=== PATIENT | male | born 1950 | race Hispanic/Latino ===

== ENCOUNTER 2017-09-04 11:49 | Outpatient (CLI) | payer MEDICARE ==
--- NOTE | 2017-09-04 13:35 | RAD ---
PA AND LATERAL VIEWS CHEST: HISTORY: Dyspnea. FINDINGS/IMPRESSION: Comparison is made with the exam of 12/08/16. Changes of median sternotomy are again noted. The hear t size is borderline. The aorta is tortuous. Changes of valve replacement surgery are redemonstrate d. There is a right-sided pleural effusion with persistent opacification of the right lung base. Th e left lung is clear. No pneumothoraces are seen. POS: [facility]
== END 2017-09-04 11:50 | disposition home or self-care (01) ==
LOC: RAD 11:49
PROVIDERS: ATTEND Internal Medicine
DX: J90 Pleural effusion, not elsewhere classified (principal); R91.8 Other nonspecific abnormal finding of lung field; Z98.890 Other specified postprocedural states
CPT/HCPCS: 71046

== ENCOUNTER 2017-11-03 15:06 | Emergency (ER) | payer MEDICARE ==
[2017-11-03 16:12] LABS: #Eosinphils 0.2 thou/uL (0.0-0.7); #Lymphocytes 0.9 thou/uL (1.20-3.40); #Monocytes 0.6 thou/uL (0.11-0.59); #Neutrophils 3.7 thou/uL (1.40-6.50); %Basophils 0.2 % (0.0-1.0); %Eosinophils 3.7 % (0.0-10.0); %Monocytes 11.1 % (0.0-10.0); Hemoglobin 11.9 g/dL (14.0-18.0); Mean Corpuscular HGB CONC 33.6 g/dL (32.0-36.0); Mean Corpuscular Hemoglobin 30.9 pg (27.0-31.0); Mean Corpuscular Volume 92.1 fL (78.0-98.0); Mean Platelet Volume 8.5 fL (7.4-10.4); Platelet Count 143 thou/uL (130-400); RBC Distribution Width 13.8 % (11.5-14.5); Red Blood Cell (RBC) Count 3.86 mill/uL (4.70-6.10); White Blood Cell (WBC) Count 5.5 thou/uL (4.8-10.8)
[2017-11-03 16:32] LABS: ALT (SGPT) 12 U/L (8-55); AST (SGOT) 15 U/L (5-34); Albumin 4.2 g/dL (3.4-4.8); Alkaline Phosphatase 129 U/L (40-150); Anion Gap 20 mmol/L (10-20); BUN (Urea Nitrogen) 67 mg/dL (8.4-25.7); Bilirubin, Total 0.5 mg/dL (0.2-1.2); Calc. Creatinine Clearance 0 mL/min (70-130); Calcium 8.8 mg/dL (7.8-10.44); Carbon Dioxide 24 mmol/L (23-31); Chloride 95 mmol/L (98-107); Estimated GFR-MDRD 7; Globulin 3.6 g/dL (2.4-3.5); Glucose 278 mg/dL (80-115); Potassium 6.4 mmol/L (3.5-5.1); Protein, Total 7.8 g/dL (5.8-8.1); Sodium 133 mmol/L (136-145)
[2017-11-03 17:41] LABS: HBSAg Index 0.19 S/CO (0-0.99); Hep B Surf Ag Non-Reactive S/CO (NonReactive)
--- NOTE | 2017-11-03 23:16 | CON ---
DATE OF CONSULTATION: 11/03/2017 REASON FOR CONSULTATION: Hyperkalemia. HISTORY OF PRESENT ILLNESS: This is a 67-year-old gentleman called by the emergency room after noted having a potassium of 6.4. The patient is on a high potassium diet, was dialyzed yesterday. The patient denies headache, numbness, tingling or weakness. EKG, chest pain. PAST MEDICAL HISTORY: Significant for end-stage renal disease, hypertension, anemia, diabetes mellitus, noncompliance with diet, history of AV fistula, cardiac stent. HOME MEDICATIONS: Reviewed. ALLERGIES: Reviewed. Soc eco non contributory FAMILY HISTORY: Negative for ESRD. REVIEW OF SYSTEMS: Fifteen-point review of systems was performed and was negative except for the positives noted above. GENERAL: Weakness. HEAD: Headache. NECK: No swelling or lumps. NOSE: No epistaxis or discharge. EYES: No diplopia or pain. RESPIRATORY: Dyspnea. CARDIOVASCULAR: Chest pain. GASTROINTESTINAL: Nausea. /SHOT MAN: Hematuria. MUSCULOSKELETAL: No joint pain. NEUROPSYCHIATRIC SYSTEMS: No suicidal ideation. No ideation. SKIN: Denies any rash or ulcer. CONSTITUTIONAL: No fever or chills. PHYSICAL EXAMINATION: GENERAL: The patient is awake, alert. VITAL SIGNS: Afebrile, pulse 80, breathing at 16, blood pressure was 125/80. OBJECTIVE: See above. GENERAL APPEARANCE AND MENTAL STATUS: Fair. HEAD/NECK: Normocephalic. Atraumatic. EYES: EOMI. No deformity. EARS: Clear. No ulcers. NOSE: Intact. No lesions. MOUTH: Clear. No discharge. THROAT: Cl ear. No exudate. LUNGS: Clear. No crackles. CARDIAC: S1, S2. No rub. ABDOMEN: Benign. BS+. GENITALIA/RECTUM: Osborne absent. BACK/EXTREMITIES: Edema 0+ Ulcer-. NEUROLOGICAL: Alert and motor intact. SKIN: Rash- Bruise-. LYMPHATICS: Edema- Ulcer-. LABORATORY DATA: Potassium of 6.4. ASSESSMENT AND RECOMMENDATIONS: 1. Stage 6 chronic kidney disease, on dialysis. 2. Hyperkalemia, plan dialysis. 3. Anemia, stable. 4. Medication based on glomerular filtration rate are appropriate, compliance was discussed with the patient. [facility]
== END 2017-11-03 22:25 | disposition home or self-care (01) ==
LOC: ERS 15:06
DX: E87.5 Hyperkalemia (principal); E78.5 Hyperlipidemia, unspecified; I10 Essential (primary) hypertension; I25.10 Atherosclerotic heart disease of native coronary artery without angina pectoris; E11.9 Type 2 diabetes mellitus without complications; Z86.73 Personal history of transient ischemic attack (TIA), and cerebral infarction without residual deficits; Z99.2 Dependence on renal dialysis; Z87.891 Personal history of nicotine dependence; Z79.899 Other long term (current) drug therapy
CPT/HCPCS: 36415; 80053; 80061; 83036; 84443; 85025; 87340; 90935; 93005; G0257

== ENCOUNTER → 2018-02-02 | Day surgery (SDC) | payer MEDICARE ==
[2018-02-01 10:52] VITALS: BMI 25.0
[~2018-02-02] MED LIST: Labetalol HCl 100 MG/20 ML VIAL ONE
--- NOTE | 2018-02-02 19:03 | OP ---
DATE OF PROCEDURE: 02/02/2018 PROCEDURE: Esophagogastroduodenoscopy with biopsy and colonoscopy with snare polypectomy. PREOPERATIVE DIAGNOSIS: Gastroesophageal reflux and nausea and personal history of colon polyps with last colonoscopy in 06/2014. PROCEDURE IN DETAIL: Informed consent was obtained from the patient. He was sedated with total intr avenous anesthesia. The bite block was placed and the endoscope was advanced easily to the second po rtion of the duodenum and retroflexion was performed in the stomach. The esophagus appeared normal o verall; however, there was a possible 0.5-1 cm segment of salmon-colored Calhoun's mucosa in the dist al esophagus, which was biopsied to evaluate for Calhoun's. The stomach had erythematous gastritis i n the fundus and mild erythematous gastritis in the antrum. Biopsies were obtained from the fundus a nd antrum. The duodenum had erythematous gastritis in the first portion of the duodenum. Biopsies w ere obtained from the duodenum. Second portion of the duodenum was normal overall. The colon had a fair prep. The rectal exam was unremarkable. The colonoscope was advanced to the cecum where the il eocecal valve and appendiceal orifice were clearly identified. There was a 6 mm polyp removed from t he cecum by snare cautery polypectomy. A 6 mm polyp was removed from the transverse colon by snare c autery polypectomy. Two 6 mm polyps were removed from the descending colon by snare cautery polypect zuleyka. A 4 mm polyp was removed from the descending colon by cold snare. There were 2 polyps removed from the sigmoid colon by snare cautery polypectomy measuring 5-6 mm each. There was a 4 mm polyp re moved from the sigmoid colon by cold snare polypectomy. Retroflexed views in the rectum were unremar kable. IMPRESSION: 1. Erythematous gastritis in the antrum and fundus of the stomach. Biopsies taken. 2. Possible 0.5 cm segment of Calhoun's esophagus in the distal esophagus, biopsied. 3. Erythematous duodenitis, biopsied. 4. A 6 mm cecum polyp. 5. A 6 mm transverse polyp. 6. Three polyps removed from the descending measuring 4-6 mm. 7. Three polyps removed from the sigmoid colon measuring 4-6 mm. RECOMMENDATIONS: 1. Await histopathology. 2. Repeat colonoscopy in 3 years given the multiple polyps and fair colon prep. 3. Follow up in GI clinic.
== END ==
LOC: SDC 10:25
PROVIDERS: ATTEND Internal Medicine Gastroenterology
PROC: 0DB98ZX Excision of Duodenum, Via Natural or Artificial Opening Endoscopic, Diagnostic (ICD-10-PCS; principal; 2018-02-02)
PROC: 0DB78ZX Excision of Stomach, Pylorus, Via Natural or Artificial Opening Endoscopic, Diagnostic (ICD-10-PCS; 2018-02-02)
PROC: 0DB58ZX Excision of Esophagus, Via Natural or Artificial Opening Endoscopic, Diagnostic (ICD-10-PCS; 2018-02-02)
PROC: 0DBH8ZX Excision of Cecum, Via Natural or Artificial Opening Endoscopic, Diagnostic (ICD-10-PCS; 2018-02-02)
PROC: 0DBL8ZX Excision of Transverse Colon, Via Natural or Artificial Opening Endoscopic, Diagnostic (ICD-10-PCS; 2018-02-02)
PROC: 0DBN8ZX Excision of Sigmoid Colon, Via Natural or Artificial Opening Endoscopic, Diagnostic (ICD-10-PCS; 2018-02-02)
PROC: 0DBM8ZX Excision of Descending Colon, Via Natural or Artificial Opening Endoscopic, Diagnostic (ICD-10-PCS; 2018-02-02)
DX: D12.0 Benign neoplasm of cecum (principal); D12.3 Benign neoplasm of transverse colon; D12.4 Benign neoplasm of descending colon; D12.5 Benign neoplasm of sigmoid colon; K63.5 Polyp of colon; K29.50 Unspecified chronic gastritis without bleeding; K29.80 Duodenitis without bleeding; K20.9 Esophagitis, unspecified; K21.9 Gastro-esophageal reflux disease without esophagitis; F17.200 Nicotine dependence, unspecified, uncomplicated; Z86.010 Personal history of colon polyps; Z99.2 Dependence on renal dialysis; Z79.52 Long term (current) use of systemic steroids; Z79.4 Long term (current) use of insulin; Z79.899 Other long term (current) drug therapy; Z91.018 Allergy to other foods
CPT/HCPCS: 36416; 88305; 88312; 88313

== ENCOUNTER 2018-02-11 02:19 | Inpatient (IN) | payer MEDICARE ==
[2018-02-11] MEDS ORDERED: Ondansetron PF 4 MG/2 ML Vial ONE ×2 (02:24→05:06)
[2018-02-11] MEDS ORDERED: Pantoprazole 40 MG VIAL ONE (02:52)
[2018-02-11 03:05] LABS: #Eosinphils 0.1 thou/uL (0.0-0.7); #Lymphocytes 0.7 thou/uL (1.20-3.40); #Monocytes 0.5 thou/uL (0.11-0.59); #Neutrophils 4.6 thou/uL (1.40-6.50); %Basophils 0.7 % (0.0-1.0); %Lymphocytes 11.3 % (21.0-51.0); %Monocytes 8.3 % (0.0-10.0); %Neutrophils 77.6 % (42.0-75.0); Mean Corpuscular Hemoglobin 30.2 pg (27.0-31.0); Mean Corpuscular Volume 94.4 fL (78.0-98.0); Mean Platelet Volume 9.3 fL (7.4-10.4); Platelet Count 121 thou/uL (130-400); RBC Distribution Width 14.5 % (11.5-14.5); Red Blood Cell (RBC) Count 3.65 mill/uL (4.70-6.10); White Blood Cell (WBC) Count 5.9 thou/uL (4.8-10.8)
[2018-02-11 03:23] LABS: ALT (SGPT) 23 U/L (8-55); AST (SGOT) 26 U/L (5-34); Albumin 4.9 g/dL (3.4-4.8); Alkaline Phosphatase 112 U/L (40-150); Anion Gap 18 mmol/L (10-20); BUN (Urea Nitrogen) 44 mg/dL (8.4-25.7); Bilirubin, Total 0.7 mg/dL (0.2-1.2); CK (CPK) 81 U/L (30-200); Calc. Creatinine Clearance 0 mL/min (70-130); Calcium 10.3 mg/dL (7.8-10.44); Carbon Dioxide 32 mmol/L (23-31); Chloride 94 mmol/L (98-107); Estimated GFR-MDRD 10; Globulin 3.9 g/dL (2.4-3.5); Glucose 168 mg/dL (80-115); Lipase 43 U/L (8-78); Protein, Total 8.8 g/dL (5.8-8.1); Sodium 139 mmol/L (136-145)
[2018-02-11 03:27] LABS: CKMB 2.6 ng/mL (0-6.6)
[2018-02-11 06:30] LABS: Troponin I 0.035 ng/mL (< 0.028)
[2018-02-11] MEDS ORDERED: Acetaminophen 325 MG TAB PO PRN (07:22)
[2018-02-11] MEDS ORDERED: Ondansetron ODT 4 MG TAB PO PRN (07:22)
[2018-02-11] MEDS ORDERED: Ondansetron PF 4 MG/2 ML Vial IVP PRN (07:22)
[2018-02-11] MEDS ORDERED: Sodium Chloride 0.9% 1,000 ML IV SCH ×2 (07:30→16:39)
[2018-02-11 08:22] VITALS: BMI 24.5
[2018-02-11 09:14] LABS: Troponin I 0.032 ng/mL (< 0.028)
--- NOTE | 2018-02-11 11:52 | CON ---
DATE OF CONSULTATION: 02/11/2018 HISTORY OF PRESENT ILLNESS: The patient is a 67-year-old gentleman, patient of Dr. Nagy's, who was in his normal state of health until dialysis yesterday when he finished dialysis and had nicolle e vomiting. He reports vomiting is typical after his dialysis. He tends to vomit every time after d ialysis. This time, it had some blood with it. He says he had vomited blood in the past, but this w as more than typical. The patient just underwent upper and lower endoscopy by Dr. Nagy on 8, which showed some gastritis, duodenitis and several colon polyps. Histopathology showed no signif icant abnormalities. The polyps are mostly adenomatous. He denies any weight loss, any melena or he matochezia. PAST MEDICAL HISTORY: End-stage renal disease. PAST SURGICAL HISTORY: Includes coronary artery bypass and dialysis placement. MEDICATIONS: Include Zocor 40 mg p.o. at bedtime, insulin, Protonix 40 mg p.o. daily, lisinopril 5 m g p.o. daily, isosorbide mononitrate 30 mg p.o. daily, Coreg 12.5 mg p.o. b.i.d., PhosLo 1334 mg p.o. t.i.d., glipizide 5 mg p.o. q.a.m. ALLERGIES: CHEESE. SOCIAL HISTORY: He is a former smoker, does not drink alcohol. FAMILY HISTORY: Negative for GI or liver disease. REVIEW OF SYSTEMS: Constitutional: No fever or chills, no weight loss. Eyes: No blurred vision, d ouble vision. ENT: No sore throat or earaches. Cardiovascular: No chest pain or palpitations. Pu lmonary: No shortness of breath, cough or wheezing. Gastrointestinal: See above. Genitourinary: No hematuria or dysuria. Musculoskeletal: No joint pain or muscle weakness. PHYSICAL EXAMINATION: VITAL SIGNS: Temperature 98.0, pulse 72, respiratory rate 18, blood pressure 142/64. HEENT: Unremarkable. NECK: Supple. CHEST: Clear. CARDIOVASCULAR: Regular rate and rhythm. ABDOMEN: Soft, nontender, without organomegaly or masses. EXTREMITIES: Normal. RECTAL: Deferred. LABORATORY DATA: Shows a white blood cell count of 5.9, hemoglobin 11.0, hematocrit 34.4. Chemistri es show a BUN of 44, creatinine 5.64, CO2 32. ASSESSMENT: 1. Hematemesis - this may be a mild Babs-Lugo tear or may be some gastritis. I doubt this is cl inically significant as his H&H were fairly normal. 2. Chronic vomiting after dialysis. 3. End-stage renal disease on hemodialysis. 4. Coronary artery disease. RECOMMENDATIONS: 1. Frequent antiemetics. 2. May begin clear liquids. 3. We would not repeat EGD at this time unless symptoms persist. 4. Low dose Reglan.
[2018-02-11] MEDS: Metoclopramide HCl 10 MG/2 ML VIAL IVP SCH ×2 (13:59→21:37)
[2018-02-11] MEDS ORDERED: Dextrose 50% Abboject 50 ML SYRINGE SLOW IVP PRN (16:41)
[2018-02-11] MEDS ORDERED: HumaLOG 300 UNITS/3 ML VIAL SC PRN ×2 (16:41)
[2018-02-11] MEDS ORDERED: Dextrose 5% in Water 1,000 ML IV PRN (16:41)
[2018-02-11] MEDS: Calcium Acetate 667 MG CAP PO SCH (18:00)
[2018-02-11] MEDS: Carvedilol 25 MG TAB PO SCH (21:36)
--- NOTE | 2018-02-11 23:59 | HP ---
DATE OF ADMISSION: 02/11/2018 PRIMARY CARE PROVIDER: Dr. Alfie Smith. CHIEF COMPLAINT: Nausea and vomiting. HISTORY OF PRESENT ILLNESS: This is a 67-year-old male who presented to [facility] Emergency Department after complaining of emesis starting approximately 1900 p.m. on 02/10/2018. [facility] patient states he typically has nausea and vomiting after dialysis which he completed on 02/10/2018 . The patient noted small amount of blood in his vomitus and has had previous episodes of hematemesi s. The patient recently underwent EGD and colonoscopy exam on 02/02/2018 showing mild gastritis in [facility] antrum and fundus of the stomach. The patient was also noted with mild 0.5 cm segment of Calhoun' s esophagus in the distal region. Patient reports that he typically has some nausea after completing dialysis, which he has been consistent with it. The patient denied taking any specific home remedie s and presented to emergency room for evaluation. The patient denied any recent trauma, injury or an ticoagulation exposure. The patient denied any recent travel history or change to his bowel habits. In the emergency room, the patient underwent general evaluation receiving IV Zofran and Protonix. C BC assessment showed hemoglobin of 11 consistent with prior values. The patient was transferred to [facility] telemetry unit for further evaluation and monitoring. PAST MEDICAL HISTORY: 1. Gastritis/esophagitis. 2. End-stage renal disease with hemodialysis. 3. History of paroxysmal atrial fibrillation. 4. Diabetes mellitus type 2. 5. Hypertension. 6. Anemia of chronic kidney disease. 3. Gastroesophageal reflux disease. PAST SURGICAL HISTORY: 1. Status post aortic valve replacement in 2017. 2. Status post AV fistula placement in the right upper extremity. CURRENT MEDICATIONS: 1. PhosLo 1334 mg p.o. t.i.d. 2. Coreg 12.5 mg p.o. b.i.d. 3. Glipizide 5 mg p.o. q.a.m. 4. Humulin R. b.i.d. with meals. 5. Isosorbide mononitrate 30 mg p.o. daily. 6. Lisinopril 5 mg p.o. daily. 7. Protonix 40 mg p.o. daily. 8. Zocor 40 mg p.o. at bedtime. ALLERGIES: No known drug allergies. FAMILY HISTORY: Positive for diabetes and hypertension. SOCIAL HISTORY: No current alcohol, tobacco or illicit drug use. Accompanied by his son in the hosp ital. REVIEW OF SYSTEMS: The following complete review of systems was negative, unless otherwise mentioned in the HPI or below: Constitutional: Weight loss or gain, ability to conduct usual activities. Skin: Rash, itching. Eyes: Double vision, pain. ENT/Mouth: Nose bleeding, neck stiffness, pain, tenderness. Cardiovascular: Palpitations, dyspnea on exertion, orthopnea. Respiratory: Shortness of breath, wheezing, cough, hemoptysis, fever or night sweats. Gastrointestinal: Poor appetite, abdominal pain, heartburn, nausea, vomiting, constipation, or diarr hea. Genitourinary: Urgency, frequency, dysuria, nocturia. Musculoskeletal: Pain, swelling. Neurologic/Psychiatric: Anxiety, depression. Allergy/Immunologic: Skin rash, bleeding tendency. Otherwise negative except as stated per HPI. PHYSICAL EXAMINATION: VITAL SIGNS: Currently, blood pressure 139/62, pulse 65, respiratory rate 17, temperature 97.5 degre es Fahrenheit, O2 saturation 94% on room air. GENERAL APPEARANCE: This is a 67-year-old male, alert and responsive, smiling, in no acute distress. HEENT: Pupils are equal, round, and reactive to light and accommodation. Extraocular muscles are in tact. No scleral icterus, no conjunctival injection. Nares patent. OP is clear. Teeth in poor rep air. NECK: Supple, no cervical adenopathy, no thyromegaly, no carotid bruits, no JVD noted. No meningeal signs noted. CHEST: Lungs are clear to auscultation bilaterally. CARDIOVASCULAR: S1, S2 with 1-2/6 systolic ejection murmur in the right upper sternal border. ABDOMEN: Soft, rounded, nontender, nondistended. Bowel sounds are positive in all four quadrants. There is no hepatosplenomegaly, no abdominal bruits, no rebound or guarding noted. EXTREMITIES: Warm and dry with fair turgor. No clubbing, cyanosis or asymmetric edema appreciated. Pulses are palpable distally at the dorsalis pedis, posterior tibial, and popliteal arteries bilater ally. Capillary refill less than 2 seconds. Right upper extremity AV fistula noted. NEUROLOGIC: Cranial nerves II-XII are grossly intact. No focal or lateralizing signs appreciated. PERTINENT LABORATORY AND X-RAY FINDINGS: Sodium 139, potassium 5.0, chloride 94, CO2 of 32, BUN 44, creatinine 5.65, estimated GFR of 10, glucose 168, calcium 10.3. LFTs within normal limits. Lipase 43, troponin I ranged between 0.030-0.035. CBC showed a white blood cell count of 5.9, hemoglobin 11 , hematocrit 34, platelet count 121 with 78% neutrophils. Gastric occult blood positive x1 on 2017. EKG dated 02/11/2018 by my interpretation shows sinus mechanism with heart rates in the 60s. Normal R-wave progression noted in precordial leads. Isolated T-wave inversion in lead V6. No acute ST-T wave changes appreciated. ASSESSMENT AND PLAN: 1. Hematemesis. Suspect mild Babs-Lugo tear with emesis. We will continue antiemetics and nano tor clinical response. IV fluids with normal saline at 50 mL per hour. Continue Protonix 40 mg p.o. daily. Serial CBC. Recent EGD completed on 02/02/2018. 2. Nausea and vomiting. Appears correlated with hemodialysis sessions. Recommend antiemetics prior to and during hemodialysis sessions. 3. End-stage renal disease with hemodialysis. Stable currently. No evidence to suggest acute volum e overload. Resume regular hemodialysis sessions on 02/12/2018. 4. Anemia of chronic kidney disease. Stable hemoglobin trend when comparing hemoglobin dating back to 2017. Repeat CBC in the a.m. 5. Diabetes mellitus type 2. Resume home oral hypoglycemics when tolerating p.o. intake. Accu-Chek s a.c. and at bedtime. Insulin sliding scale for reflexive coverage. 6. Hypertension. Resume home antihypertensive regimen and monitor clinical response. 7. Prophylaxis. Sequential compression devices while in bed. Protonix 40 mg p.o. daily. 8. Code status is FULL. Surrogate medical decision maker is patient's son.
[2018-02-12] MEDS: Metoclopramide HCl 10 MG/2 ML VIAL IVP SCH ×3 (05:55→21:31)
[2018-02-12 06:50] LABS: Band 3 % (5-11); Hemoglobin 9.9 g/dL (14.0-18.0); Lymphocytes 15 % (21-51); MDiff Complete? YES; Mean Corpuscular HGB CONC 31.9 g/dL (32.0-36.0); Mean Corpuscular Hemoglobin 30.3 pg (27.0-31.0); Mean Corpuscular Volume 95.1 fL (78.0-98.0); Mean Platelet Volume 9.3 fL (7.4-10.4); Monocytes 11 % (0-10); Neutrophil 71 % (42-75); PLT Morphology Comment Appears Decreased; Platelet Count 104 thou/uL (130-400); RBC Distribution Width 14.2 % (11.5-14.5); Red Blood Cell (RBC) Count 3.27 mill/uL (4.70-6.10); White Blood Cell (WBC) Count 6.4 thou/uL (4.8-10.8)
[2018-02-12 07:01] LABS: ALT (SGPT) 14 U/L (8-55); AST (SGOT) 14 U/L (5-34); Albumin 4.1 g/dL (3.4-4.8); Alkaline Phosphatase 92 U/L (40-150); Anion Gap 16 mmol/L (10-20); BUN (Urea Nitrogen) 66 mg/dL (8.4-25.7); Bilirubin, Total 0.6 mg/dL (0.2-1.2); Calc. Creatinine Clearance 9 mL/min (70-130); Calcium 9.2 mg/dL (7.8-10.44); Carbon Dioxide 26 mmol/L (23-31); Chloride 101 mmol/L (98-107); Estimated GFR-MDRD 8; Glucose 87 mg/dL (80-115); Potassium 5.4 mmol/L (3.5-5.1); Protein, Total 7.1 g/dL (5.8-8.1); Sodium 138 mmol/L (136-145)
[2018-02-12] MEDS: Calcium Acetate 667 MG CAP PO SCH ×3 (08:34→18:39)
[2018-02-12] MEDS: Lisinopril 5 MG TAB PO SCH ×2 (08:35→12:59)
[2018-02-12] MEDS: glipiZIDE 5 MG TAB PO SCH (08:35)
[2018-02-12] MEDS: Carvedilol 25 MG TAB PO SCH ×2 (08:49→21:31)
[2018-02-12 12:41] LABS: Hemoglobin 9.6 g/dL (14.0-18.0)
--- NOTE | 2018-02-12 14:55 | PDOC.PN ---
- Subjective Encounter Start Date: 02/12/18 Encounter Start Time: 09:00 Patient seen and examined for GI bleeding. No new hematemesis/melena. No overnight events - Objective MAR Reviewed: Yes Vital Signs & Weight: Vital Signs (12 hours) Temp Pulse Resp BP Pulse Ox 02/12/18 12:59 60 02/12/18 12:00 98.1 F 52 L 128/71 94 L 02/12/18 08:00 98.3 F 60 17 135/63 98 02/12/18 03:25 98.1 F 62 14 143/67 H 93 L Weight Weight 139 lb 11.2 oz I&O: 02/11/18 02/12/18 02/13/18 06:59 06:59 06:59 Intake Total 1000 Output Total 30 Balance 970 Result Diagrams: 02/12/18 12:24 02/12/18 05:56 Additional Labs: Accuchecks 02/12/18 02/12/18 02/11/18 10:55 05:57 20:39 POC Glucose 230 H 85 177 H 02/11/18 17:06 POC Glucose 87 EKG Reviewed by me: Yes (Tele SR) Phys Exam - Physical Examination Constitutional: NAD Respiratory: no wheezing, no rhonchi Cardiovascular: RRR, no rub Gastrointestinal: soft, non-tender, positive bowel sounds Musculoskeletal: no edema Neurological: moves all 4 limbs Dx/Plan - Plan DVT proph w/SCDs 1. UGI bleed Monitor HH Cont PPI 2. ESRD on dialysis / Hyperkalemia Consult Nephrology for dialysis today (MWF) 3. Acute GI blood loss Anemia 4. CAD Cont Coreg Hold ACEI due to hyperkalemia 5. DM2 Cont sliding scale with Glipizide 6. Other issues per previous notes Review of Systems - Review of Systems Respiratory: negative: Cough, Dry, Shortness of Breath, Hemoptysis, SOB with Excertion, Pleuritic Pain, Sputum, Wheezing Cardiovascular: negative: chest pain, palpitations, orthopnea, paroxysmal nocturnal dyspnea, edema, light headedness, other - Medications/Allergies Allergies/Adverse Reactions: Allergies Allergy/AdvReac Type Severity Reaction Status Date / Time cheese Allergy Verified 02/11/18 08:26 Medications: Current Medications Calcium Acetate (Phoslo) 1,334 mg PO TID-[facility] Last Admin: 02/12/18 12:58 Dose: 1,334 mg Carvedilol (Coreg) 12.5 mg PO BID [facility] Last Admin: 02/12/18 08:49 Dose: 12.5 mg Dextrose/Water (Dextrose 50%) 25 gm SLOW IVP PRN PRN PRN Reason: Hypoglycemia Glipizide (Glucotrol) 5 mg PO QAM [facility] Last Admin: 02/12/18 08:35 Dose: 5 mg Glucagon (Glucagon) 1 mg IM PRN PRN PRN Reason: Hypoglycemia Dextrose/Water (D5w) 1,000 mls @ 0 mls/hr IV .Q0M PRN PRN Reason: Hypoglycemia Insulin Human Lispro (Humalog) 0 units SC .MILD SLIDING SCALE PRN PRN Reason: Mild Correctional Scale Insulin Human Lispro (Humalog) 0 units SC .BEDTIME SLIDING SC PRN PRN Reason: Bedtime Correctional Scale Lisinopril (Zestril) 5 mg PO DAILY [facility] Last Admin: 02/12/18 12:59 Dose: Not Given Metoclopramide HCl (Reglan) 5 mg IVP Q8HR [facility] Last Admin: 02/12/18 14:11 Dose: Not Given Pantoprazole Sodium (Protonix) 40 mg PO DAILY [facility] Last Admin: 02/12/18 08:35 Dose: 40 mg Sodium Chloride (Flush - Normal Saline) 10 ml IVF Q12HR [facility] Last Admin: 02/12/18 08:39 Dose: 10 ml Sodium Chloride (Flush - Normal Saline) 10 ml IVF PRN PRN PRN Reason: Saline Flush
[2018-02-12] MEDS ORDERED: hydrALAZINE 20 MG/ML VIAL SLOW IVP PRN (14:59)
--- NOTE | 2018-02-12 22:41 | CON ---
DATE OF CONSULTATION: 02/12/2018 NEPHROLOGY CONSULTATION REASON FOR CONSULTATION: End-stage renal disease, on maintenance hemodialysis. HISTORY OF PRESENT ILLNESS: A 67-year-old gentleman who presented to the hospital yesterday evening for nausea and vomiting. The patient denies headache, numbness, tingling or weakness. Denies any na usea at this time. PAST MEDICAL HISTORY: Significant for GERD, end-stage renal disease, hypertension, diabetes mellitus , atrial fibrillation, anemia, chronic kidney, status aortic valve replacement, AV fistula. HOME MEDICATIONS: Reviewed. HOSPITAL MEDICATIONS: Reviewed. ALLERGIES: Reviewed. SOCIAL HISTORY: No alcohol or drug use. REVIEW OF SYSTEMS: A 15-point review of systems was performed and was negative except for positives noted above. GENERAL: Weakness- HEAD: Headache- NECK: No swelling or lumps. NOSE: No epistaxis or discharge. EYES: No diplopia or pain. RESPIRATORY: Dyspnea- CARDIOVASCULAR: Chest pain- GASTROINTESTINAL: Nausea- /PHARMACOLOGY PROFESSOR: Hematuria- MUSCULOSKELETAL: No joint pain. NEUROPSYCHIATIC SYSTEMS: No suicidal ideation. No ideation. SKIN: Denies any rash or ulcer. CONSTITUTIONAL: No fever or chills. PHYSICAL EXAMINATION: GENERAL APPEARANCE: The patient is awake and alert. VITAL SIGNS: Afebrile, pulse 63, respirations 16, blood pressure 135/66. HEAD/NECK: Normocephalic. Atraumatic. EYES: EOMI. No deformity. EARS: Clear. No ulcers. NOSE: Intact. No lesions. MOUTH: Clear. No discharge. THROAT: Clear. No exudate. LUNGS: Clear. No crackles. CARDIAC: S1, S2. No rub. ABDOMEN: Benign. BS+. GENITALIA/RECTUM: Osborne absent. BACK/EXTREMITIES: Edema 0+ Ulcer- NEUROLOGICAL: Alert and motor intact. SKIN: Rash- Bruise- LYMPHATICS: Edema- Ulcer- LABORATORY DATA: Show hemoglobin 9.6, potassium 5.4. ASSESSMENT AND PLAN: 1. Stage 6 chronic kidney disease, plan hemodialysis. 2. Hypertension, stable. 3. Hyperkalemia, plan dialysis. 4. Anemia, stable. 5. Medications based on glomerular filtration rate are appropriate.
[2018-02-13 05:56] LABS: #Eosinphils 0.2 thou/uL (0.0-0.7); #Lymphocytes 0.7 thou/uL (1.20-3.40); #Monocytes 0.6 thou/uL (0.11-0.59); #Neutrophils 3.7 thou/uL (1.40-6.50); %Basophils 0.3 % (0.0-1.0); %Eosinophils 2.9 % (0.0-10.0); %Lymphocytes 14.2 % (21.0-51.0); %Monocytes 10.7 % (0.0-10.0); %Neutrophils 71.9 % (42.0-75.0); Hemoglobin 9.5 g/dL (14.0-18.0); Mean Corpuscular HGB CONC 32.1 g/dL (32.0-36.0); Mean Corpuscular Hemoglobin 30.4 pg (27.0-31.0); Mean Corpuscular Volume 94.5 fL (78.0-98.0); Mean Platelet Volume 9.4 fL (7.4-10.4); Platelet Count 102 thou/uL (130-400); RBC Distribution Width 14.2 % (11.5-14.5); Red Blood Cell (RBC) Count 3.13 mill/uL (4.70-6.10); White Blood Cell (WBC) Count 5.1 thou/uL (4.8-10.8)
[2018-02-13 06:05] LABS: Anion Gap 13 mmol/L (10-20); BUN (Urea Nitrogen) 28 mg/dL (8.4-25.7); Calc. Creatinine Clearance 13 mL/min (70-130); Calcium 9.2 mg/dL (7.8-10.44); Carbon Dioxide 30 mmol/L (23-31); Chloride 97 mmol/L (98-107); Estimated GFR-MDRD 12; Glucose 85 mg/dL (80-115); Potassium 4.2 mmol/L (3.5-5.1); Sodium 136 mmol/L (136-145)
[2018-02-13] MEDS: Metoclopramide HCl 10 MG/2 ML VIAL IVP SCH (06:09)
[2018-02-13] MEDS: Calcium Acetate 667 MG CAP PO SCH ×2 (08:25→13:15)
[2018-02-13] MEDS: Carvedilol 25 MG TAB PO SCH (08:25)
[2018-02-13] MEDS: glipiZIDE 5 MG TAB PO SCH (08:25)
--- NOTE | 2018-02-13 11:36 | EKG ---
Test Reason : Blood Pressure : / mmHG Vent. Rate : 064 BPM Atrial Rate : 064 BPM P-R Int : 156 ms QRS Dur : 092 ms QT Int : 456 ms P-R-T Axes : 080 039 138 degrees QTc Int : 470 ms Normal sinus rhythm T wave abnormality, consider lateral ischemia Prolonged QT Abnormal ECG Confirmed by ZAKIA MARTINEZ DO ([id number]), editor in chief newspaper CARA HART ([id number]) on 02/13/2018 11:35:49 AM Referred By: Confirmed By:ZAKIA MARTINEZ DO
--- NOTE | 2018-02-13 11:51 | PRG ---
DATE OF SERVICE: 02/13/2018 SUBJECTIVE: A 67-year-old gentleman being seen for end-stage renal disease. Patient denies any naus ea, vomiting or chest pain. PHYSICAL EXAMINATION: GENERAL: Patient is awake, alert. VITAL SIGNS: Afebrile, pulse 85, breathing 16, blood pressure was 133/65. HEAD/NECK: Normocephalic. Atraumatic. EYES: EOMI. No deformity. EARS: Clear. No ulcers. NOSE: Intact. No lesions. MOUTH: Clear. No discharge. THROAT: Clear. No exudate. LUNGS: Clear. No crackles. CARDIAC: S1, S2. No rub. ABDOMEN: Benign. BS+. GENITALIA/RECTUM: Osborne absent. BACK/EXTREMITIES: Edema 0+ Ulcer- NEUROLOGICAL: Alert and motor intact. SKIN: Rash- Bruise- LYMPHATICS: Edema- Ulcer- LABORATORY DATA: Show hemoglobin 9.5, creatinine 4.8. ASSESSMENT AND RECOMMENDATIONS: 1. Stage 6 chronic kidney disease. We will plan dialysis on Thursday. 2. Hypertension, stable. 3. Anemia, stable. 4. Medications based on glomerular filtration rate are appropriate.
[2018-02-13 12:10] VITALS: BP 128/64; TEMP 98.2
--- NOTE | 2018-02-14 07:15 | DIS ---
DATE OF DISCHARGE: 02/13/2018 DISCHARGE DISPOSITION: Home. FOLLOWUP: 1. Follow up with primary care physician, Dr. Smith. 2. Follow up with Dr. Aung Nagy after 2 weeks. The patient was seen and examined on the day of discharge. Denies any new complaints. No chest pain , shortness of breath or palpitations. BRIEF HOSPITAL COURSE: The patient is a 67-year-old male with recent EGD, presented to the emergency room with nausea, vomiting, and hematemesis. Please refer to the history and physical for further d etails. The patient was admitted to the hospital with a diagnosis of suspected upper GI bleeding. The patien t was seen by Gastroenterology, Dr. Skyler Wong. Please note that he underwent EGD recently as outpat ient by Dr. Nagy. He was started on PPIs. His H and H on admission was 11 and at discharge is 9.5. There was no need to repeat EGD per Gastroenterology. He also underwent hemodialysis during this h ospital stay. He has been cleared by Gastroenterology for discharge. FINAL DIAGNOSES: 1. Upper gastrointestinal bleed, probably secondary to gastritis, resolved. 2. Acute gastrointestinal blood loss anemia. 3. End-stage renal disease, on dialysis, with hyperkalemia, improved. 4. Coronary artery disease. 5. Diabetes mellitus, type 2. Plan of care was discussed with the patient in detail. He stated understanding.
== END 2018-02-13 15:00 | disposition home or self-care (01) | DRG 377 ==
LOC: ERS 02:19 → 2NO 07:15
PROVIDERS: ADMIT Internal Medicine; ATTEND Internal Medicine
PROC: 5A1D70Z Performance of Urinary Filtration, Intermittent, Less than 6 Hours Per Day (ICD-10-PCS; principal; 2018-02-11)
DX: K92.2 Gastrointestinal hemorrhage, unspecified (principal); N18.6 End stage renal disease; I12.0 Hypertensive chronic kidney disease with stage 5 chronic kidney disease or end stage renal disease; D62 Acute posthemorrhagic anemia; Z95.1 Presence of aortocoronary bypass graft; I25.10 Atherosclerotic heart disease of native coronary artery without angina pectoris; K21.9 Gastro-esophageal reflux disease without esophagitis; Z99.2 Dependence on renal dialysis; I48.0 Paroxysmal atrial fibrillation; E11.22 Type 2 diabetes mellitus with diabetic chronic kidney disease; D63.1 Anemia in chronic kidney disease; Z95.2 Presence of prosthetic heart valve; Z79.899 Other long term (current) drug therapy; Z79.4 Long term (current) use of insulin; E87.5 Hyperkalemia
CPT/HCPCS: 36415; 36416; 80048; 80053; 82271; 82550; 82553; 83690; 84484; 85007; 85025; 85027; 93005; 94760; 96374; 96375; 96376; C9113; J2405; J2765

== ENCOUNTER 2018-03-17 17:37 | Emergency (ER) | payer MEDICARE ==
[2018-03-17] MEDS ORDERED: Oxymetazoline HCl 0.05% ( 15 ML ) ONE (18:27)
[2018-03-17 18:50] LABS: #Eosinphils 0.2 thou/uL (0.0-0.7); #Lymphocytes 0.6 thou/uL (1.20-3.40); #Monocytes 0.6 thou/uL (0.11-0.59); #Neutrophils 4.2 thou/uL (1.40-6.50); %Basophils 0.8 % (0.0-1.0); %Eosinophils 2.9 % (0.0-10.0); %Monocytes 10.3 % (0.0-10.0); Hemoglobin 11.4 g/dL (14.0-18.0); Mean Corpuscular HGB CONC 32.7 g/dL (32.0-36.0); Mean Corpuscular Hemoglobin 31.7 pg (27.0-31.0); Mean Platelet Volume 8.7 fL (7.4-10.4); Platelet Count 138 thou/uL (130-400); RBC Distribution Width 14.1 % (11.5-14.5); Red Blood Cell (RBC) Count 3.59 mill/uL (4.70-6.10); White Blood Cell (WBC) Count 5.5 thou/uL (4.8-10.8)
[2018-03-17 19:00] LABS: INR-International Normal Ratio 1.1; Prothrombin Time 14.3 SEC (12.0-14.7)
[2018-03-17 19:01] LABS: PTT 31.6 SEC (22.9-36.1)
[2018-03-17 19:15] LABS: ALT (SGPT) 13 U/L (8-55); AST (SGOT) 19 U/L (5-34); Albumin 4.4 g/dL (3.4-4.8); Alkaline Phosphatase 112 U/L (40-150); Anion Gap 15 mmol/L (10-20); BUN (Urea Nitrogen) 30 mg/dL (8.4-25.7); Bilirubin, Total 0.5 mg/dL (0.2-1.2); Calc. Creatinine Clearance 0 mL/min (70-130); Calcium 8.8 mg/dL (7.8-10.44); Carbon Dioxide 27 mmol/L (23-31); Chloride 100 mmol/L (98-107); Estimated GFR-MDRD 12; Globulin 3.7 g/dL (2.4-3.5); Glucose 133 mg/dL (80-115); Potassium 4.7 mmol/L (3.5-5.1); Protein, Total 8.1 g/dL (5.8-8.1); Sodium 137 mmol/L (136-145)
== END 2018-03-17 19:31 | disposition home or self-care (01) ==
LOC: ERS 17:37
DX: R04.0 Epistaxis (principal); E78.5 Hyperlipidemia, unspecified; I10 Essential (primary) hypertension; I25.10 Atherosclerotic heart disease of native coronary artery without angina pectoris; E11.9 Type 2 diabetes mellitus without complications; Z86.73 Personal history of transient ischemic attack (TIA), and cerebral infarction without residual deficits; Z87.891 Personal history of nicotine dependence; Z79.82 Long term (current) use of aspirin; Z79.899 Other long term (current) drug therapy
CPT/HCPCS: 30901; 36415; 80053; 85025; 85610; 85730

== ENCOUNTER 2018-05-19 20:30 | Outpatient (CLI) | payer MEDICARE | END 2018-05-19 20:31 | disposition home or self-care (01) | LOC: SLEEPLAB 20:30 | PROVIDERS: ATTEND Internal Medicine | DX: G47.33 Obstructive sleep apnea (adult) (pediatric) (principal); K21.9 Gastro-esophageal reflux disease without esophagitis; R06.83 Snoring; I10 Essential (primary) hypertension; I25.10 Atherosclerotic heart disease of native coronary artery without angina pectoris; I63.9 Cerebral infarction, unspecified; E11.9 Type 2 diabetes mellitus without complications; G47.61 Periodic limb movement disorder | CPT/HCPCS: 95811 ==

== ENCOUNTER 2018-06-02 23:01 | Inpatient (IN) | payer MEDICARE ==
[2018-06-03 00:32] LABS: #Eosinphils 0.1 thou/uL (0.0-0.7); #Lymphocytes 0.7 thou/uL (1.20-3.40); #Monocytes 0.6 thou/uL (0.11-0.59); #Neutrophils 4.5 thou/uL (1.40-6.50); %Basophils 0.4 % (0.0-1.0); %Monocytes 10.5 % (0.0-10.0); %Neutrophils 75.1 % (42.0-75.0); Hemoglobin 10.6 g/dL (14.0-18.0); Mean Corpuscular HGB CONC 32.3 g/dL (32.0-36.0); Mean Corpuscular Volume 92.9 fL (78.0-98.0); Mean Platelet Volume 8.1 fL (7.4-10.4); Platelet Count 151 thou/uL (130-400); RBC Distribution Width 14.1 % (11.5-14.5); Red Blood Cell (RBC) Count 3.55 mill/uL (4.70-6.10)
[2018-06-03 00:53] LABS: ALT (SGPT) 9 U/L (8-55); AST (SGOT) 12 U/L (5-34); Albumin 3.8 g/dL (3.4-4.8); Alkaline Phosphatase 91 U/L (40-150); Anion Gap 16 mmol/L (10-20); BUN (Urea Nitrogen) 34 mg/dL (8.4-25.7); Bilirubin, Total 0.6 mg/dL (0.2-1.2); CRP (Inflammatory) 9.35 mg/dL (= or < 0.5); Calc. Creatinine Clearance 0 mL/min (70-130); Calcium 8.9 mg/dL (7.8-10.44); Carbon Dioxide 28 mmol/L (23-31); Chloride 96 mmol/L (98-107); Estimated GFR-MDRD 10; Globulin 3.4 g/dL (2.4-3.5); Glucose 236 mg/dL (80-115); Potassium 4.6 mmol/L (3.5-5.1); Protein, Total 7.2 g/dL (5.8-8.1); Sodium 135 mmol/L (136-145)
[2018-06-03 01:13] LABS: CKMB 2.4 ng/mL (0-6.6)
[2018-06-03] MEDS ORDERED: Piperacillin/Tazobactam 3.375 GM VIAL ONE (02:43)
[2018-06-03 03:38] VITALS: BMI 24.8
[2018-06-03] MEDS ORDERED: Acetaminophen 325 MG TAB PO PRN (04:08)
[2018-06-03] MEDS ORDERED: Ondansetron ODT 4 MG TAB SL PRN (04:08)
[2018-06-03] MEDS ORDERED: Ondansetron PF 4 MG/2 ML Vial IVP PRN (04:08)
--- NOTE | 2018-06-03 08:34 | RAD ---
THREE VIEWS OF THE RIGHT FOOT: Comparison: None. History: Right great toe pain. FINDINGS: Three views of the right foot shows soft tissue swelling at the tip of the great toe. There may be so me air in the soft tissues of the toe. No obvious fracture or dislocation is seen. IMPRESSION: No evidence of acute osseous abnormality. POS: [facility]
[2018-06-03] MEDS ORDERED: Prevnar 13-Val Conj/PF 0.5 ML SYRINGE IM ONE (09:00)
--- NOTE | 2018-06-03 12:35 | CON ---
DATE OF CONSULTATION: REASON FOR CONSULTATION: End-stage renal disease, on maintenance hemodialysis. HISTORY OF PRESENT ILLNESS: This is a very pleasant 68-year-old gentleman presented to the hospital with a foot infection. The patient denies any nausea, vomiting, or chest pain. The patient dialyzes Thursday, Thursday, Thursday, and was last dialyzed yesterday without any complications. PAST MEDICAL HISTORY: Significant for hypertension, GERD, diabetes mellitus, atrial fibrillation, anemia of chronic disease, tunneled dialysis catheter, aortic valve replacement, AV fistula, tunneled dialysis catheter. MEDICATION: List reviewed. ALLERGIES: REVIEWED. REVIEW OF SYSTEMS: 15-point review of systems was performed and was negative except for positives noted above. GENERAL: HEAD: NECK: No swelling or lumps. NOSE: No epistaxis or discharge. EYES: No diplopia or pain. RESPIRATORY: CARDIOVASCULAR: GASTROINTESTINAL: /SENIOR NET SOFTWARE ENGINEER: MUSCULOSKELETAL: No joint pain. NEUROPSYCHIATRIC SYSTEMS: No suicidal ideation. No ideation. SKIN: Denies any rash or ulcer. CONSTITUTIONAL: No fever or chills. PHYSICAL EXAMINATION: See above. CONSTITUTIONAL: Awake, alert, in no acute distress. VITAL SIGNS: Afebrile. Pulse is 64, breathing 16, blood pressure 103/57. GENERAL APPEARANCE AND MENTAL STATUS: Fair. HEAD/NECK: Normocephalic. Atraumatic. EYES: EOMI. No deformity. EARS: Clear. No ulcers. NOSE: Intact. No lesions. MOUTH: Clear. No discharge. THROAT: Clear. No exudate. LUNGS: Clear. No crackles. CARDIAC: S1, S2. No rub. ABDOMEN: Benign. Bowel sounds positive. GENITALIA/RECTUM: Osborne absent. BACK/EXTREMITIES: Edema 0+. NEUROLOGICAL: Alert and motor intact. SKIN: LYMPHATICS: LABORATORY DATA: Reviewed. ASSESSMENT AND PLAN: 1. Stage 6 chronic kidney disease, plan dialysis tomorrow. 2. Hypertension, stable. 3. Anemia, stable. 4. Cellulitis, management per primary team. Job ID: [id number]
[2018-06-03] MEDS: Calcium Acetate 667 MG CAP PO SCH ×2 (13:18→18:01)
[2018-06-03] MEDS: Metoclopramide HCl 10 MG TAB PO SCH ×2 (13:19→20:50)
[2018-06-03] MEDS ORDERED: Dextrose 5% in Water 1,000 ML IV PRN (15:48)
[2018-06-03] MEDS ORDERED: Dextrose 50% Abboject 50 ML SYRINGE SLOW IVP PRN (15:48)
--- NOTE | 2018-06-03 16:38 | CON ---
DATE OF CONSULTATION: HISTORY OF PRESENT ILLNESS: This is a 68-year-old gentleman, who presents with some gangrenous infection in his right great toe. He has been seen by Dr. Underwood and prepared for a toe amputation; however, there is some concern about his vascular status. PAST MEDICAL HISTORY: Includes hypertension, atrial fibrillation, type 2 diabetes mellitus, end-stage renal disease. He also had history of aortic valve stenosis, undergoing aortic valve replacement this past Fall. PAST SURGICAL HISTORY: Also includes AV fistula. SOCIAL HISTORY: He is a nonsmoker. MEDICATIONS: Include; 1. P.r.n. insulin. 2. Coreg 12.5 b.i.d. 3. Lisinopril 5 daily. 4. Protonix 40 a day. 5. Zocor 40 a day. 6. Glipizide 5 a day. 7. Metoclopramide 5 t.i.d. 8. Prilosec 20 a day. ALLERGIES: CHEESE. PHYSICAL EXAMINATION: GENERAL: Alert and cooperative gentleman in no distress. Small stature. EXTREMITIES: Lower extremities, he has palpable femoral and popliteal pulses bilaterally with the left femoral stronger than the right. He has no palpable pedal pulses. He has ischemic changes in the right great toe with no peripheral edema. PLAN: Plan at this time is for angiography of the right lower extremity, possible intervention to improve blood flow prior to his amputation tomorrow and informed consent has been obtained. Job ID: [id number]
--- NOTE | 2018-06-03 18:05 | HP ---
HISTORY OF PRESENT ILLNESS: Jose Ramon Lackey is a 68-year-old male patient on end-stage renal disease, dialyzing using a right arm fistula, basilic vein transposition type that I have placed in July 2013. The patient is admitted this hospitalization because of problems with his right foot. He has essentially dry gangrene with perhaps some mild cellulitis of the great toe and erosion of the fourth toe and exposure to the phalanx. He is followed by Dr. Zaman, dialyzes Thursday, Thursday, and Thursday at [facility]. X-rays of the right foot on 06/03/2018 revealed absence of any bony erosions. Dr. Zaman is seeing him for management of his end-stage renal disease. ALLERGIES: CHEESE. TOBACCO: None. ALCOHOL: None. MEDICATIONS: 1. Omeprazole. 2. Reglan. 3. Glipizide. 4. Simvastatin. 5. Protonix. 6. Lisinopril. 7. Isosorbide. 8. Insulin. 9. Carvedilol. 10. Calcium acetate. 11. PhosLo. PAST SURGICAL HISTORY: In 2013, right arm basilic vein transposition fistula, aortic valve replacement in 2017. PAST MEDICAL HISTORY: End-stage renal disease; diabetes mellitus type 2; hypertension; end-stage renal disease, on maintenance dialysis Thursday, Thursday, and Thursday at [facility], followed by Dr. Zaman; GERD. PHYSICAL EXAMINATION: VITAL SIGNS: Height 5 feet 3 inches, weight 140 pounds, 24 BMI. HEAD, EARS, EYES, NOSE, AND THROAT: Unremarkable. LUNGS: Clear to auscultation. CARDIAC: Regular rate and rhythm without murmur or gallop. ABDOMEN: Soft and nontender. Palpable femoral pulses bilaterally, nonpalpable right popliteal pulse, nonpalpable pedal pulses dopplerable only, very weak dorsalis pedis posterior tibial pulses. Gangrene in right great toe with inflammatories and PAD changes of forefoot. Deformity of the fifth and fourth toes with pressure over the fourth toe, right, eroding with exposed bone. LABORATORY DATA: White count 6, hemoglobin 10.6. Sodium 135. BUN and creatinine changes with end-stage renal disease. ASSESSMENT AND PLAN: 1. Dry gangrene, right great toe with evidence of PAD by exam. I have discussed with Dr. Davon Brice. The patient will be seen to consider for arteriography. He will then undergo amputation of the right great toe and fourth toes, possible closure of the fourth toe, first toe healing by secondary intention. Risk of more possible amputation and failure to heal and BKA discussed. Await angiography and operative intervention. 2. Diabetes mellitus. 3. Hypertension. 4. End-stage renal disease, on maintenance dialysis. Job ID: [id number]
[2018-06-03] MEDS: Carvedilol 6.25 MG TAB PO SCH (20:50)
[2018-06-03] MEDS: Atorvastatin Calcium 20 MG TAB PO SCH (20:50)
[2018-06-03] MEDS: Heparin 5,000 UNITS/ML VIAL SC SCH (21:24)
[2018-06-03] MEDS ORDERED: traMADol HCl 50 MG TAB PO PRN (22:31)
--- NOTE | 2018-06-03 22:42 | HP ---
CHIEF COMPLAINT: Right foot pain. HISTORY OF PRESENT ILLNESS: The patient is a very pleasant 68-year-old male with history of diabetes, hypertension, and end-stage renal disease on dialysis, who presented to the hospital with complaints of right-sided great toe tingling sensation. The patient stated that he fell about 8 to 9 days ago and initially he did not think much of it, started having some tingling and pain around his right great toe, so when he was in dialysis, he showed it to the nurse, the nurse was concerned, so he asked him to come into the ER for further evaluation. The patient denies any fevers or chills, any nausea, vomiting, or diarrhea. PAST MEDICAL HISTORY: 1. History of gastritis, esophagitis. 2. End-stage renal disease, on dialysis. 3. Paroxysmal atrial fibrillation. 4. He had diabetes. 5. Hypertension. 6. Anemia of chronic disease. 7. GERD. PAST SURGICAL HISTORY: He is status post aortic valve replacement in 2017, status post AV fistula placement in the right upper extremity. ALLERGIES: HE IS ALLERGIC TO CHEESE. MEDICATIONS: 1. PhosLo 1334 mg p.o. t.i.d. 2. Coreg 12.5 b.i.d. 3. Glipizide 5 mg q.a.m. 4. Isosorbide 30 mg daily. 5. Lisinopril 5 mg daily. 6. Protonix 40 mg daily. 7. Zocor 40 mg at bedtime. FAMILY HISTORY: Positive for diabetes and hypertension. SOCIAL HISTORY: He denies any alcohol use, drug use, tobacco history. He is a full code. Lives with his son. REVIEW OF SYSTEMS: All negative except the ones mentioned above in the HPI. PHYSICAL EXAMINATION: VITAL SIGNS: Are as of the following; temperature of 98.8, respirations of 16, blood pressure of 103/57, and O2 saturations 91% on room air. GENERAL: He is awake, alert, and oriented x3. Does not appear in distress. CV: S1, S2 present. No murmurs, rubs, or gallops. LUNGS: Clear to auscultation. No rhonchi or wheezes noted. ABDOMEN: Soft and nontender. Bowel sounds are present x2. EXTREMITIES: No edema. Pedal pulses are present x2, faint but present. His right great toe has necrotic changes. He does have some onychomycosis fungus to his bilateral feet. There is no erythema around his right great toe that is noted. NEUROVASCULAR: No focal deficits noted. SKIN: No cuts, lesions, or bruises noted except for the right great toe necrosis. LABORATORY RESULTS: As of the following; WBCs of 6.0, hemoglobin of 10.6, hematocrit of 32.9, his platelets are 151. Chemistry; sodium of 135, potassium of 4.6, BUN of 34, creatinine 5.88, glucose of 236 initially. CRP is 9.35. The patient did have a foot x-ray, which did not indicate any osseous abnormalities. ASSESSMENT AND PLAN: The patient is a very pleasant 68-year-old male who comes into the hospital with right-sided toe pain. 1. Right-sided toe dry gangrene. There is no erythema. The patient is not having leukocytosis. He was given antibiotics in the ER. I will hold off on antibiotics. We will consult Surgery for further evaluation. 2. Diabetes. We will continue his Accu-Cheks before meals and at bedtime. We will hold the glipizide for now. We will put him just on sliding scale insulin. 3. Hypertension. We will continue his home medications. 4. Deep venous thrombosis prophylaxis. We will put the patient on subcu heparin. Job ID: [id number]
[2018-06-04] MEDS: Carvedilol 6.25 MG TAB PO SCH ×2 (06:39→21:54)
[2018-06-04] MEDS: Calcium Acetate 667 MG CAP PO SCH ×3 (07:33→18:16)
[2018-06-04] MEDS: Metoclopramide HCl 10 MG TAB PO SCH ×3 (07:33→21:54)
[2018-06-04] MEDS: Heparin 5,000 UNITS/ML VIAL SC SCH ×3 (07:33→21:57)
[2018-06-04] MEDS: Lisinopril 5 MG TAB PO SCH (08:00)
--- NOTE | 2018-06-04 09:05 | PRG ---
DATE OF SERVICE: 06/04/2018 SUBJECTIVE: A 68-year-old gentleman, being seen for end-stage renal disease. The patient denies nausea, vomiting, or chest pain. OBJECTIVE: CONSTITUTIONAL: The patient is awake and alert. VITAL SIGNS: Afebrile, pulse 87, breathing 16, blood pressure 132/88. GENERAL APPEARANCE AND MENTAL STATUS: Fair. HEAD/NECK: Normocephalic. Atraumatic. EYES: EOMI. No deformity. EARS: Clear. No ulcers. NOSE: Intact. No lesions. MOUTH: Clear. No discharge. THROAT: Clear. No exudate. LUNGS: Clear. No crackles. CARDIAC: S1, S2. No rub. ABDOMEN: Benign. Bowel sounds positive. GENITALIA/RECTUM: Osborne absent. BACK/EXTREMITIES: Edema 0+. NEUROLOGICAL: Alert and motor intact. SKIN: LYMPHATICS: LABORATORY DATA: Hemoglobin 8.8. Creatinine 1.4. Today's creatinine is pending. ASSESSMENT AND PLAN: 1.ESRD dialysis today 2. Hypertension, stable. 3. Anemia, stable. 4. Medications based on GFR appropriate. Job ID: [id number] [facility]
--- NOTE | 2018-06-04 09:15 | PRG ---
DATE OF SERVICE: 06/04/2018 SUBJECTIVE: A 68-year-old gentleman, being seen for end-stage kidney disease. The patient denies nausea, vomiting, or chest pain. OBJECTIVE: See above. CONSTITUTIONAL: Awake, alert, in no acute distress. VITAL SIGNS: Afebrile, pulse 75, breathing 16, blood pressure 116/65. GENERAL APPEARANCE AND MENTAL STATUS: Fair. HEAD/NECK: Normocephalic. Atraumatic. EYES: EOMI. No deformity. EARS: Clear. No ulcers. NOSE: Intact. No lesions. MOUTH: Clear. No discharge. THROAT: Clear. No exudate. LUNGS: Clear. No crackles. CARDIAC: S1, S2. No rub. ABDOMEN: Benign. Bowel sounds positive. GENITALIA/RECTUM: Osborne absent. BACK/EXTREMITIES: Edema 0+. NEUROLOGICAL: Alert and motor intact. SKIN: LYMPHATICS: LABORATORY DATA: Labs reviewed. ASSESSMENT AND PLAN: 1. Stage 6 chronic kidney disease, plan dialysis. 2. Hypertension, stable. 3. Anemia, stable. 4. Medication based on GFR appropriate. Job ID: [id number]
[2018-06-04] MEDS ORDERED: Iopamidol 370 76% 50 ML VIAL FS ONE (10:18)
[2018-06-04] MEDS ORDERED: Heparin 10,000 UNITS/1 ML VIAL ONE (10:53)
[2018-06-04] MEDS ORDERED: Protamine Sulfate 50 MG/5 ML VIAL ONE (11:00)
[2018-06-04] MEDS ORDERED: Clopidogrel Bisulfate 300 MG TAB ONE (11:23)
--- NOTE | 2018-06-04 12:45 | OP ---
DATE OF PROCEDURE: 06/04/2018 PREOPERATIVE DIAGNOSIS: Gangrene, right foot. PROCEDURES PERFORMED: Aortogram, bilateral lower extremity runoff with CERTIFIED OPHTHALMIC ASSISTANT, right SFA and popliteal. CONTRAST: 52. FLUOROSCOPY: 10.2 minutes. FINDINGS: The patient's aortoiliac segments were normal. The left SFA had some [id number]-ep-hyurarun irregularities in its mid to distal portion. The anterior tibial and posterior tibial were occluded, and the peroneal had a lesion just proximal to its origin of about 80% and it was the only vessel visualized. Right SFA had some less than 50% proximal stenosis. Serial 70% to 90% stenosis in the distal SFA and about an 80% popliteal stenosis. The peroneal had about 30% lesion with subtle vessel that went to the ankle. The anterior tibial was patent with an orifice lesion, but was the smaller of the two vessels and tapered off in the midcalf. Posterior tibial did not visualize. Prepping and draping the left groin, ultrasound-guided puncture of the left common femoral artery was carried out. Following a 5-Hungarian sheath insertion over guidewire, runoff of the left leg was obtained and then a Contra catheter was used to obtain aortoiliac runoff. The Contra catheter was then directed over the bifurcation with the assistance of an angled Glidewire and angled glide catheter and then runoff of the right leg. Following this, a Magic Torque wire could not be passed over the bifurcation and the Bentson wire was repassed. A 6-Hungarian destination sheath was placed over the bifurcation into the superficial femoral artery, and 5000 units and then 2000 units of heparin were given. The Magic Torque wire was then advanced through the stenosis, and a 3 x 150 mustang balloon was used to pre-dilate the lesions. A 4 x 150 Lutonix balloon was then inflated for 3 minutes and completion angiography obtained showing about 30% to 40% popliteal artery stenosis at the site of the 80% lesion, and then the SFA lesions distally were all about 30%. Job ID: [id number]
[2018-06-04] MEDS ORDERED: Fentanyl 100 MCG/2 ML VIAL ONE (13:31)
[2018-06-04] MEDS ORDERED: Promethazine HCl 25 MG/ML VIAL IM PRN (14:49)
[2018-06-04] MEDS ORDERED: Promethazine HCl 25 MG/ML VIAL SLOW IVP PRN (14:49)
[2018-06-04] MEDS ORDERED: Ondansetron HCl/PF 4 MG/2 ML Vial IVP PRN (14:49)
[2018-06-04] MEDS ORDERED: Acetaminophen 500 MG TAB PO PRN (14:51)
[2018-06-04] MEDS ORDERED: PHENYLEPHRINE-NS 100 MCG/ML 10 ML SYRINGE ONE (15:12)
[2018-06-04] MEDS ORDERED: PROPOFOL 200 MG/20 ML VIAL ONE (15:12)
[2018-06-04] MEDS ORDERED: Glycopyrrolate 0.2 MG/ML 5 ML SYRINGE ONE (15:12)
[2018-06-04] MEDS ORDERED: ePHEDrine 50 MG/ML VIAL ONE (15:12)
--- NOTE | 2018-06-04 15:34 | OP ---
DATE OF PROCEDURE: 06/04/2018 PREOPERATIVE DIAGNOSES: Peripheral arterial disease, arteriosclerotic occlusive disease, end-stage renal disease, gangrene right fifth toe, open wound right fourth toe laterally pressure from the adjacent fifth toe deformity. Dr. Davon Brice performed arteriography runoff this morning prior to this procedure, noting multisegmental right superficial femoral artery disease, undergoing percutaneous transluminal angioplasty noting anterior tibial 50% stenosis origin occluding mid leg peroneal 30% stenosis origin runoff to leg, posterior tibial occluded, left superficial femoral artery 50% lesions, no intervention runoff only via left peroneal with segmental disease. Left anterior tibial and posterior tibial artery is occluded. PROCEDURES PERFORMED: Amputation of right fifth toes and fourth toes through the proximal phalanx with primary closure. ANESTHESIA: General LMA. Note, there was some bleeding, but marginal. Overall prognosis is poor and the patient is risk for BKA. DESCRIPTION OF PROCEDURE: The patient was taken to the operating room, where under general LMA anesthesia, right lower extremity was prepared with ChloraPrep in routine fashion. Amputation of the right fifth and fourth toes performed through the proximal phalanx with a fishmouth incision, resecting the phalanx with rongeurs after transecting with a bone cutter. Connective tissue debrided. Wound was irrigated. Subcutaneous tissues were approximated with 4-0 Monocryl, skin with interrupted 4-0 Prolene. Antibiotic ointment, Xeroform, and sterile dressings were applied. Job ID: [id number]
[2018-06-04] MEDS ORDERED: Vancomycin HCl 1 GM in Premix Bag 1 BAG IVPB SCH (16:15)
--- NOTE | 2018-06-04 20:29 | PDOC.EVN ---
Event Note - Event Note Event Note: Tried to see pt couple times, pt was in OR. labs reviewed and adjustments made.
[2018-06-04] MEDS ORDERED: Cefepime 2 GM in Sodium Chloride 0.9% 100 ML IVPB SCH (21:00)
[2018-06-04] MEDS: Atorvastatin Calcium 20 MG TAB PO SCH (21:54)
[2018-06-04] MEDS: traMADol HCl 50 MG TAB PO PRN (21:55)
[2018-06-04] MEDS: Insulin Glargine 5 UNITS in Pre-Filled Syringe 1 EACH SC SCH (21:58)
[2018-06-05] MEDS: HumaLOG 300 UNITS/3 ML VIAL SC PRN ×2 (05:50→12:19)
[2018-06-05 07:29] LABS: #Eosinphils 0.2 thou/uL (0.0-0.7); #Lymphocytes 0.6 thou/uL (1.20-3.40); #Monocytes 0.4 thou/uL (0.11-0.59); #Neutrophils 2.7 thou/uL (1.40-6.50); %Basophils 0.4 % (0.0-1.0); %Lymphocytes 16.5 % (21.0-51.0); %Monocytes 10.5 % (0.0-10.0); %Neutrophils 68.7 % (42.0-75.0); Hemoglobin 9.7 g/dL (14.0-18.0); Mean Corpuscular HGB CONC 32.1 g/dL (32.0-36.0); Mean Corpuscular Hemoglobin 30.1 pg (27.0-31.0); Mean Platelet Volume 8.6 fL (7.4-10.4); Platelet Count 127 thou/uL (130-400); Red Blood Cell (RBC) Count 3.22 mill/uL (4.70-6.10); White Blood Cell (WBC) Count 3.9 thou/uL (4.8-10.8)
[2018-06-05 07:51] LABS: Anion Gap 15 mmol/L (10-20); BUN (Urea Nitrogen) 22 mg/dL (8.4-25.7); Calc. Creatinine Clearance 12 mL/min (70-130); Calcium 8.5 mg/dL (7.8-10.44); Carbon Dioxide 29 mmol/L (23-31); Chloride 96 mmol/L (98-107); Estimated GFR-MDRD 11; Glucose 191 mg/dL (80-115); Potassium 4.9 mmol/L (3.5-5.1); Sodium 135 mmol/L (136-145)
[2018-06-05] MEDS: Calcium Acetate 667 MG CAP PO SCH ×3 (08:19→17:23)
[2018-06-05] MEDS: Clopidogrel Bisulfate 75 MG TAB PO SCH (08:19)
[2018-06-05] MEDS: Metoclopramide HCl 10 MG TAB PO SCH ×3 (08:20→19:57)
[2018-06-05] MEDS: Lisinopril 5 MG TAB PO SCH (08:20)
[2018-06-05] MEDS: Aspirin Chewable 81 MG TAB PO SCH (08:21)
[2018-06-05] MEDS: Heparin 5,000 UNITS/ML VIAL SC SCH ×3 (08:21→19:58)
[2018-06-05] MEDS: Carvedilol 6.25 MG TAB PO SCH ×2 (08:21→19:56)
--- NOTE | 2018-06-05 13:05 | PRG ---
DATE OF SERVICE: 06/05/2018 SUBJECTIVE: A 68-year-old gentleman is being seen for end-stage renal disease. The patient denies any nausea, vomiting, or chest pain. OBJECTIVE: GENERAL: The patient is awake and alert. VITAL SIGNS: Afebrile, pulse 74, breathing 16, blood pressure 119/77. GENERAL APPEARANCE AND MENTAL STATUS: Fair. HEAD/NECK: Normocephalic and atraumatic. EYES: EOMI. No deformity. EARS: Clear. No ulcers. NOSE: Intact. No lesions. MOUTH: Clear. No discharge. THROAT: Clear. No exudate. LUNGS: Clear. No crackles. CARDIAC: S1, S2. No rub. ABDOMEN: Benign. Bowel sounds positive. GENITALIA/RECTUM: Osborne absent. BACK/EXTREMITIES: Edema 0+. NEUROLOGICAL: Alert and motor intact. LABORATORY DATA: Labs reviewed. ASSESSMENT AND PLAN: 1. Stage 6 chronic kidney disease, stable. 2. Hypertension, stable. 3. Anemia, stable. 4. Medication based on GFR appropriate. Job ID: [id number]
[2018-06-05] MEDS: Insulin Glargine 5 UNITS in Pre-Filled Syringe 1 EACH SC SCH (19:56)
[2018-06-05] MEDS: Atorvastatin Calcium 20 MG TAB PO SCH (19:57)
[2018-06-05] MEDS: traMADol HCl 50 MG TAB PO PRN (23:24)
--- NOTE | 2018-06-06 06:48 | PDOC.PN ---
- Subjective Encounter Start Date: 06/05/18 Encounter Start Time: 14:44 Subjective: pt up in bed no complains - Objective Vital Signs & Weight: Vital Signs (12 hours) Temp Pulse Resp BP BP Pulse Ox 06/05/18 20:00 98.2 F 64 18 118/64 92 L 06/05/18 19:56 119/71 Weight Weight 140 lb 7 oz I&O: 06/04/18 06/05/18 06/06/18 06:59 06:59 06:59 Intake Total 971 862 2554 Balance 832 541 8266 Result Diagrams: 06/05/18 06:54 06/05/18 06:54 Additional Labs: Accuchecks 06/06/18 06/05/18 06/05/18 04:54 19:35 16:24 POC Glucose 101 192 H 114 H 06/05/18 11:10 POC Glucose 166 H Phys Exam - Physical Examination Neck: no nodes, no JVD, supple, full ROM Respiratory: no wheezing, no rales, no rhonchi, wheezing present, clear to auscultation bilateral Cardiovascular: RRR, no significant murmur, no rub, gallop, irregular Gastrointestinal: soft, non-tender, no distention, positive bowel sounds dressing to right foot Dx/Plan (1) Gangrene of toe of right foot Code(s): I96 - GANGRENE, NOT ELSEWHERE CLASSIFIED Status: Acute (2) DM type 2 (diabetes mellitus, type 2) Status: Chronic Comment: (3) HTN (hypertension) Code(s): I10 - ESSENTIAL (PRIMARY) HYPERTENSION Status: Chronic (4) HLD (hyperlipidemia) Code(s): E78.5 - HYPERLIPIDEMIA, UNSPECIFIED Status: Chronic (5) ESRD (end stage renal disease) on dialysis Code(s): N18.6 - END STAGE RENAL DISEASE; Z99.2 - DEPENDENCE ON RENAL DIALYSIS Status: Chronic - Plan pt s/p amputation of first and fifth toe amputation -: will consult PT -: pt also had aortogram and had angioplasty -: continue asa/statin/plavix * . Review of Systems - Review of Systems Respiratory: negative: Cough, Dry, Shortness of Breath, Hemoptysis, SOB with Excertion, Pleuritic Pain, Sputum, Wheezing Cardiovascular: negative: chest pain, palpitations, orthopnea, paroxysmal nocturnal dyspnea, edema, light headedness, other Gastrointestinal: negative: Nausea, Vomiting, Abdominal Pain, Diarrhea, Constipation, Melena, Hematochezia, Other - Medications/Allergies Allergies/Adverse Reactions: Allergies Allergy/AdvReac Type Severity Reaction Status Date / Time cheese Allergy Verified 02/11/18 08:26 Medications: Current Medications Acetaminophen (Tylenol) 1,000 mg PO Q6H PRN PRN Reason: Moderate to Severe Pain (6-10) Last Admin: 06/04/18 21:55 Dose: 1,000 mg Aspirin (Aspirin Chewable) 81 mg PO DAILY [facility] Last Admin: 06/05/18 08:21 Dose: 81 mg Atorvastatin Calcium (Lipitor) [address] [facility] Last Admin: 06/05/18 19:57 Dose: 20 mg Calcium Acetate (Phoslo) 1,334 mg PO TID-[facility] Last Admin: 06/05/18 17:23 Dose: 1,334 mg Carvedilol (Coreg) 12.5 mg PO BID [facility] Last Admin: 06/05/18 19:56 Dose: 12.5 mg Clopidogrel Bisulfate (Plavix) 75 mg PO DAILY [facility] Last Admin: 06/05/18 08:19 Dose: 75 mg Dextrose/Water (Dextrose 50%) 25 gm SLOW IVP PRN PRN PRN Reason: Hypoglycemia Glucagon (Glucagon) 1 mg IM PRN PRN PRN Reason: Hypoglycemia Heparin Sodium (Porcine) (Heparin) 5,000 units SC TID [facility] Last Admin: 06/05/18 19:58 Dose: 5,000 units Dextrose/Water (D5w) 1,000 mls @ 0 mls/hr IV .Q0M PRN PRN Reason: Hypoglycemia Insulin Glargine 5 units/ (Miscellaneous Medication) 0.05 mls @ 0 mls/hr SC [facility] Last Admin: 06/05/18 19:56 Dose: 0.05 mls Insulin Human Lispro (Humalog) 0 units SC .MILD SLIDING SCALE PRN PRN Reason: Mild Correctional Scale Last Admin: 06/05/18 12:19 Dose: 2 unit Lisinopril (Zestril) 5 mg PO DAILY [facility] Last Admin: 06/05/18 08:20 Dose: 5 mg Metoclopramide HCl (Reglan) 5 mg PO TID [facility] Last Admin: 06/05/18 19:57 Dose: 5 mg Pantoprazole Sodium (Protonix) 40 mg PO AC PRN PRN Reason: Nausea Tramadol HCl (Ultram) 100 mg PO Q6H PRN PRN Reason: Pain 1-5 Last Admin: 06/05/18 23:24 Dose: 100 mg
[2018-06-06] MEDS: Lisinopril 5 MG TAB PO SCH (08:50)
[2018-06-06] MEDS: Calcium Acetate 667 MG CAP PO SCH ×3 (08:50→16:59)
[2018-06-06] MEDS: Clopidogrel Bisulfate 75 MG TAB PO SCH (08:50)
[2018-06-06] MEDS: Metoclopramide HCl 10 MG TAB PO SCH ×3 (08:51→19:50)
[2018-06-06] MEDS: Carvedilol 6.25 MG TAB PO SCH ×2 (08:51→19:50)
[2018-06-06] MEDS: Aspirin Chewable 81 MG TAB PO SCH (08:51)
[2018-06-06] MEDS: Heparin 5,000 UNITS/ML VIAL SC SCH ×3 (08:52→19:52)
[2018-06-06] MEDS: HumaLOG 300 UNITS/3 ML VIAL SC PRN (11:55)
--- NOTE | 2018-06-06 13:18 | PRG ---
DATE OF SERVICE: 06/06/2018 SUBJECTIVE: A 68-year-old gentleman being seen for end-stage renal disease. The patient denies nausea, vomiting, or chest pain. OBJECTIVE: See above. Awake, alert, in no acute distress. VITAL SIGNS: Afebrile, pulse 72, breathing 16, and blood pressure 113/64. GENERAL APPEARANCE AND MENTAL STATUS: Fair. HEAD/NECK: Normocephalic. Atraumatic. EYES: EOMI. No deformity. EARS: Clear. No ulcers. NOSE: Intact. No lesions. MOUTH: Clear. No discharge. THROAT: Clear. No exudate. LUNGS: Clear. No crackles. CARDIAC: S1, S2. No rub. ABDOMEN: Benign. Bowel sounds positive. GENITALIA/RECTUM: Osborne absent. BACK/EXTREMITIES: Edema 0+. NEUROLOGICAL: Alert and motor intact. SKIN: LYMPHATICS: LABORATORY DATA: Labs show hemoglobin of 9.7 and creatinine 5.2. ASSESSMENT AND PLAN: 1. Stage 6 chronic kidney disease, on hemodialysis. 2. Hypertension, stable. 3. Anemia, stable. 4. Medication based on GFR appropriate. Job ID: [id number]
[2018-06-06 14:40] LABS: Anion Gap 19 mmol/L (10-20); BUN (Urea Nitrogen) 40 mg/dL (8.4-25.7); Calc. Creatinine Clearance 8 mL/min (70-130); Calcium 8.5 mg/dL (7.8-10.44); Carbon Dioxide 26 mmol/L (23-31); Chloride 95 mmol/L (98-107); Estimated GFR-MDRD 7; Glucose 97 mg/dL (80-115); Potassium 5.1 mmol/L (3.5-5.1); Sodium 135 mmol/L (136-145)
--- NOTE | 2018-06-06 18:37 | PDOC.PN ---
- Subjective Encounter Start Date: 06/06/18 Encounter Start Time: 13:00 Subjective: pt up in bed no complains - Objective Vital Signs & Weight: Vital Signs (12 hours) Temp Pulse Resp BP BP Pulse Ox 06/06/18 08:51 113/64 06/06/18 08:50 62 113/64 06/06/18 08:00 97.7 F 62 06/06/18 07:39 97.7 F 62 18 113/64 92 L Weight Weight 140 lb 7 oz I&O: 06/05/18 06/06/18 06/07/18 06:59 06:59 06:59 Intake Total 470 1040 480 Balance 470 1040 480 Result Diagrams: 06/05/18 06:54 06/06/18 13:49 Additional Labs: Accuchecks 06/06/18 06/06/18 06/06/18 16:57 11:47 04:54 POC Glucose 97 154 H 101 06/05/18 19:35 POC Glucose 192 H Phys Exam - Physical Examination Neck: no nodes, no JVD, supple, full ROM Respiratory: no wheezing, no rales, no rhonchi, wheezing present, clear to auscultation bilateral Cardiovascular: RRR, no significant murmur, no rub, gallop, irregular Gastrointestinal: soft, non-tender, no distention, positive bowel sounds right foot dressing Dx/Plan (1) Gangrene of toe of right foot Code(s): I96 - GANGRENE, NOT ELSEWHERE CLASSIFIED Status: Acute (2) DM type 2 (diabetes mellitus, type 2) Status: Chronic Comment: (3) HTN (hypertension) Code(s): I10 - ESSENTIAL (PRIMARY) HYPERTENSION Status: Chronic (4) HLD (hyperlipidemia) Code(s): E78.5 - HYPERLIPIDEMIA, UNSPECIFIED Status: Chronic (5) ESRD (end stage renal disease) on dialysis Code(s): N18.6 - END STAGE RENAL DISEASE; Z99.2 - DEPENDENCE ON RENAL DIALYSIS Status: Chronic - Plan s/p amputation of great toe and 4,5 toe -: esrd on dialysis, PT ordered -: continue sc insulin -: discharge home when ok with surgery * . Review of Systems - Review of Systems Cardiovascular: negative: chest pain, palpitations, orthopnea, paroxysmal nocturnal dyspnea, edema, light headedness, other Gastrointestinal: negative: Nausea, Vomiting, Abdominal Pain, Diarrhea, Constipation, Melena, Hematochezia, Other Genitourinary: negative: Dysuria, Frequency, Incontinence, Hematuria, Retention , Other - Medications/Allergies Allergies/Adverse Reactions: Allergies Allergy/AdvReac Type Severity Reaction Status Date / Time cheese Allergy Verified 02/11/18 08:26 Medications: Current Medications Acetaminophen (Tylenol) 1,000 mg PO Q6H PRN PRN Reason: Moderate to Severe Pain (6-10) Last Admin: 06/04/18 21:55 Dose: 1,000 mg Aspirin (Aspirin Chewable) 81 mg PO DAILY [facility] Last Admin: 06/06/18 08:51 Dose: 81 mg Atorvastatin Calcium (Lipitor) 20 mg PO [facility] Last Admin: 06/05/18 19:57 Dose: 20 mg Calcium Acetate (Phoslo) 1,334 mg PO TID-[facility] Last Admin: 06/06/18 16:59 Dose: 1,334 mg Carvedilol (Coreg) 12.5 mg PO BID [facility] Last Admin: 06/06/18 08:51 Dose: 12.5 mg Clopidogrel Bisulfate (Plavix) 75 mg PO DAILY [facility] Last Admin: 06/06/18 08:50 Dose: 75 mg Dextrose/Water (Dextrose 50%) 25 gm SLOW IVP PRN PRN PRN Reason: Hypoglycemia Glucagon (Glucagon) 1 mg IM PRN PRN PRN Reason: Hypoglycemia Heparin Sodium (Porcine) (Heparin) 5,000 units SC TID [facility] Last Admin: 06/06/18 15:19 Dose: 5,000 units Dextrose/Water (D5w) 1,000 mls @ 0 mls/hr IV .Q0M PRN PRN Reason: Hypoglycemia Insulin Glargine 5 units/ (Miscellaneous Medication) 0.05 mls @ 0 mls/hr SC [facility] Last Admin: 06/05/18 19:56 Dose: 0.05 mls Insulin Human Lispro (Humalog) 0 units SC .MILD SLIDING SCALE PRN PRN Reason: Mild Correctional Scale Last Admin: 06/06/18 11:55 Dose: 2 unit Lisinopril (Zestril) 5 mg PO DAILY [facility] Last Admin: 06/06/18 08:50 Dose: 5 mg Metoclopramide HCl (Reglan) 5 mg PO TID [facility] Last Admin: 06/06/18 15:18 Dose: 5 mg Pantoprazole Sodium (Protonix) 40 mg PO AC PRN PRN Reason: Nausea Tramadol HCl (Ultram) 100 mg PO Q6H PRN PRN Reason: Pain 1-5 Last Admin: 06/05/18 23:24 Dose: 100 mg
[2018-06-06] MEDS: Atorvastatin Calcium 20 MG TAB PO SCH (19:50)
[2018-06-06] MEDS: Insulin Glargine 5 UNITS in Pre-Filled Syringe 1 EACH SC SCH ×2 (19:50→19:51)
--- NOTE | 2018-06-07 10:16 | PRG ---
DATE OF SERVICE: 06/07/2018 SUBJECTIVE: Mr. Lackey is doing well today. Dressings removed from his right foot. The patient's wounds look good; however, there are some blackened skin edges. The patient had PAD with interventional percutaneous transluminal angioplasty superficial femoral artery, right leg. He has limited runoff. He probably has small vessel disease. He has ischemic changes in his forefoot indicative of PAD, severe small vessel disease and these wounds may not heal. He may eventually need a BKA. There is no evidence of infection. At this point, I would recommend discharge home with followup in my office in 2 weeks. We will make determination then, as to whether he might need something more proximal surgically. Most likely, he will need a BKA in the future due to advance PAD. Intravenous antibiotics are not necessary as this is a noninfectious problem. This is a problem of PAD. He should be sent home on Plavix and aspirin, after [employer] [facility] is recommended by Dr. Brice. Job ID: [id number]
--- NOTE | 2018-06-07 10:28 | PDOC.PN ---
- Subjective Encounter Start Date: 06/07/18 Encounter Start Time: 12:20 Subjective: Patient doing well. No complaints. Dressing on right postop wound. -: Seen in dialysis. - Objective MAR Reviewed: Yes Vital Signs & Weight: Vital Signs (12 hours) Temp Pulse Resp BP Pulse Ox 06/07/18 08:00 92 L 06/07/18 07:20 97.7 F 72 18 162/61 H 92 L Weight Weight 140 lb 7 oz I&O: 06/06/18 06/07/18 06/08/18 06:59 06:59 06:59 Intake Total 1040 960 Output Total 0 Balance 1040 960 Result Diagrams: 06/05/18 06:54 06/06/18 13:49 Additional Labs: Accuchecks 06/07/18 06/06/18 06/06/18 04:21 19:43 16:57 POC Glucose 87 144 H 97 06/06/18 11:47 POC Glucose 154 H Phys Exam - Physical Examination Constitutional: NAD HEENT: moist MMs Respiratory: no wheezing, no rales, no rhonchi Cardiovascular: RRR, no significant murmur Gastrointestinal: soft, positive bowel sounds Musculoskeletal: no edema right foot with dressing c/d/i Neurological: moves all 4 limbs Psychiatric: normal affect, A&O x 3 Dx/Plan (1) Gangrene of toe of right foot Code(s): I96 - GANGRENE, NOT ELSEWHERE CLASSIFIED Status: Acute Comment: s/ p amputation, may need BKA, d/c home today and f/u with Dr. Underwood in clinic to reassess (2) PVD (peripheral vascular disease) Code(s): I73.9 - PERIPHERAL VASCULAR DISEASE, UNSPECIFIED Status: Chronic (3) DM type 2 (diabetes mellitus, type 2) Status: Chronic Comment: (4) ESRD (end stage renal disease) on dialysis Code(s): N18.6 - END STAGE RENAL DISEASE; Z99.2 - DEPENDENCE ON RENAL DIALYSIS Status: Chronic (5) HLD (hyperlipidemia) Code(s): E78.5 - HYPERLIPIDEMIA, UNSPECIFIED Status: Chronic (6) HTN (hypertension) Code(s): I10 - ESSENTIAL (PRIMARY) HYPERTENSION Status: Chronic - Plan cont current plan of care d/c home today * . - Discharge Day Encounter end time: 12:30
--- NOTE | 2018-06-07 10:48 | PRG ---
DATE OF SERVICE: 06/07/2018 SUBJECTIVE: Patient was seen and examined at bedside and overnight events noted. Patient denies any shortness of breath or chest pain or palpitation. No history of nausea or vomiting or diarrhea or fever or chills or cramps. OBJECTIVE: GENERAL: This is a well-developed male, in no acute distress. VITAL SIGNS: Temperature 97.8. Heart rate 65. Respiratory rate 18. Blood pressure 131/65. HEENT: Atraumatic, normocephalic. Oral mucosa is moist NECK: Supple. CARDIOVASCULAR: S1, S2 heard. Rate and rhythm regular. RESPIRATORY: Clear to auscultation. GASTROINTESTINAL: Abdomen is soft. MUSCULOSKELETAL: No tenderness. No edema. DERMATOLOGIC: No skin rash. NEUROLOGIC: Alert and awake and oriented X3. No focal neurologic deficits. Moving all the extremities. PSYCHIATRIC: Mood and affect normal. LABORATORY DATA: No labs done today. ASSESSMENT AND PLAN: 1. End-stage renal disease, continue dialysis Thursday, Thursday, and Thursday. The patient was seen during dialysis, tolerating well. 2. Hypertension, stable. 3. Anemia, we will monitor hemoglobin. 4. Edema, we will remove fluid with dialysis as tolerated. 5. Continue dialysis as tolerated. Job ID: [id number]
[2018-06-07] MEDS: Calcium Acetate 667 MG CAP PO SCH ×2 (12:20→12:23)
[2018-06-07] MEDS: Carvedilol 6.25 MG TAB PO SCH (12:21)
[2018-06-07] MEDS: Lisinopril 5 MG TAB PO SCH (12:22)
[2018-06-07] MEDS: Aspirin Chewable 81 MG TAB PO SCH (12:22)
[2018-06-07] MEDS: Heparin 5,000 UNITS/ML VIAL SC SCH ×2 (12:23→16:34)
[2018-06-07] MEDS: Clopidogrel Bisulfate 75 MG TAB PO SCH (12:23)
[2018-06-07] MEDS: Metoclopramide HCl 10 MG TAB PO SCH ×2 (12:24→16:34)
[2018-06-07 16:03] VITALS: BP 143/66; TEMP 98.3
--- NOTE | 2018-06-07 23:23 | DIS ---
DATE OF ADMISSION: 06/03/2018 DATE OF DISCHARGE: 06/07/2018 PRIMARY CARE PHYSICIAN: Alfie Smith MD REASON FOR ADMISSION: Right foot pain and wound. DIAGNOSES AT DISCHARGE: 1. Dry gangrene of the right foot and right toe, status post toe amputation. 2. Peripheral vascular disease. 3. Diabetes mellitus type 2. 4. End-stage renal disease, on dialysis. 5. Hyperlipidemia. 6. Hypertension. PROCEDURES: 1. X-ray of the right foot showing no evidence of osseous abnormality. 2. Aortogram with bilateral extremity runoff along with a percutaneous angioplasty of the right superficial femoral artery and right popliteal artery stenosis. 3. Amputation of the right fifth toe and fourth toe to the proximal phalanx with primary closure. CONSULTATIONS: 1. Nephrology, Dr. Zaman. 2. General Surgery, Dr. Underwood. 3. Vascular Surgery, Dr. Brice. SUMMARY OF HOSPITAL COURSE: This is a 68-year-old male with a known history of diabetes, peripheral vascular disease; end-stage renal disease, on dialysis, who came in after he fell and hurt his toe about 8 to 9 days ago and he started having tingling and pain, was found to have some gangrene in the area during dialysis, so he was sent to the emergency room. Dr. Underwood was consulted and he consulted Dr. Brice to manage peripheral vascular disease. Dr. Brice did do some angioplasty in the leg to try to improve blood flow and Dr. Underwood did toe amputations as above. The patient did well postoperatively. He did have some duskiness around the amputation site and so, there was a concern that he may end up needing a [id number] amputation. Dr. Underwood will follow up with him in clinic to see how well this heals. Dr. Zaman was consulted for management of dialysis during the hospitalization. DISCHARGE MANAGEMENT: Discharged to home. ACTIVITY: As tolerated. DIET: Diabetic renal diet. THERAPY INSTRUCTIONS: Wound care at home. FOLLOWUP: Follow up with Dr. Underwood in [address] Brice in 3 to 4 weeks and continue dialysis with Dr. Zaman. DISCHARGE MEDICATIONS: 1. Clopidogrel 75 mg daily, 30 tablets dispensed. 2. Continue PhosLo 1334 mg three times a day. 3. Carvedilol 12.5 mg twice a day. 4. Lisinopril 5 mg daily. 5. Metoclopramide 5 mg three times a day. 6. Omeprazole 40 mg daily. 7. Zocor 40 mg at night. 8. Glipizide 5 mg each morning. 9. Insulin sliding scale as needed. 10. Isosorbide mononitrate 30 mg each morning. Job ID: [id number]
== END 2018-06-07 16:59 | disposition home or self-care (01) | DRG 252 ==
LOC: ERS 23:01 → T4-B 06-03 03:03
PROVIDERS: ADMIT Hospitalist; ATTEND Hospitalist
PROC: 0Y6V0Z1 Detachment at Right 4th Toe, High, Open Approach (ICD-10-PCS; principal; 2018-06-04)
PROC: 047K3Z1 Dilation of Right Femoral Artery using Drug-Coated Balloon, Percutaneous Approach (ICD-10-PCS; 2018-06-04)
PROC: 0Y6X0Z1 Detachment at Right 5th Toe, High, Open Approach (ICD-10-PCS; 2018-06-04)
PROC: 047M3Z1 Dilation of Right Popliteal Artery using Drug-Coated Balloon, Percutaneous Approach (ICD-10-PCS; 2018-06-04)
PROC: 5A1D70Z Performance of Urinary Filtration, Intermittent, Less than 6 Hours Per Day (ICD-10-PCS; 2018-06-04)
PROC: B41D1ZZ Fluoroscopy of Aorta and Bilateral Lower Extremity Arteries using Low Osmolar Contrast (ICD-10-PCS; 2018-06-04)
PROC: 3E05317 Introduction of Other Thrombolytic into Peripheral Artery, Percutaneous Approach (ICD-10-PCS; 2018-06-04)
PROC: 5A1D70Z Performance of Urinary Filtration, Intermittent, Less than 6 Hours Per Day (ICD-10-PCS; 2018-06-07)
DX: E11.52 Type 2 diabetes mellitus with diabetic peripheral angiopathy with gangrene (principal); N18.6 End stage renal disease; I96 Gangrene, not elsewhere classified; I12.0 Hypertensive chronic kidney disease with stage 5 chronic kidney disease or end stage renal disease; E11.22 Type 2 diabetes mellitus with diabetic chronic kidney disease; Z99.2 Dependence on renal dialysis; I48.0 Paroxysmal atrial fibrillation; D63.1 Anemia in chronic kidney disease; K21.9 Gastro-esophageal reflux disease without esophagitis; E78.5 Hyperlipidemia, unspecified; Z91.018 Allergy to other foods; Z79.4 Long term (current) use of insulin; Z79.899 Other long term (current) drug therapy; Z95.2 Presence of prosthetic heart valve
CPT/HCPCS: 36415; 36416; 37224; 80048; 80053; 82553; 83605; 84484; 85025; 85347; 85652; 86140; 87040; 88305; 88311; 90471; 90670; 90935; 93005; 96365; 96375; C1725; C1769; C1887; C2623; G0009; G0257; J0692; J1644; J1825; J2543; J2704; J2720; J3010; J3370; J3490; J7050; J8597; Q9967

== ENCOUNTER 2018-06-09 10:02 | Inpatient (IN) | payer MEDICARE ==
[2018-06-09 11:43] LABS: #Eosinphils 0.1 thou/uL (0.0-0.7); #Lymphocytes 0.6 thou/uL (1.20-3.40); #Monocytes 0.6 thou/uL (0.11-0.59); #Neutrophils 7.2 thou/uL (1.40-6.50); %Basophils 0.1 % (0.0-1.0); %Eosinophils 0.6 % (0.0-10.0); %Lymphocytes 7.1 % (21.0-51.0); %Monocytes 6.9 % (0.0-10.0); %Neutrophils 85.3 % (42.0-75.0); Hemoglobin 9.4 g/dL (14.0-18.0); Mean Corpuscular HGB CONC 30.7 g/dL (32.0-36.0); Mean Corpuscular Hemoglobin 29.1 pg (27.0-31.0); Mean Corpuscular Volume 94.9 fL (78.0-98.0); Platelet Count 166 thou/uL (130-400); RBC Distribution Width 14.2 % (11.5-14.5); Red Blood Cell (RBC) Count 3.24 mill/uL (4.70-6.10); White Blood Cell (WBC) Count 8.4 thou/uL (4.8-10.8)
[2018-06-09 12:01] LABS: ALT (SGPT) 11 U/L (8-55); AST (SGOT) 19 U/L (5-34); Albumin 3.9 g/dL (3.4-4.8); Alkaline Phosphatase 100 U/L (40-150); Anion Gap 17 mmol/L (10-20); BUN (Urea Nitrogen) 20 mg/dL (8.4-25.7); Bilirubin, Total 0.5 mg/dL (0.2-1.2); Calc. Creatinine Clearance 0 mL/min (70-130); Calcium 9.9 mg/dL (7.8-10.44); Carbon Dioxide 25 mmol/L (23-31); Chloride 98 mmol/L (98-107); Estimated GFR-MDRD 18; Globulin 3.8 g/dL (2.4-3.5); Glucose 156 mg/dL (80-115); Lipase 15 U/L (8-78); Potassium 3.9 mmol/L (3.5-5.1); Protein, Total 7.7 g/dL (5.8-8.1); Sodium 136 mmol/L (136-145)
[2018-06-09] MEDS ORDERED: Pantoprazole 40 MG VIAL ONE (12:26)
--- NOTE | 2018-06-09 13:02 | RAD ---
RADIOGRAPH RIGHT FOOT THREE VIEWS: 06/09/2018 12:10 p.m. HISTORY: A 68-year-old male with erythema of the right foot. COMPARISON: 06/03/2018 FINDINGS: There are amputations at the proximal metaphysis of the 1st proximal phalanx and the proximal metaphy sis of the 4th proximal phalanx, both new since the prior study. There is a greater degree of soft t issue swelling in the forefoot on the current study, compared to the previous. There is diffuse oste openia. No destructive or permeative lesion, osteolytic or osteoblastic lesion, or periostitis is vi sualized. No high-grade DJD identified. IMPRESSION: 1. Interval amputations at the proximal metaphyses of the 1st and 4th proximal phalanges, since the prior study. 2. A greater degree of soft tissue edema in the forefoot now than before. POS: TPC
[2018-06-09 13:16] LABS: CKMB 1.7 ng/mL (0-6.6)
[2018-06-09] MEDS ORDERED: Dextrose 5% in Water 1,000 ML IV PRN (14:12)
[2018-06-09] MEDS ORDERED: HumaLOG 300 UNITS/3 ML VIAL SC PRN (14:12)
[2018-06-09] MEDS ORDERED: Ondansetron ODT 4 MG TAB PO PRN (14:12)
[2018-06-09] MEDS ORDERED: Dextrose 50% Abboject 50 ML SYRINGE SLOW IVP PRN (14:12)
[2018-06-09] MEDS ORDERED: Acetaminophen 325 MG TAB PO PRN (14:12)
[2018-06-09] MEDS ORDERED: Zolpidem Tartrate 5 MG TAB PO PRN (14:12)
[2018-06-09] MEDS ORDERED: Piperacillin/Tazobactam 3.375 GM VIAL ONE (14:16)
[2018-06-09] MEDS ORDERED: cefTRIAXone\\ROCEPHIN 1 GM in Sodium Chloride 0.9% 100 ML IVPB SCH (15:00)
--- NOTE | 2018-06-09 15:10 | HP ---
PRIMARY CARE PROVIDER: Dr. Fu. CAD DETAILER: Dr. Zaman. Recent surgery, Dr. Underwood. HISTORY OF PRESENT ILLNESS: The patient was sent to [facility] [place] [facility] from hemodialysis after vomiting some "dark stuff," was not described as coffee-ground or radha blood. He has had no abdominal pain. No diarrhea. No melena. The patient was noted by the emergency room doctor to have some erythema proximal to amputations on the right foot done on 06/04/2018. The patient was discharged from the hospital on 06/07/2018. His medicines are not confirmed at the present time. At the time of discharge, he was on Plavix 75 mg a day, PhosLo 1334 three times a day, Coreg 12.5 mg twice a day, lisinopril 5 mg a day, Reglan 5 mg three times a day, omeprazole 40 mg daily, Zocor 40 mg at night, glipizide 5 mg a day, sliding scale insulin, and Imdur 30 mg a day. ALLERGIES: NO KNOWN DRUG ALLERGIES. PAST MEDICAL HISTORY: End-stage renal disease, on hemodialysis; diabetes mellitus, type 2; paroxysmal atrial fibrillation; hypertension; anemia of chronic disease; history of gastroesophageal reflux disease; status post aortic valve replacement in 2017; status post AV fistula placement in the right upper arm. FAMILY HISTORY: Positive for diabetes and hypertension. SOCIAL HISTORY: Full code status. His son is next of kin. Denies alcohol, drugs, or tobacco. REVIEW OF SYSTEMS: GENERAL: No fever or chills. Some mild lightheadedness with his nausea. EYES: He has some blurred vision at times. No double vision or flashing lights. EAR, NOSE, AND THROAT: No ear pain or drainage. No nasal bleeding. No trouble swallowing. CARDIAC: No chest pain, orthopnea, or paroxysmal nocturnal dyspnea. RESPIRATION: No cough, wheezing, or asthma. GASTROINTESTINAL: See present illness. GENITOURINARY: Scant urine. No blood. SKIN: He has some erythema and blisters on the dorsum of his right foot. He states it is not painful. HEME/LYMPH: No tender or swollen lymph nodes in his axilla, inguinal, or cervical area. NEUROLOGICAL: No strokes, seizures, or focal weakness. MUSCULOSKELETAL: No pain or swelling in his arms or legs. PHYSICAL EXAMINATION: GENERAL: He is alert, Bulgarian speaking only. History obtained through family, who do an excellent job of interpreting. VITAL SIGNS: Blood pressure 165/67, pulse 74, respirations 22, temperature 98.1, pulse ox 95 +/- on room air. HEAD, EYES, EARS, NOSE, AND THROAT: Revealed pupils are equal, round, and reactive to light. Extraocular movements are intact. Sclerae are white. Tympanic membranes clear. Nose is clear. Oral mucous membranes are wet. NECK: No jugular venous distention, adenopathy, or thyromegaly. CHEST: Clear to auscultation and percussion. HEART: Regular rate and rhythm, 3/6 harsh left-sided murmur. ABDOMEN: Soft. Bowel sounds are normal. No hepatosplenomegaly. No mass. No rebound. No bruits. EXTREMITIES: No cyanosis, clubbing, or edema. He is missing the 1st and 4th digits on the right foot. There are still stitches in same. There is some area of what appears to be necrosis around the right great toe stitches. He has erythema with bulla on the dorsum of the right foot. PULSES: Carotid, radial, and femoral pulses palpable. Pedal pulses were difficult to discern. SKIN: See the aforementioned changes mentioned under musculoskeletal otherwise, warm and dry. HEME/LYMPH: No tender or swollen nodes axilla inguinal cervical area. NEUROLOGICAL: Cranial nerves 2 through 12 are intact. Moves all extremities. Marked decreased sensation and the deep tendon reflexes in the lower extremities. IMAGING STUDIES: No chest x-ray available. No EKG available. LABORATORY DATA: Comp metabolic profile. Lytes balanced. Creatinine 3.41, BUN 20. Liver function tests normal. Troponin 0.047. C-reactive protein elevated at 20. CBC; white count 8.4 with a minimal neutrophilia, platelet count 166,000, and hemoglobin is 9.4. ADMITTING DIAGNOSES: 1. Nausea and vomiting. 2. Cellulitis of dorsum of right foot. 3. Status post amputation of 1st and 4th toes of the right foot. 4. Diabetes mellitus, type 2 with end-stage renal disease, requiring hemodialysis. 5. Hypertension. 6. Paroxysmal atrial fibrillation. 7. History of aortic valve replacement. PLAN: Blood cultures have been ordered. Rocephin will be started IV. Dr. Underwood will be consulted to take a look at the foot as the wound care. Antiemetics will be given. Selected blood pressure medicines will be given. Accu-Cheks and sliding scale will be done. Job ID: [id number]
[2018-06-09] MEDS ORDERED: Metoclopramide HCl 10 MG TAB PO SCH (16:00)
[2018-06-09 16:45] LABS: INR-International Normal Ratio 1.1; PTT 42.5 SEC (22.9-36.1); Prothrombin Time 14.6 SEC (12.0-14.7)
[2018-06-09] MEDS: Carvedilol 6.25 MG TAB PO SCH (21:47)
[2018-06-09] MEDS: Metoclopramide HCl 10 MG TAB PO SCH (21:48)
[2018-06-09] MEDS: Heparin 5,000 UNITS/ML VIAL SC SCH (21:49)
[2018-06-09] MEDS: Calcium Acetate 667 MG CAP PO SCH (21:57)
--- NOTE | 2018-06-09 23:21 | HP ---
HISTORY OF PRESENT ILLNESS: Jose Ramon Lackey is a 68-year-old male recently admitted to the hospital and discharged, has severe PAD. He has amputations of two toes on his right foot. Dr. Davon Brice performed a BILINGUAL EXECUTIVE ASSISTANT of his superficial femoral artery and popliteal artery without stenting. He is on aspirin and Plavix. He was sent home. The surgical sites on his foot did not look good at the time and it was anticipated that he would need a BKA. He now presents to the emergency room and has worsening ecchymosis over his forefoot with bullae. He was admitted to the medical service and I have been asked to see him. The patient has diabetes, insulin dependent. Plan at this time is for right below-knee amputation tomorrow. We will keep him on intravenous antibiotics today. Risks and benefits of the procedure have been discussed with him and he consents. The patient has end-stage renal disease, on maintenance dialysis. ALLERGIES: CHEESE. SOCIAL HISTORY: Tobacco, none. Alcohol, none. MEDICATIONS: 1. Omeprazole. 2. Reglan. 3. Glipizide. 4. Simvastatin. 5. Protonix. 6. Lisinopril. 7. Isosorbide. 8. Insulin. 9. Carvedilol. 10. Calcium. 11. Also started on ceftriaxone, has had vancomycin dose. PAST SURGICAL HISTORY: In 2013, right basilic vein transposition fistula; aortic valve replacement in 2017, amputation of two toes in right foot recently in the last week. PAST MEDICAL HISTORY: End-stage renal disease, diabetes mellitus type 2, hypertension; maintenance dialysis Thursday, Thursday, and Thursday at [facility], followed by Dr. Zaman; GERD. PHYSICAL EXAMINATION: HEAD, EARS, EYES, NOSE, AND THROAT: Unremarkable. LUNGS: Clear to auscultation. CARDIAC: Regular rate and rhythm without murmur or gallop. ABDOMEN: Soft and nontender. EXTREMITIES: Palpable femoral pulses. Nonpalpable distal pulses. Right popliteal is palpable. Pedal pulses nonpalpable. Ecchymosis bullae over his foot ankle distally, gangrene toes. ASSESSMENT AND PLAN: End-stage renal disease with severe peripheral arterial disease, not amenable further intervention. Would recommend right below-knee amputation. We will plan this tomorrow. Job ID: [id number]
[2018-06-10 03:20] VITALS: BMI 24.9
[2018-06-10] MEDS: Heparin 5,000 UNITS/ML VIAL SC SCH ×3 (03:53→20:30)
[2018-06-10] MEDS: Metoclopramide HCl 10 MG TAB PO SCH ×4 (03:53→20:29)
[2018-06-10] MEDS ORDERED: traMADol HCl 50 MG TAB PO PRN ×2 (08:25)
[2018-06-10] MEDS ORDERED: Acetaminophen 500 MG TAB PO PRN (08:25)
[2018-06-10] MEDS: Calcium Acetate 667 MG CAP PO SCH ×3 (08:34→17:32)
[2018-06-10] MEDS: Carvedilol 6.25 MG TAB PO SCH ×2 (08:34→20:29)
[2018-06-10] MEDS: Lisinopril 5 MG TAB PO SCH (08:35)
--- NOTE | 2018-06-10 09:07 | PDOC.PN ---
- Subjective Encounter Start Date: 06/10/18 Encounter Start Time: 09:05 Subjective: no pain or fever - Objective Resuscitation Status - Order Detail: 06/09/18 14:09 Resuscitation Status Routine Resuscitation Status: FULL: Full Resuscitation MAR Reviewed: Yes Vital Signs & Weight: Vital Signs (12 hours) Temp Pulse Resp BP Pulse Ox 06/10/18 08:00 98 F 66 14 145/67 H 94 L 06/10/18 04:00 67 18 117/57 L 94 L 06/09/18 23:44 97.7 F 63 20 141/64 H 94 L Weight Weight 145 lb 6.4 oz Result Diagrams: 06/09/18 11:26 06/09/18 11:26 Phys Exam - Physical Examination Neck: no JVD Respiratory: clear to auscultation bilateral Cardiovascular: RRR, no significant murmur Gastrointestinal: soft, positive bowel sounds non-viable tissue R foot Dx/Plan (1) Gangrene of toe of right foot Code(s): I96 - GANGRENE, NOT ELSEWHERE CLASSIFIED Status: Acute Comment: s/ p amputation, may need BKA, d/c home today and f/u with Dr. Underwood in clinic to reassess (2) Anemia of renal disease Code(s): D63.1 - ANEMIA IN CHRONIC KIDNEY DISEASE Status: Chronic (3) DM type 2 (diabetes mellitus, type 2) Status: Chronic Qualifiers: Diabetes mellitus assisted insulin use: with assisted use Diabetes mellitus complication status: with kidney complications Chronic kidney disease stage: on chronic dialysis Comment: (4) ESRD (end stage renal disease) on dialysis Code(s): N18.6 - END STAGE RENAL DISEASE; Z99.2 - DEPENDENCE ON RENAL DIALYSIS Status: Chronic (5) HLD (hyperlipidemia) Code(s): E78.5 - HYPERLIPIDEMIA, UNSPECIFIED Status: Chronic (6) HTN (hypertension) Code(s): I10 - ESSENTIAL (PRIMARY) HYPERTENSION Status: Chronic Qualifiers: Hypertension type: essential hypertension Qualified Code(s): I10 - Essential (primary) hypertension (7) PVD (peripheral vascular disease) Code(s): I73.9 - PERIPHERAL VASCULAR DISEASE, UNSPECIFIED Status: Chronic - Plan planned BKA on R today, -: cont accu/ss -: cont coreg/EPHRAIM * .
[2018-06-10] MEDS ORDERED: cefTRIAXone\\ROCEPHIN 1 GM in Sodium Chloride 0.9% 100 ML IVPB SCH (12:15)
[2018-06-10] MEDS ORDERED: Fentanyl 250 MCG/5 ML VIAL ONE (12:19)
[2018-06-10] MEDS ORDERED: Promethazine HCl 25 MG/ML VIAL SLOW IVP PRN (13:52)
[2018-06-10] MEDS ORDERED: Promethazine HCl 25 MG/ML VIAL IM PRN (13:52)
[2018-06-10] MEDS ORDERED: Ondansetron HCl/PF 4 MG/2 ML Vial IVP PRN (13:52)
[2018-06-10] MEDS ORDERED: Fentanyl 100 MCG/2 ML VIAL ONE ×2 (14:10→14:28)
[2018-06-10] MEDS ORDERED: Rocuronium Bromide 10 MG/ML (10ML VIAL) ONE (16:00)
[2018-06-10] MEDS ORDERED: PHENYLEPHRINE-NS 100 MCG/ML 10 ML SYRINGE ONE (16:00)
[2018-06-10] MEDS ORDERED: Ondansetron PF 4 MG/2 ML Vial ONE (16:00)
[2018-06-10] MEDS ORDERED: ePHEDrine 50 MG/ML VIAL ONE (16:00)
[2018-06-10] MEDS ORDERED: PROPOFOL 200 MG/20 ML VIAL ONE (16:00)
[2018-06-10] MEDS ORDERED: Glycopyrrolate 0.2 MG/ML 5 ML SYRINGE ONE (16:00)
[2018-06-10] MEDS ORDERED: Lidocaine 1% PF 5 ML VIAL ONE (16:00)
[2018-06-10] MEDS ORDERED: Morphine 4 MG/ML VIAL SLOW IVP PRN (19:00)
[2018-06-10] MEDS ORDERED: HYDROcodone/Acetaminophen 5/325 mg Tablet PO PRN (19:01)
[2018-06-10] MEDS: HYDROcodone/Acetaminophen 5/325 mg Tablet PO PRN (19:26)
--- NOTE | 2018-06-10 20:42 | OP ---
DATE OF PROCEDURE: 06/10/2018 PREOPERATIVE DIAGNOSES: Peripheral arterial disease, ischemic right foot with gangrene, end-stage renal disease. POSTOPERATIVE DIAGNOSES: Peripheral arterial disease, ischemic right foot with gangrene, end-stage renal disease. PROCEDURE PERFORMED: Right below-knee amputation. ANESTHESIA: General. ESTIMATED BLOOD LOSS: 100 mL. DESCRIPTION OF PROCEDURE: The patient was taken to the operating room. Under general anesthesia, right lower extremity is prepared with ChloraPrep and draped in routine fashion. Incision was made for [id number] amputation with a long posterior flap, carried down to the skin, subcutaneous tissue, fascia and dividing the muscular bundles with a cautery and vascular bundles between clamps, ligated with 2-0 silk ties. Periosteum raised cephalad and tibia transected with Gigli saw, beveling the anterior edge, bevelling the anterior edge cephalad, smoothing the edges with a rasp. Fibula transected with a bone cutter about an inch above the cut edge of the tibia. Wound irrigated. Good hemostasis noted and obtained with a cautery and 2-0 silk ties. Fascia approximated with [id number] sutures of 2-0 Vicryl, skin with huyen. Sterile dressing applied. Job ID: [id number]
[2018-06-10] MEDS: Morphine 4 MG/ML VIAL SLOW IVP PRN (21:41)
[2018-06-11] MEDS: Morphine 4 MG/ML VIAL SLOW IVP PRN (04:26)
[2018-06-11 06:22] LABS: #Eosinphils 0.1 thou/uL (0.0-0.7); #Lymphocytes 0.7 thou/uL (1.20-3.40); #Monocytes 0.5 thou/uL (0.11-0.59); #Neutrophils 4.3 thou/uL (1.40-6.50); %Basophils 0.1 % (0.0-1.0); %Eosinophils 2.6 % (0.0-10.0); %Lymphocytes 11.8 % (21.0-51.0); %Monocytes 9.1 % (0.0-10.0); %Neutrophils 76.5 % (42.0-75.0); Hemoglobin 7.1 g/dL (14.0-18.0); Mean Corpuscular HGB CONC 31.1 g/dL (32.0-36.0); Mean Corpuscular Hemoglobin 29.8 pg (27.0-31.0); Mean Corpuscular Volume 95.9 fL (78.0-98.0); Mean Platelet Volume 7.6 fL (7.4-10.4); Platelet Count 142 thou/uL (130-400); RBC Distribution Width 14.4 % (11.5-14.5); Red Blood Cell (RBC) Count 2.38 mill/uL (4.70-6.10); White Blood Cell (WBC) Count 5.6 thou/uL (4.8-10.8)
[2018-06-11] MEDS: HYDROcodone/Acetaminophen 5/325 mg Tablet PO PRN ×2 (06:31→14:07)
[2018-06-11 06:53] LABS: Anion Gap 16 mmol/L (10-20); BUN (Urea Nitrogen) 40 mg/dL (8.4-25.7); Calc. Creatinine Clearance 10 mL/min (70-130); Carbon Dioxide 26 mmol/L (23-31); Chloride 100 mmol/L (98-107); Estimated GFR-MDRD 8; Glucose 90 mg/dL (80-115); Potassium 4.8 mmol/L (3.5-5.1); Sodium 137 mmol/L (136-145)
[2018-06-11] MEDS: Lisinopril 5 MG TAB PO SCH (08:56)
[2018-06-11] MEDS: Calcium Acetate 667 MG CAP PO SCH ×3 (08:57→18:18)
[2018-06-11] MEDS: Carvedilol 6.25 MG TAB PO SCH ×2 (08:57→22:25)
[2018-06-11] MEDS: Metoclopramide HCl 10 MG TAB PO SCH ×3 (08:58→22:26)
[2018-06-11] MEDS: Heparin 5,000 UNITS/ML VIAL SC SCH ×3 (08:59→22:26)
[2018-06-11] MEDS ORDERED: cefTRIAXone\\ROCEPHIN 1 GM in Sodium Chloride 0.9% 100 ML IVPB SCH (12:00)
--- NOTE | 2018-06-11 13:58 | PDOC.PN ---
- Subjective Encounter Start Date: 06/11/18 Encounter Start Time: 08:40 Pt seen for followup re: right toe gangrene. Denies chest pain, shortness of breath, fevers or chills. - Objective Resuscitation Status - Order Detail: 06/09/18 14:09 Resuscitation Status Routine Resuscitation Status: FULL: Full Resuscitation MAR Reviewed: Yes Vital Signs & Weight: Vital Signs (12 hours) Temp Pulse Pulse Resp BP BP BP 06/11/18 12:00 97.5 F L 66 16 116/68 06/11/18 09:33 58 L 129/69 06/11/18 08:57 126/84 06/11/18 08:00 97.9 F 60 18 143/72 H 06/11/18 04:25 97.9 F 59 L 18 129/59 L Pulse Ox 06/11/18 12:00 92 L 06/11/18 09:33 06/11/18 08:57 98 06/11/18 08:00 98 06/11/18 04:25 96 Weight Weight 145 lb 6.4 oz I&O: 06/10/18 06/11/18 06/12/18 06:59 06:59 06:59 Intake Total 200 Balance 200 Result Diagrams: 06/11/18 05:48 06/11/18 05:48 Additional Labs: labs reviewed by me Phys Exam - Physical Examination Constitutional: NAD HEENT: moist MMs Neck: supple Respiratory: clear to auscultation bilateral Cardiovascular: RRR Gastrointestinal: soft Neurological: moves all 4 limbs Psychiatric: normal affect Dx/Plan (1) Gangrene of toe of right foot Code(s): I96 - GANGRENE, NOT ELSEWHERE CLASSIFIED Status: Acute Comment: s/ p R BKA, awaiting Rehab bed (2) DM type 2 (diabetes mellitus, type 2) Status: Chronic Qualifiers: Diabetes mellitus intermediate card tender insulin use: with intermediate card tender use Diabetes mellitus complication status: with kidney complications Chronic kidney disease stage: on chronic dialysis Comment: controlled (3) ESRD (end stage renal disease) on dialysis Code(s): N18.6 - END STAGE RENAL DISEASE; Z99.2 - DEPENDENCE ON RENAL DIALYSIS Status: Chronic Comment: dialysis per nephrology service (4) HLD (hyperlipidemia) Code(s): E78.5 - HYPERLIPIDEMIA, UNSPECIFIED Status: Chronic Comment: resume statin (5) HTN (hypertension) Code(s): I10 - ESSENTIAL (PRIMARY) HYPERTENSION Status: Chronic Qualifiers: Hypertension type: essential hypertension Qualified Code(s): I10 - Essential (primary) hypertension Comment: resume isosorbide mononitrate - Plan * . Review of Systems - Review of Systems Cardiovascular: negative: chest pain, palpitations, orthopnea, paroxysmal nocturnal dyspnea, edema, light headedness Gastrointestinal: negative: Nausea, Vomiting, Abdominal Pain, Diarrhea, Constipation, Melena, Hematochezia Musculoskeletal: Leg Pain - Medications/Allergies Allergies/Adverse Reactions: Allergies Allergy/AdvReac Type Severity Reaction Status Date / Time cheese Allergy Verified 06/09/18 19:50 Medications: Current Medications Acetaminophen (Tylenol) 1,000 mg PO Q6H PRN PRN Reason: Moderate to Severe Pain (6-10) Last Admin: 06/10/18 17:32 Dose: 1,000 mg Hydrocodone Bitart/Acetaminophen (Barnhart 5/325) 1 tab PO QID PRN PRN Reason: PAIN SCALE 1-5 Hydrocodone Bitart/Acetaminophen (Barnhart 5/325) 2 tab PO QID PRN PRN Reason: PAIN SCALE 6-10 Last Admin: 06/11/18 06:31 Dose: 2 tab Calcium Acetate (Phoslo) 1,334 mg PO TID-[facility] Last Admin: 06/11/18 11:48 Dose: 1,334 mg Carvedilol (Coreg) 12.5 mg PO BID [facility] Last Admin: 06/11/18 08:57 Dose: Not Given Dextrose/Water (Dextrose 50%) 25 gm SLOW IVP PRN PRN PRN Reason: Hypoglycemia Glucagon (Glucagon) 1 mg IM PRN PRN PRN Reason: Hypoglycemia Heparin Sodium (Porcine) (Heparin) 5,000 units SC TID [facility] Last Admin: 06/11/18 08:59 Dose: 5,000 units Dextrose/Water (D5w) 1,000 mls @ 0 mls/hr IV .Q0M PRN PRN Reason: Hypoglycemia Insulin Human Lispro (Humalog) 0 units SC .MILD SLIDING SCALE PRN PRN Reason: Mild Correctional Scale Last Admin: 06/10/18 21:39 Dose: 3 unit Lisinopril (Zestril) 5 mg PO DAILY [facility] Last Admin: 06/11/18 08:56 Dose: Not Given Metoclopramide HCl (Reglan) 5 mg PO TID [facility] Last Admin: 06/11/18 08:58 Dose: 5 mg Morphine Sulfate (Morphine) 2 mg SLOW IVP Q4H PRN PRN Reason: Moderate Pain 4-6 BREAKTHROUGH Morphine Sulfate (Morphine) 4 mg SLOW IVP Q4H PRN PRN Reason: Severe Pain 7-10 BREAKTHROUGH Last Admin: 06/11/18 04:26 Dose: 4 mg Ondansetron HCl (Zofran Odt) 4 mg PO Q6H PRN PRN Reason: Nausea/Vomiting Last Admin: 06/10/18 17:00 Dose: 4 mg Tramadol HCl (Ultram) 100 mg PO Q12H PRN PRN Reason: Severe Pain (7-10) Last Admin: 06/10/18 17:33 Dose: 100 mg Tramadol HCl (Ultram) 50 mg PO Q12H PRN PRN Reason: Moderate Pain (4-6) Zolpidem Tartrate (Ambien) 5 mg PO HSPRN PRN PRN Reason: Insomnia
--- NOTE | 2018-06-11 19:37 | PRG ---
DATE OF SERVICE: 06/11/2018 SUBJECTIVE: Jose Ramon Lackey is doing well today. His pain is under good control. OBJECTIVE: VITAL SIGNS: Temperature 98 degrees, heart rate 72, blood pressure 113/58. LUNGS: Clear to auscultation. CARDIAC: No murmur or gallop. ABDOMEN: Soft, nontender. EXTREMITIES: Right BKA dressing is dry. LABORATORY DATA: This morning his hemoglobin ia 7.1. I ordered 1 unit of packed cells. ASSESSMENT AND PLAN: He dialyzed today. The patient's dressing can be removed tomorrow. He can begin washing daily his BKA stump with soap and water, apply antibiotic ointment, Telfa and a stump senior loan officer. He should visit my office in 2 weeks for staple removal. He can transfer to the rehab unit tomorrow, Thursday. Job ID: [id number]
[2018-06-11] MEDS ORDERED: Atorvastatin Calcium 20 MG TAB PO SCH (21:00)
--- NOTE | 2018-06-12 01:20 | CON ---
DATE OF CONSULTATION: 06/11/2018 CONSULTING PHYSICIAN: Dr. Sandoval. REASON FOR CONSULTATION: End-stage renal disease evaluation. REASON FOR ADMISSION: Vomiting, possibly blood. HISTORY OF PRESENT ILLNESS: This is a 68-year-old male with history of end-stage renal disease, on hemodialysis, type 2 diabetes, AFib, hypertension, anemia, came to the hospital with vomiting and is being admitted, Nephrology was consulted for maintenance of hemodialysis. He gets dialysis Thursday, Thursday, and Thursday. Last dialysis was Thursday. No fever or chills reported. No chest pain. He had dialysis today. PAST MEDICAL HISTORY: Positive for end-stage renal disease, on hemodialysis, type 2 diabetes, hypertension, AFib, anemia, gastroesophageal reflux disease. PAST SURGICAL HISTORY: AV fistula placement and aortic valve replacement. HOME MEDICATIONS: Reviewed. ALLERGIES: CHEESE. SOCIAL HISTORY: No smoking, alcohol, or illicit drug abuse. FAMILY HISTORY: No history of any kidney disease. REVIEW OF SYSTEMS: CONSTITUTIONAL: Negative for weight loss or gain, ability to conduct usual activities. SKIN: Negative for rash, itching. EYES: Negative for double vision, pain. ENT/MOUTH: Negative for nose bleeding, neck stiffness, pain, tenderness. CARDIOVASCULAR: Negative for palpitations, dyspnea on exertion, orthopnea. RESPIRATORY: Negative for shortness of breath, wheezing, cough, hemoptysis, fever or night sweats. GASTROINTESTINAL: Negative for poor appetite, abdominal pain, heartburn, nausea, vomiting, constipation, or diarrhea. GENITOURINARY: Negative for urgency, frequency, dysuria, nocturia. MUSCULOSKELETAL: Negative for pain, swelling. NEUROLOGIC/PSYCHIATRIC: Negative for anxiety, depression. ALLERGY/IMMUNOLOGIC: Negative for skin rash, bleeding tendency. PHYSICAL EXAMINATION: GENERAL: This is a well-built male, in no apparent distress. VITAL SIGNS: Temperature HEENT: Atraumatic and normocephalic. Oral mucosa is moist. NECK: Supple. CARDIOVASCULAR: S1 and S2 heard. Rate and rhythm regular. RESPIRATORY: Clear. GI: Abdomen is soft. MUSCULOSKELETAL: 1+ edema. DERMATOLOGIC: No skin rash. NEUROLOGIC: Alert and awake. PSYCHIATRIC: Normal mood and affect. LABORATORY DATA: Hemoglobin is 7.1. Potassium is 4.8, BUN is 40, creatinine is 6.7. ASSESSMENT AND PLAN: 1. End-stage renal disease, continue on hemodialysis. 2. Anemia. Recommend transfusion. 3. Edema, controlled. 4. Hypertension. 5. Type 2 diabetes. PLAN: Plan is to continue on dialysis on Thursday, Thursday, and Thursday. Job ID: [id number]
[2018-06-12 05:46] LABS: #Eosinphils 0.1 thou/uL (0.0-0.7); #Lymphocytes 0.7 thou/uL (1.20-3.40); #Monocytes 0.6 thou/uL (0.11-0.59); #Neutrophils 4.1 thou/uL (1.40-6.50); %Basophils 0.1 % (0.0-1.0); %Eosinophils 2.5 % (0.0-10.0); %Monocytes 10.3 % (0.0-10.0); %Neutrophils 74.1 % (42.0-75.0); Hemoglobin 9.5 g/dL (14.0-18.0); Mean Corpuscular HGB CONC 31.7 g/dL (32.0-36.0); Mean Corpuscular Hemoglobin 29.4 pg (27.0-31.0); Mean Corpuscular Volume 92.7 fL (78.0-98.0); Mean Platelet Volume 7.9 fL (7.4-10.4); Platelet Count 143 thou/uL (130-400); RBC Distribution Width 14.4 % (11.5-14.5); Red Blood Cell (RBC) Count 3.22 mill/uL (4.70-6.10); White Blood Cell (WBC) Count 5.5 thou/uL (4.8-10.8)
[2018-06-12] MEDS ORDERED: glipiZIDE 5 MG TAB PO SCH (07:30)
[2018-06-12] MEDS ORDERED: Clopidogrel Bisulfate 75 MG TAB PO SCH (09:00)
[2018-06-12] MEDS: Carvedilol 6.25 MG TAB PO SCH (09:28)
[2018-06-12] MEDS: Lisinopril 5 MG TAB PO SCH (09:29)
[2018-06-12] MEDS: Calcium Acetate 667 MG CAP PO SCH ×2 (09:29→12:19)
[2018-06-12] MEDS: Metoclopramide HCl 10 MG TAB PO SCH (09:29)
[2018-06-12] MEDS: Heparin 5,000 UNITS/ML VIAL SC SCH (09:30)
[2018-06-12 12:05] VITALS: BP 156/66; TEMP 98.8
[2018-06-12] MEDS: HYDROcodone/Acetaminophen 5/325 mg Tablet PO PRN (13:46)
--- NOTE | 2018-06-12 15:47 | DIS ---
DATE OF ADMISSION: 06/09/2018 DATE OF DISCHARGE: 06/12/2018 PRIMARY CARE PROVIDER: Dr. Alfie Smith. DISCHARGE DIAGNOSES: 1. Gangrene of toe of right foot. 2. Nausea and vomiting. 3. End-stage renal disease, on dialysis. 4. Ischemic right foot with gangrene. CONSULTATIONS DURING THIS HOSPITALIZATION: General Surgery, Dr. Underwood, and Nephrology, Dr. Mcdaniel. CONDITION OF PATIENT ON THE DAY OF DISCHARGE: Stable. I assessed Mr. Lackey on the day of discharge. He denies any chest pain or shortness of breath. Vital signs are stable. S1 and S2 are heard, regular. Lungs are clear to auscultation bilaterally. DISCHARGE MEDICATIONS: 1. PhosLo 1334 mg three times a day. 2. Coreg 12.5 mg 2 times a day. 3. Glipizide 5 mg daily. 4. Humulin insulin per sliding scale. 5. Imdur 30 mg daily. 6. Lisinopril 5 mg daily. 7. Metoclopramide 5 mg three times a day. 8. Omeprazole 40 mg as needed. 9. Plavix 75 mg daily. 10. Zocor 40 mg at bedtime. 11. Tramadol 50 to 100 mg 2 times a day as needed. HOSPITAL COURSE: Mr. Lackey is a pleasant 68-year-old gentleman, who was admitted to [facility] on June 09, 2018, for nausea and vomiting. He was also found to have worsening infection in his right toe. He was seen by General Surgery Service. Nausea and vomiting, resolved. On June 10, he underwent right below-knee amputation. Mr. Lackey was assessed by Therapy Services. He is being discharged to inpatient rehab for further management. He was also seen by Nephrology Service for maintenance hemodialysis. Many thanks for allowing me to participate in your patient's care. Please feel free to contact me with any questions or concerns. DISCHARGE DESTINATION: [facility]. TIME SPENT: Total amount of time spent coordinating this discharge: 33 minutes. Job ID: [id number]
== END 2018-06-12 16:00 | DRG 239 ==
LOC: ERS 10:02 → ERHOLD 13:55 → 2SW 19:56 → OBSVTOIN 20:28 → SURG A 06-10 18:55
PROVIDERS: ADMIT Internal Medicine; ATTEND Internal Medicine
PROC: 0Y6H0Z3 Detachment at Right Lower Leg, Low, Open Approach (ICD-10-PCS; principal; 2018-06-10)
PROC: 5A1D70Z Performance of Urinary Filtration, Intermittent, Less than 6 Hours Per Day (ICD-10-PCS; 2018-06-11)
DX: E11.52 Type 2 diabetes mellitus with diabetic peripheral angiopathy with gangrene (principal); N18.6 End stage renal disease; I96 Gangrene, not elsewhere classified; I12.0 Hypertensive chronic kidney disease with stage 5 chronic kidney disease or end stage renal disease; E11.22 Type 2 diabetes mellitus with diabetic chronic kidney disease; I48.0 Paroxysmal atrial fibrillation; D63.1 Anemia in chronic kidney disease; K21.9 Gastro-esophageal reflux disease without esophagitis; E78.5 Hyperlipidemia, unspecified; Z89.421 Acquired absence of other right toe(s); Z95.4 Presence of other heart-valve replacement; Z99.2 Dependence on renal dialysis; Z91.011 Allergy to milk products; Z79.4 Long term (current) use of insulin
CPT/HCPCS: 36415; 36430; 80048; 80053; 82553; 82947; 83605; 83690; 84484; 85018; 85025; 85610; 85652; 85730; 86140; 86850; 86900; 86901; 87040; 88307; 88311; 96365; 96367; 96375; C9113; J0696; J1644; J2001; J2270; J2405; J2543; J2704; J3010; J3490; J7050; J8597; L8440; P9016; Q0162

== ENCOUNTER 2018-06-21 17:32 | Inpatient (IN) | payer MEDICARE ==
[2018-06-21 18:37] LABS: #Eosinphils 0.2 thou/uL (0.0-0.7); #Lymphocytes 0.6 thou/uL (1.20-3.40); #Monocytes 0.6 thou/uL (0.11-0.59); #Neutrophils 5.7 thou/uL (1.40-6.50); %Basophils 0.3 % (0.0-1.0); %Eosinophils 2.2 % (0.0-10.0); %Lymphocytes 8.5 % (21.0-51.0); %Monocytes 9.1 % (0.0-10.0); %Neutrophils 79.9 % (42.0-75.0); Hemoglobin 8.3 g/dL (14.0-18.0); Mean Corpuscular HGB CONC 31.9 g/dL (32.0-36.0); Mean Corpuscular Hemoglobin 30.2 pg (27.0-31.0); Mean Corpuscular Volume 94.8 fL (78.0-98.0); Mean Platelet Volume 7.5 fL (7.4-10.4); Platelet Count 198 thou/uL (130-400); RBC Distribution Width 14.3 % (11.5-14.5); Red Blood Cell (RBC) Count 2.75 mill/uL (4.70-6.10); White Blood Cell (WBC) Count 7.1 thou/uL (4.8-10.8)
[2018-06-21 18:51] LABS: Actual Bicarbonate (HCO3a) 28.4 mEq/L (22-28); Analyzer IN Cardio ER; CO2 Tension 47.8 mmHg (35.0-45.0); Calcium, Ionized 1.17 mmol/L (1.12-1.30); Hemoglobin (Hb) 8.4 g/dL (14.0-18.0); O2 Tension (PaO2) 78.9 mmHg (> 80.0); Potassium - ABG Lab 5.03 mmol/L (3.70-5.30); pH, Arterial 7.39 (7.35-7.45)
[2018-06-21 18:52] LABS: Puncture Site LRA
[2018-06-21 18:54] LABS: ALT (SGPT) 12 U/L (8-55); AST (SGOT) 19 U/L (5-34); Albumin 3.3 g/dL (3.4-4.8); Alkaline Phosphatase 103 U/L (40-150); Anion Gap 15 mmol/L (10-20); BUN (Urea Nitrogen) 73 mg/dL (8.4-25.7); Bilirubin, Total 0.4 mg/dL (0.2-1.2); CK (CPK) 258 U/L (30-200); Calc. Creatinine Clearance 0 mL/min (70-130); Calcium 9.5 mg/dL (7.8-10.44); Carbon Dioxide 30 mmol/L (23-31); Chloride 89 mmol/L (98-107); Estimated GFR-MDRD 7; Globulin 3.2 g/dL (2.4-3.5); Glucose 142 mg/dL (80-115); Lipase 119 U/L (8-78); Protein, Total 6.5 g/dL (5.8-8.1); Sodium 129 mmol/L (136-145)
--- NOTE | 2018-06-21 19:11 | RAD ---
CHEST ONE VIEW: Comparison: 12-08-16 History: Hypoglycemia. FINDINGS: Sternotomy wires are re-demonstrated. Atherosclerosis of the aorta. Normal cardiac silhouette. The pu lmonary vessels are mildly prominent. There are diffuse interstitial and alveolar opacities throughou t the lung parenchyma, greatest in the right lung base. Persistent opacification of the right lung ba se may be due to chronic change. Edema, infiltration or aspiration cannot be excluded. There is no pn eumothorax or acute osseous abnormality. Stent projects over the right upper extremity. IMPRESSION: 1. Possible volume overload/congestive heart failure. 2. Superimposed aspiration or pneumonia in the right lung base. Continued surveillance to ensure reso lution. POS: [facility]
[2018-06-21 19:47] LABS: Bilirubin Small (Negative); Blood, Urine Large (Negative); Clarity CLOUDY (Clear); Glucose, Urine (Dipstick) 100 mg/dL (Negative); Leukocyte Moderate (Negative); Nitrite Negative (Negative); Protein, Urine (Dipstick) 300 mg/dL (Neg-Trace); Specific Gravity, Urine 1.019 (1.002-1.036); Urobilinogen 0.2 mg/dL (0.2-1.0); pH, Urine 6.5 (5.0-9.0)
[2018-06-21 19:50] LABS: Hyaline Casts/LPF 0-3 HYALINE CAST LPF (0-3 Hyaline); Pathc Cast-AUWi Flag 0.29 (0-2.49); Squamous Epithelial 0-3 HPF (0-3); WBC/HPF 21-50 HPF (0-3)
[2018-06-21 19:54] LABS: Yeast-AUWi Flag 51.6 (0-25.0)
[2018-06-21 20:01] LABS: Bacteria/HPF 1+ HPF (None Seen); RBC/HPF 21-50 HPF (0-3); Renal Epithelial None Seen HPF (0-3); Transitional Epithelial NONE SEEN HPF (0-3); Yeast-All Forms None Seen HPF (None Seen)
--- NOTE | 2018-06-21 20:25 | CT ---
BRAIN CT WITHOUT CONTRAST: History: Hyperglycemia. Altered mental status. Comparison: 06-19-18 FINDINGS: No parenchymal hemorrhage. No extraaxial hematoma. No midline shift. Basilar cisterns are patent. Age appropriate brain volume. Cortical mirza white matter differentiation is preserved. No evidence of hy drocephalus. Stable malacic change of the left cerebellar hemisphere. Calvarium is intact. Adequate aeration of the paranasal sinuses and mastoid air cells. IMPRESSION: 1. No acute intracranial process. POS: [facility]
[2018-06-21] MEDS ORDERED: Ondansetron ODT 4 MG TAB PO PRN (20:59)
[2018-06-21] MEDS ORDERED: Acetaminophen 325 MG TAB PO PRN (20:59)
[2018-06-21] MEDS ORDERED: hydrALAZINE 20 MG/ML VIAL SLOW IVP PRN (20:59)
[2018-06-21] MEDS ORDERED: Ondansetron PF 4 MG/2 ML Vial IVP PRN (20:59)
[2018-06-21] MEDS ORDERED: Vancomycin HCl 750 MG in Sodium Chloride 0.9% 250 ML 250 ML IVPB SCH ×2 (21:00→21:45)
[2018-06-21] MEDS ORDERED: HOLD VANCOMYCIN FOR LEVEL >20 FS SCH (21:45)
[2018-06-21] MEDS ORDERED: Vancomycin HCl 1.25 GM in Sodium Chloride 0.9% 250 ML 250 ML IVPB SCH (21:45)
[2018-06-21] MEDS ORDERED: Vancomycin Sliding Scale 1 EACH FS ONE (21:45)
[2018-06-21] MEDS ORDERED: Vancomycin HCl 500 MG in Sodium Chloride 0.9% 100 ML IVPB SCH (21:45)
[2018-06-21] MEDS ORDERED: Vancomycin HCl 1 GM in Premix Bag 1 BAG IVPB SCH (21:45)
[2018-06-21] MEDS ORDERED: Piperacillin/Tazobactam 2.25 GM in Sodium Chloride 0.9% 100 ML IVPB SCH ×2 (22:00→23:59)
[2018-06-22] MEDS: Piperacillin/Tazobactam 2.25 GM in Sodium Chloride 0.9% 100 ML IVPB SCH ×4 (01:27→23:10)
[2018-06-22] MEDS ORDERED: Vancomycin HCl 1 GM in Premix Bag 1 BAG IVPB SCH (02:15)
[2018-06-22 02:41] LABS: HBSAg Index 0.24 S/CO (0-0.99); Hep B Surf Ag Non-Reactive S/CO (NonReactive)
[2018-06-22] MEDS ORDERED: Dextrose 5% in Water 1,000 ML IV PRN (03:03)
[2018-06-22] MEDS ORDERED: Dextrose 50% Abboject 50 ML SYRINGE SLOW IVP PRN (03:03)
[2018-06-22] MEDS: Vancomycin HCl 1 GM in Premix Bag 1 BAG IVPB SCH (03:14)
--- NOTE | 2018-06-22 05:50 | HP ---
PRIMARY CARE DOCTOR: Alfie Smith MD CODE STATUS: Full code. TIME OF EVALUATION: 8:30 p.m. CHIEF COMPLAINT: Change in mental status. HISTORY OF PRESENT ILLNESS: This is a 68-year-old male patient with a past medical history of right BKA in 05/2018. The patient has a gangrenous right great toe, came to the hospital after an acute change in mental status. In the long-term, the patient became unresponsive. Family reported symptoms have been getting worse for the past 2 to 3 days. No clear triggers. No alleviating factors. The patient was hypothermic with hypoglycemia, which was corrected by EMS. Symptoms were severe. During my examination, the patient is still confused. Family members reported the patient has left-sided deviation of the mouth, that this is new for him. REVIEW OF SYSTEMS: Constitutional: Unable to obtain, the patient is confused. He does not give any history. PAST MEDICAL HISTORY: Positive for hyperlipidemia, hypertension, coronary artery disease, end-stage renal disease on hemodialysis, diabetes type 2, CVA, and TIA. PAST SURGICAL HISTORY: Cardiac cath, stent, valve replacement, dialysis fistula in the right upper arm. PSYCHIATRIC HISTORY: No previous psych history. SOCIAL HISTORY: Former tobacco smoker, smoked cigarettes more than 10 years ago. FAMILY HISTORY: Reviewed and noncontributory for current presentation. KNOWN ALLERGIES: No known drug allergies reported. MEDICATIONS: 1. Novolin. 2. Isosorbide. 3. Lisinopril. 4. . 5. Reglan. 6. Omeprazole. 7. Protonix. 8. Simvastatin. 9. Tramadol. 10. Trazodone. 11. Vancomycin. PHYSICAL EXAMINATION: VITAL SIGNS: On presentation, blood pressure 143/62 with a heart rate of 60, respiratory rate 16, pain 0/10, oxygen saturation 97%, temperature 95.2. GENERAL APPEARANCE: The patient is confused, disoriented. HEENT: Eyes, normal conjunctivae. Moist oral mucosa. Anicteric. NECK: No JVD. RESPIRATORY: Bilateral air entry. No rales. No wheezes. Symmetric expansion. CARDIOVASCULAR: Normal rate, regular rhythm. No murmurs. No gallop. No edema. ABDOMEN: Soft. Normal bowel sounds. MUSCULOSKELETAL: Baseline range of motion and strength. No tenderness. SKIN: Warm, intact. No pallor. No rash. No redness. The patient did have a recent [id number] amputation. The patient has wound covered as per previous wound care treatment. Peripheral pulses are present. Capillary refill seems to be intact. NEUROLOGIC: The patient is encephalopathic, unable to talk properly, with left side deviation of the mouth. PSYCH: Unable to explore. DIAGNOSTIC DATA: EKG was reviewed. The patient has normal sinus rhythm with a rate of 64, OH 178, QRS 92, and QT corrected 460, prolonged QT. Chest x-ray was reviewed. The patient has a possible volume overload, congestive heart failure, superimposed aspiration pneumonia on the right lung base. Continue surveillance to ensure resolution. Brain CT, the patient had no acute intracranial process. LABORATORY DATA: Labs were reviewed. The patient has white count of 7.1, hemoglobin 9.3, MCV 94.8, platelet count 198. ABG; pH 7.39, pCO2 of 47.8, PO2 of 78, that was done in room air. Chemistry; sodium 139, potassium 5.0, chloride 89, carbon dioxide 30, anion gap 15, BUN 73 with a creatinine of 7.6, GFR 7, glucose 142. Lactic acid was normal. Ammonia 39, CK 258. Troponin 0.041. Beta-natriuretic peptide 2494. Lipase 119. UA was done and was positive with white count 21 to 50. ASSESSMENT AND PLAN: The patient will be placed in the hospital with following medical problems: 1. Aspiration pneumonia: The patient has positive chest x-ray, change in mental status in the past few days. Has been started on broad-spectrum antibiotics. We will follow cultures, we will adjust treatment as needed. 2. Acute encephalopathy, this has been progressive for the past few days per family members, could be secondary to underlying infection, however, the family also is complaining of patient having deviation of the mouth that is new for the patient and was not present before. The stroke is a rare possibility, but still needs to be ruled out. 3. Possible transient ischemic attack/stroke. The patient had deviation of the mouth as per the patient's family, this is new associated with acute encephalopathy. According to the family, it is only due to sepsis at this point. We will do a stroke protocol. The patient is aphasic, unable to talk properly. 4. Normocytic anemia. The patient has normal MCV, is likely secondary to chronic kidney disease. No need for any acute intervention at this point. We will follow nephrology's recommendation for treatment of anemia. 5. Hyponatremia. Sodium 139, this may be dilutional because of the fluid overload. We will monitor. This patient to receive dialysis as per nephrology's recommendations. 6. End-stage renal disease, on hemodialysis. The patient will need Nephro as inpatient. To continue hemodialysis. We will follow recommendations. 7. Mildly elevated troponin 0.041. This is likely [id number] myocardial infarction type 2, we will trend, adjust treatment accordingly. 8. Urinary tract infection, the patient has positive urine with elevated white count. Leukocyte esterase positive. The patient is already on antibiotics, follow cultures, treat accordingly. 9. Deep venous thrombosis prophylaxis. 10. Hypercholesterolemia. Low-cholesterol diet is advised. 11. Uncontrolled diabetes, the patient presented with hypoglycemia and was corrected by EMS, reconcile home medications, place the patient on sliding scale. Job ID: [id number]
[2018-06-22] MEDS ORDERED: Piperacillin/Tazobactam 2.25 GM in Sodium Chloride 0.9% 100 ML IVPB SCH (08:00)
[2018-06-22] MEDS ORDERED: Enoxaparin Sodium 30 MG/0.3 ML SYRINGE SC SCH (09:00)
[2018-06-22] MEDS: Aspirin 300 MG Suppository PR SCH (09:19)
[2018-06-22 11:29] LABS: #Eosinphils 0.1 thou/uL (0.0-0.7); #Lymphocytes 0.5 thou/uL (1.20-3.40); #Monocytes 0.5 thou/uL (0.11-0.59); #Neutrophils 4.3 thou/uL (1.40-6.50); %Basophils 0.1 % (0.0-1.0); %Eosinophils 1.9 % (0.0-10.0); %Lymphocytes 8.2 % (21.0-51.0); %Neutrophils 79.7 % (42.0-75.0); Hemoglobin 8.4 g/dL (14.0-18.0); Mean Corpuscular HGB CONC 32.1 g/dL (32.0-36.0); Mean Corpuscular Hemoglobin 29.7 pg (27.0-31.0); Mean Corpuscular Volume 92.6 fL (78.0-98.0); Mean Platelet Volume 7.4 fL (7.4-10.4); Platelet Count 173 thou/uL (130-400); RBC Distribution Width 14.3 % (11.5-14.5); Red Blood Cell (RBC) Count 2.81 mill/uL (4.70-6.10); White Blood Cell (WBC) Count 5.4 thou/uL (4.8-10.8)
[2018-06-22 11:54] LABS: Anion Gap 12 mmol/L (10-20); BUN (Urea Nitrogen) 22 mg/dL (8.4-25.7); Calc. Creatinine Clearance 17 mL/min (70-130); Calcium 9.1 mg/dL (7.8-10.44); Carbon Dioxide 29 mmol/L (23-31); Cardiac Risk 3.3 (Less than 4.5); Chloride 99 mmol/L (98-107); Cholesterol 109 mg/dl (< 200 Desired); Estimated GFR-MDRD 15; Glucose 61 mg/dL (80-115); HDL Cholesterol 33 mg/dL (>60 Neg Risk); LDL Cholesterol, Calculated 62 mg/dL; Sodium 136 mmol/L (136-145); Triglycerides 72 mg/dL (Less than 150)
--- NOTE | 2018-06-22 13:06 | CON ---
DATE OF CONSULTATION: REASON FOR CONSULTATION: End-stage renal disease. HISTORY OF PRESENT ILLNESS: A 68-year-old gentleman, transferred here from [facility] due to sepsis and altered mentation. The patient can give no further history. PAST MEDICAL HISTORY: Hypertension, hyperlipidemia, CVA, TIA, amputation, AV fistula tunneled dialysis catheter, cardiac cath, and valve replacement. SOCIAL HISTORY: No alcohol or drug use. FAMILY HISTORY: Negative for ESRD. ALLERGIES: REVIEWED. HOME MEDICATIONS LISTS: Reviewed. REVIEW OF SYSTEMS: Unobtainable. PHYSICAL EXAMINATION: CONSTITUTIONAL: The patient is resting. VITAL SIGNS: Afebrile, pulse 82, breathing 16, and blood pressure 139/60. GENERAL APPEARANCE AND MENTAL STATUS: Fair. HEAD/NECK: Normocephalic. Atraumatic. EYES: EOMI. No deformity. EARS: Clear. No ulcers. NOSE: Intact. No lesions. MOUTH: Clear. No discharge. THROAT: Clear. No exudate. LUNGS: Clear. No crackles. CARDIAC: S1, S2. No rub. ABDOMEN: Benign. Bowel sounds positive. GENITALIA/RECTUM: Osborne absent. BACK/EXTREMITIES: Edema 0+. NEUROLOGICAL: The patient is resting. SKIN: LYMPHATICS: LABORATORY DATA: Labs show a potassium of 5. ASSESSMENT AND PLAN: Stage 6 chronic kidney disease, plan dialysis tomorrow. Hypertension, stable. Anemia, stable. Medication based on GFR appropriate. Sepsis, continue antibiotics per primary team. Medication based on the above change Lovenox to regular heparin. Hypothyroidism, I would recommend starting the patient on Synthroid. Job ID: [id number]
--- NOTE | 2018-06-22 20:20 | PDOC.PN ---
- Subjective Encounter Start Date: 06/22/18 Encounter Start Time: 19:50 Subjective: f/u for acute encephalopathy likely due to sepsis from ? aspiration -: vs RLE stump cellulitis. Remains lethargic per family and NPO currently. -: Receiving Zosyn/Vancomycin currently. - Objective Resuscitation Status - Order Detail: 06/21/18 20:59 Resuscitation Status Routine Resuscitation Status: FULL: Full Resuscitation MAR Reviewed: Yes Vital Signs & Weight: Vital Signs (12 hours) Temp Pulse Pulse Pulse Resp BP BP 06/22/18 16:27 06/22/18 16:00 97.6 F 67 16 06/22/18 13:41 66 67 142/61 H 122/59 L 06/22/18 13:40 66 67 142/61 H 122/59 L 06/22/18 11:50 98.3 F 75 18 06/22/18 09:05 74 BP Pulse Ox 06/22/18 16:27 97 06/22/18 16:00 145/77 H 97 06/22/18 13:41 06/22/18 13:40 06/22/18 11:50 142/65 H 92 L 06/22/18 09:05 94 L Weight Admit Weight 146 lb 11.2 oz Weight 146 lb 11.2 oz I&O: 06/21/18 06/22/18 06/23/18 06:59 06:59 06:59 Intake Total 220 Balance 220 Result Diagrams: 06/22/18 11:20 06/22/18 11:20 Additional Labs: Accuchecks 06/22/18 06/22/18 06/22/18 16:29 10:58 05:37 POC Glucose 67 L 61 L 69 L Microbiology 06/21/18 18:25 Nasal swab Influenza Types A,B Direct EIA - Final 06/21/18 19:34 Urine Straight Catheter Urine Culture - Preliminary NO GROWTH AT 12 HOURS 06/21/18 18:12 Venous blood - Left Hand Blood Culture - Preliminary Specimen has been received and culture in progress. No Growth to date. 06/21/18 18:12 Venous blood - Left Arm Blood Culture - Preliminary Specimen has been received and culture in progress. No Growth to date. Laboratory Tests 12/05/11 11/03/17 06/21/18 15:46 12:01 18:12 Hgb Creatinine 7.61 H Ammonia TSH 3rd Generation 3.809 7.3921 H 06/21/18 06/21/18 06/21/18 18:12 18:12 19:45 Hgb 8.3 L Creatinine Ammonia 29 TSH 3rd Generation 13.3580 H Radiology Reviewed by me: Yes (CT brain - no acute process) EKG Reviewed by me: Yes (Tele - SR) Phys Exam - Physical Examination somnolent, opens eyes to name, smiled briefly HEENT: PERRLA, sclera anicteric, oral pharynx no lesions Neck: no nodes, no JVD, supple, full ROM Respiratory: no wheezing, no rales, no rhonchi, clear to auscultation bilateral S1, S2 Cardiovascular: RRR, no significant murmur, no rub, gallop Gastrointestinal: soft, non-tender, no distention, positive bowel sounds R LE stump with erythema, edema, dehiscence of huyen Musculoskeletal: pulses present, edema present Neurological: moves all 4 limbs A x O x 1 Skin: normal turgor, cap refill <2 seconds Dx/Plan (1) Wound dehiscence Code(s): T81.30XA - DISRUPTION OF WOUND, UNSPECIFIED, INITIAL ENCOUNTER Status : Acute Comment: RLE stump with wound dehiscence, WCT for local care, consult Gen Surgery for evaluation and consideration of debridement, continue Vancomycin /Zosyn (2) Toxic metabolic encephalopathy Code(s): G92 - TOXIC ENCEPHALOPATHY Status: Acute Comment: Likely due to #1 , continue tx as outlined in #1, start D5NS @ 50ml/h (3) ESRD (end stage renal disease) on dialysis Code(s): N18.6 - END STAGE RENAL DISEASE; Z99.2 - DEPENDENCE ON RENAL DIALYSIS Status: Chronic Comment: HD per Renal service (4) PVD (peripheral vascular disease) Code(s): I73.9 - PERIPHERAL VASCULAR DISEASE, UNSPECIFIED Status: Chronic Comment: Severe PVD, continue ASA (5) Hypothyroidism Code(s): E03.9 - HYPOTHYROIDISM, UNSPECIFIED Status: Acute Comment: Start Levothyroxine 100mcg daily - Plan plan discussed w/ family, continue antibiotics, PT/OT, social work assistant Continue Vancomycin/Zosyn -: Start D5NS @ 50ml/h -: HD per Renal service -: Start Synthroid 100mcg daily -: AM lab: BMP, CBC * Await Gen surgery evaluation
[2018-06-22] MEDS ORDERED: Levothyroxine Sodium 100 MCG TAB PO SCH (21:00)
[2018-06-22] MEDS: Dextrose 5 % And 0.9 % NaCl 1,000 ML IV SCH (21:14)
--- NOTE | 2018-06-22 22:41 | CON ---
DATE OF CONSULTATION: 06/22/2018 CONSULTING PHYSICIAN: Hospitalist Service. IMPRESSION: 1. Toxic metabolic encephalopathy. 2. End-stage renal disease. 3. Diabetes with hypoglycemia. PLAN: 1. Continue supportive measures. 2. Aspirin daily. HISTORY OF PRESENT ILLNESS: Mr. Lackey is a 68-year-old man who was admitted after developing some progressive lethargy over the last 2 to 3 days. His son reports that he was also having some hallucinations. He appeared to get sleepier and sleepier. He brought him to the emergency room. His initial blood glucose was 53, was treated with some D50. He had a temperature of 96 rectally. They thought that he might have a facial droop. He had a CT of the brain done, which was unremarkable for any acute changes. His urinalysis suggested a possible UTI. His chest x-ray showed enlarged cardiac silhouette and probable fluid overload. His BNP was elevated. His TSH is also elevated at 13.3. He has been admitted for further evaluation. He has, otherwise, been stable since admission. PAST MEDICAL HISTORY: As listed above. ALLERGIES: CHEESE. SOCIAL HISTORY: No tobacco or drug use. FAMILY HISTORY: Noncontributory. MEDICATIONS: Medication list was reviewed. REVIEW OF SYSTEMS: A 10-system review of systems, otherwise, unremarkable. PHYSICAL EXAMINATION: GENERAL: He is a somewhat frail-appearing elderly man, lying in bed, in no acute distress. VITAL SIGNS: Stable. He is afebrile. HEENT: Pupils are equal and reactive. Conjunctivae clear. Oropharynx clear. NECK: Supple. No lymphadenopathy noted. EXTREMITIES: No cyanosis. NEUROLOGIC: He was easily to awaken and followed commands appropriately. His speech seem to be fluent and clear. Cranial nerves did not show any facial asymmetry. Motor exam showed symmetric cashier tube room strength. His sensation was intact to touch. Plantar responses were downgoing. Gait was not tested. SUMMARY: Elderly gentleman with multiple problems including hypoglycemia, hypothyroidism, fluid overload, and urinary tract infection. I think that these are the primary etiologies of his cognitive decline over the last few days. Hopefully, he will rebound after addressing these problems. Job ID: [id number]
[2018-06-23 05:15] LABS: Anion Gap 15 mmol/L (10-20); BUN (Urea Nitrogen) 31 mg/dL (8.4-25.7); Calc. Creatinine Clearance 12 mL/min (70-130); Calcium 8.7 mg/dL (7.8-10.44); Carbon Dioxide 24 mmol/L (23-31); Chloride 101 mmol/L (98-107); Estimated GFR-MDRD 11; Glucose 70 mg/dL (80-115); Potassium 4.2 mmol/L (3.5-5.1); Sodium 136 mmol/L (136-145)
[2018-06-23 05:30] LABS: Band 10 % (5-11); Eosinophils 1 % (0-10); Hemoglobin 7.7 g/dL (14.0-18.0); Lymphocytes 7 % (21-51); MDiff Complete? YES; Mean Corpuscular HGB CONC 31.5 g/dL (32.0-36.0); Mean Corpuscular Hemoglobin 28.9 pg (27.0-31.0); Mean Corpuscular Volume 91.9 fL (78.0-98.0); Mean Platelet Volume 7.9 fL (7.4-10.4); Monocytes 9 % (0-10); Neutrophil 73 % (42-75); Platelet Count 192 thou/uL (130-400); RBC Distribution Width 14.5 % (11.5-14.5); Red Blood Cell (RBC) Count 2.65 mill/uL (4.70-6.10); White Blood Cell (WBC) Count 5.4 thou/uL (4.8-10.8)
[2018-06-23] MEDS: Levothyroxine Sodium 100 MCG TAB PO SCH (05:47)
[2018-06-23 07:25] LABS: Vancomycin, Random 23.2 ug/mL (See Comment)
[2018-06-23] MEDS: Piperacillin/Tazobactam 2.25 GM in Sodium Chloride 0.9% 100 ML IVPB SCH ×3 (08:31→20:07)
[2018-06-23] MEDS: Aspirin 300 MG Suppository PR SCH (08:32)
--- NOTE | 2018-06-23 12:12 | PRG ---
DATE OF SERVICE: 06/23/2018 SUBJECTIVE: Patient was seen and examined at bedside and overnight events noted. Patient denies any shortness of breath or chest pain or palpitation. No history of nausea or vomiting or diarrhea or fever or chills or cramps. OBJECTIVE: GENERAL: This is a well-build male, in no apparent distress. VITAL SIGNS: Temperature 98.7, pulse 60, respiratory rate 18. Blood pressure 147/69. HEENT: Atraumatic, normocephalic. Oral mucosa is moist NECK: Supple. CARDIOVASCULAR: S1, S2 heard. Rate and rhythm regular. RESPIRATORY: Clear to auscultation. GASTROINTESTINAL: Abdomen is soft. MUSCULOSKELETAL: No tenderness. No edema. DERMATOLOGIC: No skin rash. NEUROLOGIC: Alert and awake and oriented X3. No focal neurologic deficits. Moving all the extremities. PSYCHIATRIC: Mood and affect normal. LABORATORY DATA: Potassium is 4.2, BUN is 31, creatinine is 5.5. ASSESSMENT AND PLAN: 1. End-stage renal disease. Continue dialysis as tolerated. 2. Edema, controlled. 3. Hypertension, stable. 4. Anemia. We will continue dialysis as tolerated. Job ID: [id number]
[2018-06-23] MEDS ORDERED: Pantoprazole 40 MG VIAL IVP SCH ×2 (12:45→16:00)
--- NOTE | 2018-06-23 14:08 | PRG ---
DATE OF SERVICE: 06/23/2018 SUBJECTIVE: Jose Ramon Lackey is a 68-year-old patient with declined mental status, has been in rehab since undergoing amputation, [id number], 06/10/2018. The patient apparently became confused, fell in rehab. I was called from rehab stating his BK stump was cellulitic. He has been admitted with an aspiration pneumonia. He is on vancomycin. Evaluation of his right BKA stump reveals the wound is intact. There is some mild redness and ecchymosis, but no evidence of purulence. The patient has end-stage renal disease, on maintenance dialysis, right arm fistula access. At this point, I would recommend intravenous antibiotics, would remove two-thirds of his huyen, place Mastisol and Steri-Strips, and evaluate the wound after this to determine when the other huyen were removed. There is no indication for surgical intervention to his BKA stump. Job ID: [id number]
[2018-06-23] MEDS: Dextrose 5 % And 0.9 % NaCl 1,000 ML IV SCH (16:43)
--- NOTE | 2018-06-23 18:09 | PDOC.PN ---
- Subjective Encounter Start Date: 06/23/18 Encounter Start Time: 17:40 Subjective: f/u for metabolic encephalopathy due to likely R BKA stump cellulitis. -: Improved overall and alert and talkative. Taking po today. - Objective Resuscitation Status - Order Detail: 06/21/18 20:59 Resuscitation Status Routine Resuscitation Status: FULL: Full Resuscitation Vital Signs & Weight: Vital Signs (12 hours) Temp Pulse Pulse Pulse Resp BP BP 06/23/18 15:59 98.2 F 68 20 06/23/18 11:31 98.5 F 60 16 06/23/18 09:35 93 62 133/62 139/72 06/23/18 08:31 06/23/18 07:31 98.7 F 63 14 BP Pulse Ox 06/23/18 15:59 151/69 H 98 06/23/18 11:31 147/62 H 96 06/23/18 09:35 06/23/18 08:31 93 L 06/23/18 07:31 147/69 H 93 L Weight Admit Weight 146 lb 11.2 oz Weight 140 lb 3.424 oz I&O: 06/22/18 06/23/18 06/24/18 06:59 06:59 06:59 Intake Total 770 958 Output Total 2500 Balance 770 -1542 Result Diagrams: 06/23/18 04:33 06/23/18 04:33 Additional Labs: Accuchecks 06/23/18 06/23/18 06/23/18 16:46 10:39 05:26 POC Glucose 90 85 70 06/23/18 06/23/18 06/23/18 03:30 02:15 01:52 POC Glucose 70 67 L 62 L 06/22/18 19:43 POC Glucose 52 L* EKG Reviewed by me: Yes (Tele - SR) Phys Exam - Physical Examination Constitutional: NAD alert, smiles HEENT: PERRLA, sclera anicteric, oral pharynx no lesions Neck: no nodes, no JVD, supple, full ROM Respiratory: no wheezing, no rales, no rhonchi, clear to auscultation bilateral S1, S2 Cardiovascular: RRR, no significant murmur, no rub, gallop Gastrointestinal: soft, non-tender, no distention, positive bowel sounds R BKA stump with erythema, wound margins intact with huyen Musculoskeletal: pulses present, edema present Neurological: normal sensation, moves all 4 limbs Psychiatric: A&O x 3 Skin: normal turgor, cap refill <2 seconds Dx/Plan (1) Cellulitis of right lower extremity Code(s): L03.115 - CELLULITIS OF RIGHT LOWER LIMB Status: Acute Comment: Improved with Zosyn/Vancomycin, continue local WCT, remove about 50% huyen from R BKA wound, local dressing and steri-strips placed (2) Toxic metabolic encephalopathy Code(s): G92 - TOXIC ENCEPHALOPATHY Status: Acute Comment: Likely due to #1 , resolved, continue supportive mgmt (3) ESRD (end stage renal disease) on dialysis Code(s): N18.6 - END STAGE RENAL DISEASE; Z99.2 - DEPENDENCE ON RENAL DIALYSIS Status: Chronic Comment: HD per Renal service (4) PVD (peripheral vascular disease) Code(s): I73.9 - PERIPHERAL VASCULAR DISEASE, UNSPECIFIED Status: Chronic Comment: Severe PVD, continue ASA (5) Hypothyroidism Code(s): E03.9 - HYPOTHYROIDISM, UNSPECIFIED Status: Acute Comment: Start Levothyroxine 100mcg daily - Plan continue antibiotics, PT/OT, psych social worker Stable currently -: Saline lock IVF's -: Removed 50% huyen today -: WCT for local care -: AM lab: CBC * HD per Renal service * Likely can transition back to SNF/HH in 24-48h
[2018-06-23] MEDS: Metoclopramide HCl 10 MG TAB PO SCH (20:06)
[2018-06-24] MEDS: Levothyroxine Sodium 100 MCG TAB PO SCH (05:40)
[2018-06-24 05:44] LABS: Band 2 % (5-11); Eosinophils 3 % (0-10); Hemoglobin 7.6 g/dL (14.0-18.0); Lymphocytes 13 % (21-51); MDiff Complete? YES; Mean Corpuscular HGB CONC 30.9 g/dL (32.0-36.0); Mean Corpuscular Hemoglobin 29.9 pg (27.0-31.0); Mean Corpuscular Volume 96.6 fL (78.0-98.0); Mean Platelet Volume 7.4 fL (7.4-10.4); Monocytes 12 % (0-10); Neutrophil 70 % (42-75); Platelet Count 191 thou/uL (130-400); RBC Distribution Width 14.5 % (11.5-14.5); Red Blood Cell (RBC) Count 2.55 mill/uL (4.70-6.10); White Blood Cell (WBC) Count 5.7 thou/uL (4.8-10.8)
--- NOTE | 2018-06-24 09:00 | PDOC.PN ---
- Subjective Encounter Start Date: 06/24/18 Encounter Start Time: 08:59 Patient seen and examined, states he feels well, his pain has improved and he feels better. No new issues over 24 hours, No famliy at bedside, all questions answered. - Objective Resuscitation Status - Order Detail: 06/21/18 20:59 Resuscitation Status Routine Resuscitation Status: FULL: Full Resuscitation Vital Signs & Weight: Vital Signs (12 hours) Temp Pulse Resp BP Pulse Ox 06/24/18 07:34 98.1 F 63 16 153/68 H 97 06/24/18 04:59 98.8 F 65 16 134/60 99 Weight Admit Weight 146 lb 11.2 oz Weight 140 lb 3.424 oz I&O: 06/23/18 06/24/18 06/25/18 06:59 06:59 06:59 Intake Total 770 1273.8 Output Total 2500 Balance 770 -1226.2 Result Diagrams: 06/24/18 05:16 06/23/18 04:33 Additional Labs: Accuchecks 06/24/18 06/23/18 06/23/18 05:59 20:03 16:46 POC Glucose 165 H 204 H 90 06/23/18 10:39 POC Glucose 85 Phys Exam - Physical Examination Constitutional: NAD HEENT: PERRLA, moist MMs, sclera anicteric Neck: no nodes, no JVD, supple Respiratory: no wheezing, no rales, no rhonchi Cardiovascular: RRR, no significant murmur, no rub Gastrointestinal: soft, non-tender, no distention Musculoskeletal: no edema, pulses present right sided BKA, stump appears erythematous but better than before no pain Neurological: non-focal, normal sensation Dx/Plan (1) Cellulitis of right lower extremity Code(s): L03.115 - CELLULITIS OF RIGHT LOWER LIMB Status: Acute Comment: Improved with Zosyn/Vancomycin, continue local WCT, remove about 50% huyen from R BKA wound, local dressing and steri-strips placed (2) Anemia of renal disease Code(s): D63.1 - ANEMIA IN CHRONIC KIDNEY DISEASE Status: Chronic (3) DM type 2 (diabetes mellitus, type 2) Status: Chronic Qualifiers: Diabetes mellitus termite exterminator helper insulin use: with termite exterminator helper use Diabetes mellitus complication status: with kidney complications Chronic kidney disease stage: on chronic dialysis Comment: controlled (4) HLD (hyperlipidemia) Code(s): E78.5 - HYPERLIPIDEMIA, UNSPECIFIED Status: Chronic Comment: resume statin (5) HTN (hypertension) Code(s): I10 - ESSENTIAL (PRIMARY) HYPERTENSION Status: Chronic Qualifiers: Hypertension type: essential hypertension Qualified Code(s): I10 - Essential (primary) hypertension Comment: resume isosorbide mononitrate - Plan * continue wound care and current medical plan of care for now * consult PT for evaluation for rehab * DC plans to rehab if he qualifies otherwise to home with home health care if he qualifies * case and plan d/w patient at length, in slovenian, he understood and agreed with this plan.
[2018-06-24] MEDS: Piperacillin/Tazobactam 2.25 GM in Sodium Chloride 0.9% 100 ML IVPB SCH ×3 (09:25→23:54)
[2018-06-24] MEDS: Metoclopramide HCl 10 MG TAB PO SCH ×3 (09:26→22:03)
[2018-06-24] MEDS: Clopidogrel Bisulfate 75 MG TAB PO SCH (09:26)
--- NOTE | 2018-06-24 10:55 | PRG ---
DATE OF SERVICE: 06/24/2018 SUBJECTIVE: Patient was seen and examined at bedside and overnight events noted. Patient denies any shortness of breath or chest pain or palpitation. No history of nausea or vomiting or diarrhea or fever or chills or cramps. OBJECTIVE: GENERAL: This is a well-built male, in no apparent distress. VITAL SIGNS: Temperature 98. Pulse 64. Respiratory rate 16. Blood pressure 134/60. HEENT: Atraumatic, normocephalic. Oral mucosa is moist NECK: Supple. CARDIOVASCULAR: S1, S2 heard. Rate and rhythm regular. RESPIRATORY: Clear to auscultation. GASTROINTESTINAL: Abdomen is soft. MUSCULOSKELETAL: No tenderness. No edema. DERMATOLOGIC: No skin rash. NEUROLOGIC: Alert and awake and oriented X3. No focal neurologic deficits. Moving all the extremities. PSYCHIATRIC: Mood and affect normal. LABORATORY DATA: Potassium is 4.2, BUN is 31, creatinine is 5.0. ASSESSMENT AND PLAN: 1. End-stage renal disease. Continue on hemodialysis as tolerated. 2. Edema. 3. Hypertension. 4. Anemia. We will monitor. We will follow. Job ID: [id number]
[2018-06-24] MEDS: HumaLOG 300 UNITS/3 ML VIAL SC PRN ×2 (11:02→17:41)
--- NOTE | 2018-06-24 14:14 | PRG ---
DATE OF SERVICE: 06/24/2018 Jose Ramon Lackey is doing well. His right BKA stump looks good. He does not need any antibiotics for this stump, although receiving vancomycin once a week with dialysis as an outpatient could be done for a week or two precautionary. The wound looks good. Two-thirds of the huyen removed yesterday. I will ask that the balance of the huyen to be removed today. Should follow up in my office in about 2 weeks. I will see him as needed this hospitalization. The patient is stable for discharge from my standpoint. Job ID: [id number]
[2018-06-25] MEDS: HumaLOG 300 UNITS/3 ML VIAL SC PRN ×2 (00:17→17:33)
[2018-06-25] MEDS: Levothyroxine Sodium 100 MCG TAB PO SCH (06:37)
[2018-06-25 08:14] LABS: Vancomycin, Random 14.9 ug/mL (See Comment)
[2018-06-25] MEDS ORDERED: Epoetin (NON-ESRD) 20,000 UNITS/ML ML IVP SCH (09:00)
[2018-06-25 09:55] LABS: Vancomycin, Trough 11.7 ug/mL
--- NOTE | 2018-06-25 10:39 | PDOC.PN ---
- Subjective Encounter Start Date: 06/25/18 Encounter Start Time: 10:38 Patient seen and examined, no new issues or complaints, states his pain in his leg has much improved. Seen during dialysis, all questions answered. No family at bedside. - Objective Resuscitation Status - Order Detail: 06/21/18 20:59 Resuscitation Status Routine Resuscitation Status: FULL: Full Resuscitation Vital Signs & Weight: Vital Signs (12 hours) Temp Pulse Resp BP Pulse Ox 06/25/18 07:31 98.7 F 70 16 172/76 H 95 06/25/18 04:00 98.2 F 65 19 154/70 H 98 06/25/18 00:00 98.9 F 68 18 141/61 H 98 Weight Admit Weight 146 lb 11.2 oz Weight 140 lb 3.424 oz I&O: 06/24/18 06/25/18 06/26/18 06:59 06:59 06:59 Intake Total 1273.8 420 Output Total 2500 Balance -1226.2 420 Result Diagrams: 06/24/18 05:16 06/23/18 04:33 Additional Labs: Accuchecks 06/25/18 06/24/18 06/24/18 05:39 19:27 16:41 POC Glucose 88 241 H 169 H 06/24/18 10:35 POC Glucose 255 H Phys Exam - Physical Examination Constitutional: NAD HEENT: PERRLA, moist MMs, sclera anicteric Neck: no nodes, no JVD, supple Respiratory: no wheezing, no rales, no rhonchi Cardiovascular: RRR, no significant murmur, no rub Gastrointestinal: soft, non-tender, no distention, positive bowel sounds Musculoskeletal: pulses present, edema present (trace) R BKA Dx/Plan (1) Cellulitis of right lower extremity Code(s): L03.115 - CELLULITIS OF RIGHT LOWER LIMB Status: Acute Comment: Improved with Zosyn/Vancomycin, continue local WCT, remove about 50% huyen from R BKA wound, local dressing and steri-strips placed (2) Anemia of renal disease Code(s): D63.1 - ANEMIA IN CHRONIC KIDNEY DISEASE Status: Chronic (3) DM type 2 (diabetes mellitus, type 2) Status: Chronic Qualifiers: Diabetes mellitus manager intermediate insulin use: with retirement use Diabetes mellitus complication status: with kidney complications Chronic kidney disease stage: on chronic dialysis Comment: controlled (4) HLD (hyperlipidemia) Code(s): E78.5 - HYPERLIPIDEMIA, UNSPECIFIED Status: Chronic Comment: resume statin (5) HTN (hypertension) Code(s): I10 - ESSENTIAL (PRIMARY) HYPERTENSION Status: Chronic Qualifiers: Hypertension type: essential hypertension Qualified Code(s): I10 - Essential (primary) hypertension Comment: resume isosorbide mononitrate - Plan * pending rehab placement * cont current plan of care w/o change * DC to rehab once arrangements made * case and plan d/w patient at [facility], in [place], he understood and agreed with this plan
--- NOTE | 2018-06-25 10:42 | PDOC.EVN ---
Event Note - Event Note Event Note: DC SUMMARY #[id number]
--- NOTE | 2018-06-25 12:17 | PRG ---
DATE OF SERVICE: 06/25/2018 SUBJECTIVE: Patient was seen and examined at bedside and overnight events noted. Patient denies any shortness of breath or chest pain or palpitation. No history of nausea or vomiting or diarrhea or fever or chills or cramps. OBJECTIVE: GENERAL: This is a well-built male, in no apparent distress. VITAL SIGNS: Temperature 98.7. Heart rate 70. Respiratory rate 16. Blood pressure 172/76. HEENT: Atraumatic, normocephalic. Oral mucosa is moist NECK: Supple. CARDIOVASCULAR: S1, S2 heard. Rate and rhythm regular. RESPIRATORY: Clear to auscultation. GASTROINTESTINAL: Abdomen is soft. MUSCULOSKELETAL: No tenderness. No edema. DERMATOLOGIC: No skin rash. NEUROLOGIC: Alert and awake and oriented X3. No focal neurologic deficits. Moving all the extremities. PSYCHIATRIC: Mood and affect normal. LABORATORY DATA: Not done today. ASSESSMENT AND PLAN: 1. End-stage renal disease. Continue hemodialysis on Thursday, Thursday, and Thursday. 2. Edema. 3. Hypertension. 4. Anemia. We will monitor. Continue on dialysis on Thursday, Thursday, and Thursday. Job ID: [id number]
[2018-06-25] MEDS: Piperacillin/Tazobactam 2.25 GM in Sodium Chloride 0.9% 100 ML IVPB SCH ×2 (12:44→15:41)
[2018-06-25] MEDS: Metoclopramide HCl 10 MG TAB PO SCH ×3 (12:45→20:03)
--- NOTE | 2018-06-25 14:05 | DIS ---
DATE OF ADMISSION: 06/21/2018 DATE OF DISCHARGE: 06/25/2018 ADMITTING DIAGNOSES: 1. Altered mental status. 2. Hyperlipidemia. 3. Hypertension. 4. Coronary artery disease. 5. Diabetes mellitus type 2. 6. History of transient ischemic attack. 7. End-stage renal disease. DISCHARGE DIAGNOSES: 1. Altered mental status, resolved. 2. Hypertension. 3. Coronary artery disease. 4. End-stage renal disease. 5. History of transient ischemic attack, stable. 6. Right-sided below-knee amputation wound, stable. HOSPITAL COURSE: This is a 68-year-old male, who was admitted to the hospital due to altered mental status, was found to have an improvement in his altered mental status, post dialysis. The patient was also noted to have a right-sided BKA done on May of 2018, and was found to need surgical evaluation as well as Renal evaluation and Neurology evaluation. The patient had huyen removed. Wound care was done by the Surgery Team. The patient at the point in time of discharge, denies any nausea, vomiting, diarrhea, constipation, chest pain, fevers, or shortness of breath. The patient states that he is back to baseline. The patient was advised about physical therapy as well and recommended to go back to the rehab for further evaluation, treatment for physical therapy perspective. The patient had dialysis treatments done at time of discharge. The patient was cleared by medical services, and surgical specialties prior to discharge. No antibiotics recommended as he has completed a full course of antibiotics in the rehab as well as 5 days of antibiotics in the hospital. The patient at this point in time was requiring regular wound care and follow up with PCP, Surgery, Internal Medicine, Nephrology outpatient within 1 to 2 weeks for further management and care. DISPOSITION: Inpatient rehab. CONDITION: Stable. PROGNOSIS: Good. ACTIVITY: As tolerated with assistance as needed. MEDICATIONS: See MAR. DIET: Low-fat, low-calorie, high-fiber, renal diet. Case and plan discussed with the patient at length in Greek. He understood and agreed with this plan. Job ID: [id number]
[2018-06-25] MEDS: Clopidogrel Bisulfate 75 MG TAB PO SCH (15:41)
[2018-06-25] MEDS: Epoetin (ESRD) 10,000 UNITS/ML VIAL IVP SCH (15:42)
[2018-06-25 15:55] VITALS: BMI 21.3
[2018-06-26] MEDS: Piperacillin/Tazobactam 2.25 GM in Sodium Chloride 0.9% 100 ML IVPB SCH (02:15)
[2018-06-26] MEDS: Levothyroxine Sodium 100 MCG TAB PO SCH (04:50)
[2018-06-26] MEDS: Clopidogrel Bisulfate 75 MG TAB PO SCH (09:15)
[2018-06-26] MEDS: Cefdinir 300 MG CAP PO SCH (09:15)
[2018-06-26] MEDS: Metoclopramide HCl 10 MG TAB PO SCH ×3 (09:15→20:25)
--- NOTE | 2018-06-26 10:06 | PRG ---
DATE OF SERVICE: 06/26/2018 SUBJECTIVE: Patient was seen and examined at bedside and overnight events noted. Patient denies any shortness of breath or chest pain or palpitation. No history of nausea or vomiting or diarrhea or fever or chills or cramps. OBJECTIVE: GENERAL: This is a well-built male in no apparent distress. VITAL SIGNS: Temperature 98.3. Pulse 83. Respiratory rate 17. Blood pressure 159/79. HEENT: Atraumatic, normocephalic. Oral mucosa is moist NECK: Supple. CARDIOVASCULAR: S1, S2 heard. Rate and rhythm regular. RESPIRATORY: Clear to auscultation. GASTROINTESTINAL: Abdomen is soft. MUSCULOSKELETAL: No tenderness. No edema. DERMATOLOGIC: No skin rash. NEUROLOGIC: Alert and awake and oriented X3. No focal neurologic deficits. Moving all the extremities. PSYCHIATRIC: Mood and affect normal. LABORATORY DATA: Not done today. ASSESSMENT AND PLAN: 1. End-stage renal disease. Continue on hemodialysis Thursday, Thursday, and Thursday. 2. Edema. Remove fluid. 3. Hypertension. 4. Anemia. Continue dialysis as tolerated on Thursday, Thursday, and Thursday. Job ID: [id number]
--- NOTE | 2018-06-26 16:19 | PRG ---
DATE OF SERVICE: 06/26/2018 SUBJECTIVE: The patient has been more somnolent today per nursing. The patient will awaken and be appropriate and smiles appropriately, but tends to want to just go back to sleep. OBJECTIVE: VITAL SIGNS: His temperature is 100.3, pulse 85, respirations 16, O2 saturation 97% on room air, and blood pressure 159/81 up to 171/73. GENERAL APPEARANCE: The patient is somnolent, but not in any distress. Generally comfortable. HEART: Regular with a 2/6 murmur at the left upper sternal border, systolic in character. LUNGS: Generally clear, but not taking great breaths. ABDOMEN: Soft and nontender. EXTREMITIES: The right stump area has persistent erythema around the incision sites. [place] have been removed. It is slightly warm. There is no purulence. Blood cultures remain negative. Urine culture remains negative. IMPRESSION AND PLAN: 1. Possible cellulitis of the right lower extremity. The patient remains on vancomycin and oral cefdinir, had slight bump in his temperature curve. We will need to continue to follow that. He has already been evaluated by Wound Care and Surgery for this. Just a little concerning is a bit more somnolent with a bump in the temperature. 2. Toxic encephalopathy secondary to infection. The patient had apparently been getting better; although, he was never fully and completely oriented, but close to his baseline. Today, he is more somnolent. We will need to continue to watch closely. 3. Hypertension. The patient's home medications will be resumed as his blood pressure has been running somewhat high systolic side. 4. Hyperlipidemia. Resume statin. 5. Chronic kidney disease. Continue hemodialysis. 6. Chronic anemia secondary to renal disease. Job ID: [id number] [facility]
[2018-06-26] MEDS: HumaLOG 300 UNITS/3 ML VIAL SC PRN (18:30)
[2018-06-26] MEDS: Carvedilol 6.25 MG TAB PO SCH (20:24)
[2018-06-26] MEDS: Atorvastatin Calcium 20 MG TAB PO SCH (20:25)
[2018-06-27] MEDS: Levothyroxine Sodium 100 MCG TAB PO SCH (05:27)
[2018-06-27 07:09] LABS: #Eosinphils 0.3 thou/uL (0.0-0.7); #Monocytes 0.8 thou/uL (0.11-0.59); #Neutrophils 4.4 thou/uL (1.40-6.50); %Basophils 0.5 % (0.0-1.0); %Eosinophils 4.8 % (0.0-10.0); %Lymphocytes 15.4 % (21.0-51.0); %Monocytes 11.5 % (0.0-10.0); %Neutrophils 67.8 % (42.0-75.0); Hemoglobin 8.3 g/dL (14.0-18.0); Mean Corpuscular HGB CONC 30.5 g/dL (32.0-36.0); Mean Corpuscular Hemoglobin 29.2 pg (27.0-31.0); Mean Corpuscular Volume 95.9 fL (78.0-98.0); Mean Platelet Volume 7.9 fL (7.4-10.4); Platelet Count 179 thou/uL (130-400); RBC Distribution Width 14.5 % (11.5-14.5); Red Blood Cell (RBC) Count 2.85 mill/uL (4.70-6.10); White Blood Cell (WBC) Count 6.5 thou/uL (4.8-10.8)
[2018-06-27 07:28] LABS: Anion Gap 14 mmol/L (10-20); BUN (Urea Nitrogen) 37 mg/dL (8.4-25.7); Calc. Creatinine Clearance 10 mL/min (70-130); Calcium 8.9 mg/dL (7.8-10.44); Carbon Dioxide 31 mmol/L (23-31); Chloride 100 mmol/L (98-107); Estimated GFR-MDRD 8; Glucose 131 mg/dL (80-115); Potassium 4.1 mmol/L (3.5-5.1); Sodium 141 mmol/L (136-145)
[2018-06-27] MEDS: Clopidogrel Bisulfate 75 MG TAB PO SCH (09:50)
[2018-06-27] MEDS: Metoclopramide HCl 10 MG TAB PO SCH ×3 (09:50→22:13)
[2018-06-27] MEDS: Carvedilol 6.25 MG TAB PO SCH ×2 (09:50→22:12)
[2018-06-27] MEDS: Cefdinir 300 MG CAP PO SCH (09:50)
[2018-06-27] MEDS ORDERED: Sodium Chloride 0.9% 500 ML IVPB SCH ×2 (11:45→15:45)
--- NOTE | 2018-06-27 12:04 | PRG ---
DATE OF SERVICE: 06/27/2018 SUBJECTIVE: Notified by the nurse this morning, the patient's blood pressure had dropped. Typically, he has been running around 120s to 140s overnight. This morning, he is in the 80s systolic. He has lost IV access and it is very difficult to get a new IV, and although, nurses are working diligently now, the patient states he does not feel great, but is not able to be much more specific. He reports just a tiny bit of nausea, but reports he has no pain associated with his right stump. OBJECTIVE: VITAL SIGNS: Otherwise, T-max is 99.3, pulse 70s, O2 saturation 95% on room air. GENERAL APPEARANCE: The patient is awake and alert, much more so than he was yesterday. He is conversant. HEART: Regular with 2/6 murmur heard best at the apex. He is not tachycardic. LUNGS: Clear. ABDOMEN: Soft, nontender. Positive bowel sounds. EXTREMITIES: The right stump actually looks better today. There is less erythema. There is still some mild ecchymosis along the incision line, but no significant evidence of cellulitic changes or purulence at the moment. LABORATORY DATA: White count 6.5, hemoglobin 8.3, and platelets 179. Sodium 141, potassium 4.1, chloride 100, CO2 is 31, BUN 37, creatinine 6.57, glucose 131 and 255, calcium was 8.9. Blood cultures remain negative. IMPRESSION AND PLAN: 1. Possible cellulitis of the right lower extremity that actually looks significantly better today. He continues on vancomycin and oral cefdinir. He has not had any recurrence of his fever and appears to be looking better in general. 2. Toxic encephalopathy, thought to be due to infection, and the patient is much better today, much more awake and alert and appears to have normal cognition at the moment. 3. Hypotension. The patient has a history of baseline hypertension and his medications had originally been held. Those were continued starting yesterday evening, and this morning now, he is somewhat hypotensive. Trying to establish an IV, give him some fluids back as he did have fluid removed with dialysis on Thursday. I suspect the combination of the resumption of his home medicines for hypertension and then fluid removal have resulted in the hypotension. 4. Chronic kidney disease. Continuing Thursday, Thursday, and Josue dialysis. 5. Hyperlipidemia. Continuing statin. 6. Chronic anemia secondary to renal disease. The patient's current hemoglobin is inline with his recent values. If he does not rebound with some blood pressure, we may need to consider some blood at some point. Job ID: [id number]
[2018-06-27] MEDS: HumaLOG 300 UNITS/3 ML VIAL SC PRN ×2 (12:40→22:12)
--- NOTE | 2018-06-27 17:28 | PRG ---
DATE OF SERVICE: 06/27/2018 SUBJECTIVE: Patient was seen and examined at bedside and overnight events noted. Patient denies any shortness of breath or chest pain or palpitation. No history of nausea or vomiting or diarrhea or fever or chills or cramps. OBJECTIVE: GENERAL: This is a well-built male, in no apparent distress. VITAL SIGNS: Temperature 98.1. Heart rate 64. Respiratory rate 16. Blood pressure 101/52. HEENT: Atraumatic, normocephalic. Oral mucosa is moist NECK: Supple. CARDIOVASCULAR: S1, S2 heard. Rate and rhythm regular. RESPIRATORY: Clear to auscultation. GASTROINTESTINAL: Abdomen is soft. MUSCULOSKELETAL: No tenderness. No edema. DERMATOLOGIC: No skin rash. NEUROLOGIC: Alert and awake and oriented X3. No focal neurologic deficits. Moving all the extremities. PSYCHIATRIC: Mood and affect normal. LABORATORY DATA: Potassium is 4.1, BUN is 37, and creatinine is 6.5. ASSESSMENT AND PLAN: 1. End-stage renal disease. Continue on hemodialysis as tolerated. 2. Edema. Remove fluid. 3. Hypertension. 4. Anemia. Plan is to continue dialysis as tolerated. Job ID: [id number]
[2018-06-27] MEDS: Atorvastatin Calcium 20 MG TAB PO SCH (22:13)
[2018-06-28] MEDS: Levothyroxine Sodium 100 MCG TAB PO SCH (06:30)
[2018-06-28] MEDS: Carvedilol 6.25 MG TAB PO SCH (10:05)
[2018-06-28 10:56] LABS: Vancomycin, Random 6.3 ug/mL (See Comment)
[2018-06-28] MEDS: Epoetin (ESRD) 10,000 UNITS/ML VIAL IVP SCH (11:39)
[2018-06-28] MEDS: Cefdinir 300 MG CAP PO SCH (11:39)
[2018-06-28] MEDS: Metoclopramide HCl 10 MG TAB PO SCH ×2 (11:40→15:16)
[2018-06-28] MEDS: Clopidogrel Bisulfate 75 MG TAB PO SCH (11:40)
--- NOTE | 2018-06-28 12:54 | PRG ---
DATE OF SERVICE: 06/28/2018 SUBJECTIVE: This is a 68-year-old gentleman, being seen for end-stage renal disease. The patient denied any nausea, vomiting, or chest pain. OBJECTIVE: CONSTITUTIONAL: On examination, the patient is awake and alert. VITAL SIGNS: Afebrile, pulse 77, breathing 16, and blood pressure 125/57. GENERAL APPEARANCE AND MENTAL STATUS: Fair. HEAD/NECK: Normocephalic. Atraumatic. EYES: EOMI. No deformity. EARS: Clear. No ulcers. NOSE: Intact. No lesions. MOUTH: Clear. No discharge. THROAT: Clear. No exudate. LUNGS: Clear. No crackles. CARDIAC: S1, S2. No rub. ABDOMEN: Benign. Bowel sounds positive. GENITALIA/RECTUM: Osborne absent. BACK/EXTREMITIES: Edema 0+. NEUROLOGICAL: Alert and motor intact. LABORATORY DATA: Labs show hemoglobin 10.6. ASSESSMENT AND PLAN: 1. Stage 6 chronic kidney disease. Continue hemodialysis. 2. Hypertension, stable. 3. Anemia, stable. 4. Medications based on glomerular filtration rate are appropriate. Job ID: [id number]
[2018-06-28] MEDS: Vancomycin HCl 1 GM in Premix Bag 1 BAG IVPB SCH (13:15)
[2018-06-28 15:59] VITALS: TEMP 98.6
[2018-06-28 16:01] VITALS: BP 187/79
== END 2018-06-28 16:15 | DRG 871 ==
LOC: ERS 17:32 → 2SE 22:04
PROVIDERS: ADMIT Hospitalist; ATTEND Hospitalist
PROC: 5A1D70Z Performance of Urinary Filtration, Intermittent, Less than 6 Hours Per Day (ICD-10-PCS; principal; 2018-06-23)
DX: A41.9 Sepsis, unspecified organism (principal); N18.6 End stage renal disease; J69.0 Pneumonitis due to inhalation of food and vomit; G92 Toxic encephalopathy; I12.0 Hypertensive chronic kidney disease with stage 5 chronic kidney disease or end stage renal disease; E87.1 Hypo-osmolality and hyponatremia; N39.0 Urinary tract infection, site not specified; L03.115 Cellulitis of right lower limb; T87.43 Infection of amputation stump, right lower extremity; E11.51 Type 2 diabetes mellitus with diabetic peripheral angiopathy without gangrene; D63.1 Anemia in chronic kidney disease; E11.22 Type 2 diabetes mellitus with diabetic chronic kidney disease; Z99.2 Dependence on renal dialysis; E11.649 Type 2 diabetes mellitus with hypoglycemia without coma; E78.00 Pure hypercholesterolemia, unspecified; Z95.2 Presence of prosthetic heart valve; Z86.73 Personal history of transient ischemic attack (TIA), and cerebral infarction without residual deficits; E03.9 Hypothyroidism, unspecified; Z89.511 Acquired absence of right leg below knee; Z79.4 Long term (current) use of insulin; Z87.891 Personal history of nicotine dependence; Y83.5 Amputation of limb(s) as the cause of abnormal reaction of the patient, or of later complication, without mention of misadventure at the time of the procedure
CPT/HCPCS: 36415; 36416; 51701; 70450; 71045; 80048; 80061; 80202; 81003; 81015; 82140; 82550; 82805; 83605; 83690; 83880; 84443; 85007; 85025; 85027; 87040; 87086; 87340; 87804; 90935; 93005; 96365; C9113; G0257; J1650; J1956; J2405; J2543; J3370; J7050; J8597; Q0162; Q4081

== ENCOUNTER 2018-07-04 19:34 | Inpatient (IN) | payer MEDICARE ==
[2018-07-04 20:10] LABS: #Eosinphils 0.3 thou/uL (0.0-0.7); #Lymphocytes 0.8 thou/uL (1.20-3.40); #Monocytes 0.6 thou/uL (0.11-0.59); #Neutrophils 3.6 thou/uL (1.40-6.50); %Basophils 0.3 % (0.0-1.0); %Monocytes 11.3 % (0.0-10.0); %Neutrophils 68.4 % (42.0-75.0); Hemoglobin 7.1 g/dL (14.0-18.0); Mean Corpuscular HGB CONC 32.8 g/dL (32.0-36.0); Mean Corpuscular Hemoglobin 30.9 pg (27.0-31.0); Mean Corpuscular Volume 94.4 fL (78.0-98.0); Mean Platelet Volume 8.1 fL (7.4-10.4); Platelet Count 162 thou/uL (130-400); RBC Distribution Width 16.1 % (11.5-14.5); White Blood Cell (WBC) Count 5.3 thou/uL (4.8-10.8)
[2018-07-04 20:16] LABS: INR-International Normal Ratio 1.1; PTT 39.6 SEC (22.9-36.1); Prothrombin Time 14.5 SEC (12.0-14.7)
[2018-07-04 20:32] LABS: ALT (SGPT) 8 U/L (8-55); AST (SGOT) 10 U/L (5-34); Albumin 3.3 g/dL (3.4-4.8); Alkaline Phosphatase 108 U/L (40-150); Anion Gap 15 mmol/L (10-20); BUN (Urea Nitrogen) 88 mg/dL (8.4-25.7); Bilirubin, Total 0.4 mg/dL (0.2-1.2); Calc. Creatinine Clearance 0 mL/min (70-130); Carbon Dioxide 29 mmol/L (23-31); Chloride 95 mmol/L (98-107); Estimated GFR-MDRD 8; Glucose 206 mg/dL (80-115); Potassium 5.1 mmol/L (3.5-5.1); Protein, Total 6.3 g/dL (5.8-8.1); Sodium 134 mmol/L (136-145)
[2018-07-04 20:51] LABS: CKMB 1.5 ng/mL (0-6.6)
[2018-07-04 21:03] LABS: Bilirubin Large (Negative); Blood, Urine Large (Negative); Clarity TURBID (Clear); Glucose, Urine (Dipstick) 100 mg/dL (Negative); Leukocyte Large (Negative); Nitrite Positive (Negative); Protein, Urine (Dipstick) 300 mg/dL (Neg-Trace); Specific Gravity, Urine 1.018 (1.002-1.036)
[2018-07-04 21:04] LABS: RBC/HPF GREATER THAN 50-TNTC HPF (0-3)
[2018-07-04 21:07] LABS: Bacteria/HPF None Seen HPF (None Seen); Crystals/HPF None Seen HPF (Negative); Hyaline Casts/LPF 0-3 HYALINE CAST LPF (0-3 Hyaline); Squamous Epithelial 0-3 HPF (0-3); Yeast-All Forms None Seen HPF (None Seen)
[2018-07-04] MEDS ORDERED: Aspirin Chewable 81 MG TAB ONE (21:37)
--- NOTE | 2018-07-04 22:14 | CT ---
CT BRAIN: History: Patient with altered mental status. Right sided deficit. Date: 07-04-18 Comparison: 06-21-18 FINDINGS: Noncontrast enhanced CT images of the brain obtained and demonstrate an old left cerebellar areas of infarction unchanged since the previous exam. No evidence of acute intracranial masses, hemorrhages, strokes or contusions seen. Ventricles are of normal size. 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 No acute intracranial abnormalities seen. POS: [facility]
--- NOTE | 2018-07-04 22:16 | RAD ---
AP CHEST: History: Right sided deficit. Previous history of pneumonia. Date: 07-04-18 Comparison: 06-21-18 FINDINGS: AP chest demonstrates sternotomy wires seen. Cardiomegaly is noted. There is an area of airspace opacity in the right lung base compatible with an area of right lower lo be pneumonia or mass. No significant interval change is seen. Endovascular stent seen in the right upper extremity most compatible with right upper extremity dialy sis fistula. IMPRESSION: 1. Right lower lobe pneumonia or mass with continued airspace opacities seen, unchanged since the pre vious exam. 2. Cardiomegaly. 3. Pulmonary vascular congestion seen. POS: [facility]
[2018-07-04] MEDS ORDERED: Nitroglycerin 0.4 MG TAB (25 Tab Bottle) PO PRN (23:36)
[2018-07-04] MEDS ORDERED: Insulin Regular 300 UNITS/3 ML VIAL SC PRN (23:36)
[2018-07-04] MEDS ORDERED: Dextrose 5% in Water 1,000 ML IV PRN (23:36)
[2018-07-04] MEDS ORDERED: Dextrose 50% Abboject 50 ML SYRINGE SLOW IVP PRN (23:36)
[2018-07-04 23:38] LABS: Troponin I 0.035 ng/mL (< 0.028)
[2018-07-04] MEDS ORDERED: Calcium Carbonate 500 MG ChewTAB PO PRN (23:38)
[2018-07-04] MEDS ORDERED: Acetaminophen 325 MG TAB PO PRN (23:38)
[2018-07-04] MEDS ORDERED: Pantoprazole 40 MG VIAL IVP SCH (23:45)
--- NOTE | 2018-07-05 00:28 | HP ---
PRIMARY CARE PHYSICIAN: Dr. Smith. CHIEF COMPLAINT: Altered mentation. The patient was sent from inpatient rehabilitation. HISTORY OF PRESENT ILLNESS: The patient is a 68-year-old male, with coronary artery disease; hypertension; hyperlipidemia; diabetes mellitus type 2; end-stage renal disease, on hemodialysis; peripheral vascular disease; and history of transient ischemic attack on Plavix, who was brought in from inpatient rehabilitation due to altered mentation. The patient was found to have altered mentation around 6:30 p.m. while he was at the inpatient rehabilitation. He was discharged from this facility approximately 10 days ago. He was found to have garbled speech along with facial droop. His blood pressure at that time was 87/47. There was questionable right-sided weakness. These symptoms lasted for 20 to 30 minutes after which it improved per family report. Please note that the patient is Greenlandic-speaking only and understands little bit Mongolian. At the time of my evaluation, the patient is almost back to his baseline per family report. There is no facial drooping or weakness appreciated. In the emergency room, his initial vital signs showed temperature 98.9, respiration 16, pulse rate of 73, blood pressure of 120/55 with O2 saturation 99% on room air. He received 325 mg aspirin in the emergency room. He was found to have anemia with hemoglobin of 7.1. His hemoglobin 3 days ago was 8.1/9.5/8.3. He is currently receiving 1 unit of PRBC. The family denies any hematemesis melena or hematochezia. He developed hematuria after the straight catheterization in the emergency room for urinalysis sample. PAST MEDICAL HISTORY: 1. Hypertension. 2. Hyperlipidemia. 3. Coronary artery disease. 4. End-stage renal disease, on hemodialysis. 5. Diabetes mellitus type 2. 6. History of TIA and CVA. 7. 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 8. History of anemia secondary to gastritis with last EGD in January 2018. 9. Colon polyp with the last colonoscopy in January 2018. 10. Hypothyroidism. PAST SURGICAL HISTORY: 1. EGD, colonoscopy as discussed above. 2. Cardiac catheterization. 3. Dialysis access. ALLERGIES: NO KNOWN DRUG ALLERGIES. CURRENT MEDICATIONS: The patient was recently discharged to inpatient rehabilitation on; 1. PhosLo 1334 mg 3 times daily. 2. Carvedilol 12.5 mg b.i.d. 3. Glipizide 5 mg daily. 4. Insulin sliding scale. 5. Imdur ER 30 mg daily. 6. Lisinopril 5 mg daily. 7. Reglan 5 mg 3 times daily. 8. Omeprazole as needed. 9. Plavix 75 mg daily. 10. Levothyroxine 100 mcg daily. 11. Zocor 40 mg at bedtime. 12. Tramadol as needed. SOCIAL HISTORY: The patient is a former smoker. No current use of tobacco, alcohol, or drug use. He makes his own decision with the help of his family. FAMILY HISTORY: Negative for heart disease. REVIEW OF SYSTEMS: All other review of systems was reviewed and were found negative. PHYSICAL EXAMINATION: VITAL SIGNS: As discussed Above. GENERAL: A 68-year-old male, in no apparent distress. Mentation improved. HEENT: Head; atraumatic, normocephalic. Sclerae anicteric. Moist mucous membranes. No oral lesion. NECK: Supple. No JVD appreciated. No carotid bruit. LUNGS: Clear to auscultation bilaterally. No wheezing, rales, or rhonchi. HEART: S1, S2 present. Regular rate and rhythm. No rubs or gallops appreciated. ABDOMEN: Soft, nontender. Bowel sounds present. EXTREMITIES: No edema or calf tenderness. NEUROLOGY: Grossly nonfocal. Moves all 4 extremities. Power was 5/5 in all extremities. Sensation to touch was normal bilaterally. Limited examination for the cranial nerves was essentially normal range. PSYCHIATRY: Alert, awake, oriented x3. SKIN: Warm and dry. LYMPH NODES: No palpable lymph nodes in the neck. PERIPHERAL VASCULAR: Radial pulses palpable bilaterally. MUSCULOSKELETAL: No joint swelling or tenderness. LABORATORY FINDINGS: WBC 5.3 with hemoglobin 7.1, hematocrit 21.7, and platelets of 162. Chemistry showed sodium 134, potassium 5.1, chloride 95, BUN 88, creatinine 6.93. Troponin of 0.044. TSH was normal. Albumin 3.3. Urinalysis showed 7 to 10 wbc's with greater than 50 rbc's, nitrite positive. IMAGING STUDIES: Chest x-ray by my review was compatible with right lower lobe pneumonia without any new findings. Please note, the patient has completed antibiotics. CT scan of the brain by my review was negative for new infiltrate. It showed old left cerebellar infarction. EKG by my review showed ST-T wave changes in the lateral leads. IMPRESSION: 1. Toxic metabolic encephalopathy, multifactorial. 2. Suspected transient ischemic attack versus cerebrovascular accident. 3. Anemia probably secondary to renal insufficiency. There is no history of gastrointestinal blood loss. 4. End-stage renal disease, on hemodialysis. 5. Elevated troponin, probably secondary to demand ischemia/anemia. 6. Gross hematuria secondary to urine catheterization for urinalysis sample in the emergency room. 7. Coronary artery disease, status post stent placement. 8. Hypertension. 9. Hyperlipidemia. 10. Peripheral vascular disease, status post recent right [id number] amputation. 11. History of transient ischemic attack and cerebrovascular accident. 12. Diabetes mellitus type 2. 13. Hyponatremia. 14. Mild protein-calorie malnutrition. PLAN: The patient will be monitored in the Stroke Unit due to possible concern of transient ischemic attack. We will continue Plavix. We will get stool for occult blood. Agree with 1 unit of transfusion. Consult Nephrology for maintenance hemodialysis. Continue selected medications. IV Protonix twice a day. Recheck labs in a.m. Serial troponins. Plan of care was discussed with the patient and the family at the bedside. Job ID: [id number]
[2018-07-05 05:58] LABS: Hemoglobin 8.2 g/dL (14.0-18.0); Platelet Count 136 thou/uL (130-400)
[2018-07-05 06:23] LABS: Cardiac Risk 2.8 (Less than 4.5)
[2018-07-05 06:42] LABS: CKMB 1.4 ng/mL (0-6.6)
[2018-07-05] MEDS ORDERED: Iopamidol 370 76% 100 ML VIAL ONE (08:12)
[2018-07-05] MEDS: Pantoprazole 40 MG VIAL IVP SCH ×2 (09:30→21:31)
[2018-07-05] MEDS: Cyanocobalamin (Vitamin B-12) 1,000 MCG TAB PO SCH (09:30)
[2018-07-05] MEDS: Senokot S 8.6-50 MG TAB PO SCH ×2 (09:30→21:31)
[2018-07-05] MEDS: Clopidogrel Bisulfate 75 MG TAB PO SCH ×2 (09:30→18:38)
[2018-07-05] MEDS: Folic Acid 1 MG TAB PO SCH (09:30)
--- NOTE | 2018-07-05 14:11 | CON ---
DATE OF CONSULTATION: 07/05/2018 REASON FOR CONSULTATION: End-stage renal disease evaluation and care. REASON FOR ADMISSION: Altered mentation. HISTORY OF PRESENT ILLNESS: A 68-year-old male with history of coronary artery disease, hypertension, hyperlipidemia, type 2 diabetes, end-stage renal disease, on hemodialysis, came to the hospital with altered mentation. The patient was at inpatient rehab and was found to have confusion around 6:30 p.m. and was transferred over here. The patient continues dialysis on Thursday, Thursday, and Thursday and due for dialysis and was seen during dialysis. No nausea or vomiting. No chest pain. The patient does not remember any of the incident. PAST MEDICAL HISTORY: Positive for hypertension, hyperlipidemia, coronary artery disease, end-stage renal disease, type 2 diabetes, CVA, peripheral vascular disease, anemia, and hypothyroidism. PAST SURGICAL HISTORY: EGD, colonoscopy, cardiac cath, and dialysis access placement. MEDICATIONS: 1. PhosLo. 2. Carvedilol. 3. Glipizide. 4. Insulin. 5. Imdur. 6. Lisinopril. 7. Reglan. 8. Omeprazole. 9. Plavix. 10. Levothyroxine. 11. Zocor. 12. Tramadol. ALLERGIES: NO KNOWN DRUG ALLERGIES. SOCIAL HISTORY: No smoking, alcohol, or illicit drug abuse. FAMILY HISTORY: No history of any kidney disease. REVIEW OF SYSTEMS: CONSTITUTIONAL: Negative for weight loss or gain, ability to conduct usual activities. SKIN: Negative for rash, itching. EYES: Negative for double vision, pain. ENT/MOUTH: Negative for nose bleeding, neck stiffness, pain, tenderness. CARDIOVASCULAR: Negative for palpitations, dyspnea on exertion, orthopnea. RESPIRATORY: Negative for shortness of breath, wheezing, cough, hemoptysis, fever or night sweats. GASTROINTESTINAL: Negative for poor appetite, abdominal pain, heartburn, nausea, vomiting, constipation, or diarrhea. GENITOURINARY: Negative for urgency, frequency, dysuria, nocturia. MUSCULOSKELETAL: Negative for pain, swelling. NEUROLOGIC/PSYCHIATRIC: Negative for anxiety, depression. ALLERGY/IMMUNOLOGIC: Negative for skin rash, bleeding tendency. PHYSICAL EXAMINATION: GENERAL: Reveals a well-built male, in no apparent distress. VITAL SIGNS: Temperature 97.9, pulse 59, respiratory rate 18, blood pressure 130/59. HEENT: Atraumatic, normocephalic. Oral mucosa is moist. NECK: Supple. CARDIOVASCULAR: S1, S2 heard. Rate and rhythm regular. RESPIRATORY: Clear. GASTROINTESTINAL: Abdomen is soft. MUSCULOSKELETAL: +1 edema. DERMATOLOGIC: No skin rash. NEUROLOGIC: Alert and awake. PSYCHIATRIC: Mood and affect normal. LABORATORY DATA: Hemoglobin is 8.2. Potassium 5.1, BUN is 88, creatinine is 6.9 ASSESSMENT AND PLAN: 1. End-stage renal disease. Plan is to have dialysis today. The patient was seen during dialysis, tolerating well. 2. Mild hyperkalemia. Limit potassium. 3. Hypernatremia. Limit fluid intake. 4. Anemia. We will Epogen. 5. Edema, controlled. 6. Hypertension, stable. 7. Altered mentation. We will have dialysis. Plan is to have dialysis today. Add Epogen. We will continue to monitor. Job ID: [id number]
--- NOTE | 2018-07-05 16:24 | ULT ---
CAROTID ULTRASOUND WITH GRAYSCALE AND DOPPLER DUPLEX COLORFLOW IMAGING SPECTRAL ANALYSIS PERFORMED: COMPARISON: 09/30/2016 FINDINGS: There is scattered moderate atherosclerotic calcification of the carotid arteries. PEAK SYSTOLIC VELOCITY (CM/S): Right CCA 90 Left CCA 131 Right ICA 237 Left ICA 125 There is antegrade bilateral flow within the visualized bilateral vertebral arteries. IMPRESSION: 1. Severe stenosis of the right internal carotid artery. 2. Moderate stenosis of the left internal carotid artery. POS: EDGAR
--- NOTE | 2018-07-05 17:44 | PDOC.PN ---
- Subjective Encounter Start Date: 07/05/18 Encounter Start Time: 15:43 Subjective: Patient found resting comfortably. Does not recall what brought him in. -: No family with him at present. He lives with his daughter and states he -: has been managing well at home. Denies any pain. No complaints. - Objective Resuscitation Status - Order Detail: 07/04/18 23:38 Resuscitation Status Routine Resuscitation Status: FULL: Full Resuscitation Vital Signs & Weight: Vital Signs (12 hours) Temp Pulse Pulse Pulse Resp BP BP 07/05/18 16:26 07/05/18 16:16 73 74 161/70 H 168/73 H 07/05/18 16:00 96.2 F L 71 16 07/05/18 07:00 97.9 F 59 L 16 BP Pulse Ox 07/05/18 16:26 161/70 H 07/05/18 16:16 07/05/18 16:00 178/73 H 07/05/18 07:00 135/59 L 95 Weight Weight 142 lb 15.869 oz I&O: 07/04/18 07/05/18 07/06/18 06:59 06:59 06:59 Intake Total 120 Output Total 0 Balance 120 Result Diagrams: 07/05/18 05:25 07/04/18 20:01 Additional Labs: Accuchecks 07/05/18 07/05/18 07/05/18 17:03 05:56 00:11 POC Glucose 155 H 92 174 H Phys Exam - Physical Examination Constitutional: NAD HEENT: PERRLA, moist MMs, oral pharynx no lesions Neck: supple, full ROM Respiratory: clear to auscultation bilateral Cardiovascular: RRR Gastrointestinal: soft, non-tender, no distention, positive bowel sounds Musculoskeletal: pulses present s/p right below-knee amputation Neurological: non-focal, normal sensation Psychiatric: normal affect, A&O x 3 Skin: no rash Dx/Plan (1) Altered mental status Code(s): R41.82 - ALTERED MENTAL STATUS, UNSPECIFIED Status: Resolved Plan: Due to encephalopathy vs. TIA/Stroke. CT Head negative. Awaiting MRI Brain and CTA Head/Neck, Carotid US and ECHO. Awaiting Neurology consult. (2) Hypothyroidism Code(s): E03.9 - HYPOTHYROIDISM, UNSPECIFIED Status: Acute Comment: Resume home meds. (3) DM type 2 (diabetes mellitus, type 2) Status: Chronic Qualifiers: Diabetes mellitus senior living insulin use: with terminal system operator use Diabetes mellitus complication status: with kidney complications Chronic kidney disease stage: on chronic dialysis Comment: controlled (4) ESRD (end stage renal disease) on dialysis Code(s): N18.6 - END STAGE RENAL DISEASE; Z99.2 - DEPENDENCE ON RENAL DIALYSIS Status: Chronic Comment: HD per Renal service - Plan cont current plan of care * . Review of Systems - Review of Systems Constitutional: negative: fever, chills, sweats, weakness, malaise, other Eyes: negative: Pain, Vision Change, Conjunctivae Inflammation, Eyelid Inflammation, Redness ENT: negative: Ear Pain, Ear Discharge, Nose Pain, Nose Discharge, Nose Congestion, Mouth Pain, Mouth Swelling, Throat Pain, Throat Swelling Respiratory: negative: Cough, Dry, Shortness of Breath, Hemoptysis, SOB with Excertion, Pleuritic Pain, Sputum, Wheezing Cardiovascular: negative: chest pain, palpitations, orthopnea, paroxysmal nocturnal dyspnea, edema, light headedness Gastrointestinal: negative: Nausea, Vomiting, Abdominal Pain, Diarrhea, Constipation, Melena, Hematochezia Genitourinary: negative: Dysuria, Frequency, Incontinence, Hematuria, Retention Musculoskeletal: negative: Neck Pain, Shoulder Pain, Arm Pain, Back Pain, Hand Pain, Leg Pain, Foot Pain Skin: negative: Rash, Lesions, Ernie, Bruising Neurological: Confusion (AMS at presentation, resolved. patient doesnt recall being unwell). negative: Weakness, Numbness, Incoordination, Change in Speech, Seizures - Medications/Allergies Allergies/Adverse Reactions: Allergies Allergy/AdvReac Type Severity Reaction Status Date / Time cheese Allergy Verified 06/09/18 19:50 Medications: Current Medications Acetaminophen (Tylenol) 650 mg PO Q4H PRN PRN Reason: Headache/Fever/Mild Pain (1-3) Calcium Carbonate (Tums) 1,000 mg PO Q4H PRN PRN Reason: Heartburn or Indigestion Clopidogrel Bisulfate (Plavix) 75 mg PO DAILY [facility] Last Admin: 07/05/18 09:30 Dose: Not Given Cyanocobalamin (Vitamin B-12) 1,000 mcg PO DAILY [facility] Last Admin: 07/05/18 09:30 Dose: Not Given Dextrose/Water (Dextrose 50%) 25 gm SLOW IVP PRN PRN PRN Reason: Hypoglycemia Epoetin Lance (Procrit) 10,000 units IVP MoWe [facility] Folic Acid (Folvite) 1 mg PO DAILY [facility] Last Admin: 07/05/18 09:30 Dose: Not Given Glucagon (Glucagon) 1 mg IM PRN PRN PRN Reason: Hypoglycemia Dextrose/Water (D5w) 1,000 mls @ 0 mls/hr IV .Q0M PRN PRN Reason: Hypoglycemia Insulin Human Regular (Humulin R) 0 units SC .MILD SLIDING SCALE PRN PRN Reason: Mild Correctional Scale Insulin Human Regular (Humulin R) 0 units SC .BEDTIME SLIDING SC PRN PRN Reason: Bedtime Correctional Scale Nitroglycerin (Nitrostat) 0.4 mg PO Q5MIN PRN PRN Reason: Chest Pain Pantoprazole Sodium (Protonix) 40 mg IVP Q12HR [facility] Last Admin: 07/05/18 09:30 Dose: Not Given Senna/Docusate Sodium (Senokot S) 1 tab PO BID [facility] Last Admin: 07/05/18 09:30 Dose: Not Given Sodium Chloride (Flush - Normal Saline) 10 ml IVF PRN PRN PRN Reason: Saline Flush Sodium Chloride (Normal Saline Pf) 10 ml FS PRN PRN PRN Reason: RECONSTITUTION
[2018-07-05] MEDS: Epoetin (ESRD) 10,000 UNITS/ML VIAL IVP SCH (18:37)
--- NOTE | 2018-07-05 20:41 | CT ---
NONCONTRAST HEAD CT POST CONTRAST HEAD CT CT ANGIOGRAM OF THE HEAD AND NECK: History: Altered mental status. Transient ischemic attack. Comparison: Noncontrast head CT 07-04-18. FINDINGS: NONCONTRAST HEAD CT: Stable volume loss in the left and to a lesser extent right cerebellar hemisphere due to remote insul t. No parenchymal hemorrhage. No extraaxial hematoma. Cerebral cortical mirza white matter differentia tion is preserved. Calvarium is intact. Adequate aeration of the sinuses and mastoid air cells. POST CONTRAST HEAD CT: No pathologic enhancement of the brain parenchyma. Bilateral ocular lens implants are appropriately located. Both globes are intact. Retrobulbar fat is preserved. Symmetric attenuation of the optic nerves and ocular rectus muscles. Aerodigestive tract is patent. There is no mucosal abnormality. Epiglottis has a normal caliber. Epig lottic fat is preserved. Symmetric attenuation of the parotid and submandibular glands. Symmetric att enuation of the carotid mastoid muscles. No evidence of lymphadenopathy by NASCET criteria. Varying degrees of central canal stenosis and foraminal narrowing on the basis of the degenerative ch manuel. Upper mediastinum is incompletely evaluated. There does appear to be increased vascular density in th e subcarinal region as well as right hilum. Possibility of lymphadenopathy cannot be excluded. There are changes in the right upper lobes which are similar to the previous examination (CT from 01-08-17). CT ANGIOGRAM: There is atherosclerosis of the visualized aortic arch. Right carotid: Right carotid artery origin has appropriate enhancement and luminal diameter. The righ t common carotid artery has appropriate enhancement and luminal diameter. There is ulceration with en hancement involving the right carotid bifurcation measuring 4 mm. There is approximately 60% of steno sis (moderate). Left carotid: The left carotid artery origin has appropriate enhancement and luminal diameter. There is lack of enhancement involving the left carotid bifurcation and proximal most left internal carotid artery. There is some enhancement in the proximal to mid segment and a string sign in the mid to dis corey left internal carotid artery. Both subclavian arteries are patent. Right vertebral artery is dominant and patent. There is interspersed, likely chronic occlusion of th e cervical left vertebral artery. CT ANGIOGRAM OF THE HEAD: Decreased enhancement and luminal diameter of the intracranial left internal carotid artery. Right in ternal carotid artery is patent. Both A1 and M1 segments have patency. The left M1 segment is slightl y diminutive when compared to the contralateral side. Proximal MCA branches are unremarkable. Both vertebral arteries supply normal appearing basilar artery. The left and right P1 segments have s ymmetric enhancement and luminal diameter. IMPRESSION: 1. Intermittent occlusion of the left internal carotid artery, cervical portion, at the level of bifu rcation and proximal internal carotid artery, as well as the mid to distal left internal carotid gloria ry. Consultation with cardiovascular surgery for possible carotid endarterectomy is recommended. 2. Moderate stenosis involving the right carotid artery. 3. Possible mass in the right hilum and subcarinal regions. POS: EDGAR
[2018-07-05] MEDS: Sodium Chloride 0.9% (PF) 10 ML VIAL FS PRN (21:31)
[2018-07-06] MEDS ORDERED: Sodium Chloride 0.9% 10 ML ONE (08:19)
[2018-07-06] MEDS: Cyanocobalamin (Vitamin B-12) 1,000 MCG TAB PO SCH (09:32)
[2018-07-06] MEDS: Clopidogrel Bisulfate 75 MG TAB PO SCH (09:32)
[2018-07-06] MEDS: Sodium Chloride 0.9% (PF) 10 ML VIAL FS PRN (09:32)
[2018-07-06] MEDS: Pantoprazole 40 MG VIAL IVP SCH ×2 (09:32→20:44)
[2018-07-06] MEDS: Folic Acid 1 MG TAB PO SCH (09:32)
[2018-07-06] MEDS: Senokot S 8.6-50 MG TAB PO SCH ×2 (09:33→20:44)
[2018-07-06] MEDS ORDERED: Carvedilol 6.25 MG TAB PO ONE (10:15)
--- NOTE | 2018-07-06 12:14 | MRI ---
MRI BRAIN WITHOUT CONTRAST: HISTORY: Altered mental status. Evaluate for stroke. COMPARISON: 10/01/2016 FINDINGS: Limited evaluation due to motion degradation. There is no hemorrhage on the axial gradient echo sequence. Hemosiderin deposition in the right cere bellar hemisphere. The calvarium has a normal marrow signal intensity. Midline brain parenchymal structures are unremar kable. There is age appropriate atrophy. Cerebral cortical mirza white matter differentiation is preserved. No evidence of hydrocephalus. Malacic and gliotic changes in the left occipital lobe. Decreased flow void in the left internal carotid artery, compatible with narrowing and occlusion of t he left internal carotid artery. No evidence of left or right cerebral infarct. Adequate aeration of the sinuses and mastoid air cells. IMPRESSION: 1. Absent restricted diffusion. No acute infarct. 2. Narrowing and significant stenosis/occlusion of the left internal carotid artery. CT angiogram pe rformed yesterday did demonstrate flow in the left internal carotid artery. POS: EDGAR
[2018-07-06] MEDS: Insulin Regular 300 UNITS/3 ML VIAL SC PRN ×2 (12:51→18:41)
--- NOTE | 2018-07-06 14:30 | PDOC.PN ---
- Subjective Encounter Start Date: 07/06/18 Encounter Start Time: 14:28 Subjective: Patient feeling well and without complaints at present. -: No issues overnight. Denies any n/v or ISABEL. No dizziness. Denies any cp/sob. -: No abdominal pain. Tolerating oral intake. Denies any fevers or sweats. - Objective Resuscitation Status - Order Detail: 07/04/18 23:38 Resuscitation Status Routine Resuscitation Status: FULL: Full Resuscitation Vital Signs & Weight: Vital Signs (12 hours) Temp Pulse Resp BP BP Pulse Ox 07/06/18 12:00 97.6 F 56 L 16 164/69 H 07/06/18 10:43 142/63 H 07/06/18 08:00 97.6 F 63 16 173/74 H 96 07/06/18 04:00 97.6 F 56 L 20 132/63 100 Weight Weight 137 lb 14.259 oz I&O: 07/05/18 07/06/18 07/07/18 06:59 06:59 06:59 Intake Total 120 490 Output Total 0 0 Balance 120 490 Result Diagrams: 07/05/18 05:25 07/04/18 20:01 Additional Labs: Accuchecks 07/06/18 07/06/18 07/05/18 11:39 05:13 20:17 POC Glucose 213 H 68 L 365 H 07/05/18 17:03 POC Glucose 155 H Phys Exam - Physical Examination Constitutional: NAD HEENT: PERRLA, sclera anicteric, oral pharynx no lesions Neck: supple, full ROM Respiratory: clear to auscultation bilateral Cardiovascular: RRR Gastrointestinal: soft, non-tender, no distention, positive bowel sounds Musculoskeletal: no edema Right BKA, one stable in place, wound healing, no discharge/erythema Psychiatric: normal affect, A&O x 3 Skin: no rash, normal turgor Dx/Plan (1) Altered mental status Code(s): R41.82 - ALTERED MENTAL STATUS, UNSPECIFIED Status: Resolved Plan: S/p CTA head and Carotid US. Severe stenosis of Rt ICA and moderate stenosis of Left ICA. Awaiting CV Surgery review. Awaiting MRI brain. (2) Hypothyroidism Code(s): E03.9 - HYPOTHYROIDISM, UNSPECIFIED Status: Chronic Comment: Resume home meds. (3) DM type 2 (diabetes mellitus, type 2) Status: Chronic Qualifiers: Diabetes mellitus jail insulin use: with manager long term care use Diabetes mellitus complication status: with kidney complications Chronic kidney disease stage: on chronic dialysis Comment: controlled (4) ESRD (end stage renal disease) on dialysis Code(s): N18.6 - END STAGE RENAL DISEASE; Z99.2 - DEPENDENCE ON RENAL DIALYSIS Status: Chronic Comment: HD per Renal service - Plan cont current plan of care * .
--- NOTE | 2018-07-06 17:23 | CON ---
DATE OF CONSULTATION: 07/06/2018 CONSULTING PHYSICIAN: Hospitalist Service. IMPRESSION: 1. Transient ischemic attack. 2. High-grade left internal carotid stenosis. 3. Right 60% stenosis. PLAN: 1. Vascular Surgery opinion on the left carotid. 2. Add aspirin. HISTORY OF PRESENT ILLNESS: Mr. Ziyad Bowers is a 68-year-old man with history of anemia; coronary artery disease; hypertension; diabetes; hyperlipidemia; end-stage renal disease, on dialysis; and peripheral vascular disease, who presented with transient facial droop and dysarthria, which lasted about 20 minutes according to the records. The patient does not have any memory of the event. His workup revealed evidence of the carotid disease. Vascular Surgery has been consulted. The patient was taking Plavix prior to admission. PAST MEDICAL HISTORY: As listed above. ALLERGIES: CHEESE. SOCIAL HISTORY: No tobacco use. FAMILY HISTORY: Noncontributory. MEDICATIONS: Medication list was reviewed. REVIEW OF SYSTEMS: Otherwise, unremarkable. PHYSICAL EXAMINATION: GENERAL: He is well-nourished elderly man, in no distress. VITAL SIGNS: Blood pressure 150/65, pulse 60, respirations 20, and he is afebrile. HEENT: Pupils are equal. Conjunctivae clear. Oropharynx clear. NECK: Supple. No lymphadenopathy. EXTREMITIES: There is a right BKA. No edema is present. NEUROLOGIC: He was alert and cooperative. His speech is fluent and clear. Cranial nerves were intact. Motor exam showed good strength in the upper extremities. Sensation was intact to light touch. No tremor or asterixis was noted. Gait is not testable. IMAGING DATA: EKG shows normal sinus rhythm. SUMMARY: This is an elderly male with multiple medical problems, who presented with a TIA. He has high-grade stenosis on the left, which can hopefully be addressed by Vascular Surgery. Otherwise, increasing his antiplatelet therapy with aspirin would be reasonable. Job ID: [id number]
--- NOTE | 2018-07-06 18:17 | PRG ---
DATE OF SERVICE: 07/06/2018 SUBJECTIVE: Patient was seen and examined at bedside and overnight events noted. Patient denies any shortness of breath or chest pain or palpitation. No history of nausea or vomiting or diarrhea or fever or chills or cramps. OBJECTIVE: GENERAL: This is a well-built male, in no apparent distress. VITAL SIGNS: Temperature 97.3. Pulse 57. Respiratory rate 18. Blood pressure 139/53. HEENT: Atraumatic, normocephalic. Oral mucosa is moist NECK: Supple. CARDIOVASCULAR: S1, S2 heard. Rate and rhythm regular. RESPIRATORY: Clear to auscultation. GASTROINTESTINAL: Abdomen is soft. MUSCULOSKELETAL: No tenderness. No edema. DERMATOLOGIC: No skin rash. NEUROLOGIC: Alert and awake and oriented X3. No focal neurologic deficits. Moving all the extremities. PSYCHIATRIC: Mood and affect normal. LABORATORY DATA: Not done. ASSESSMENT AND PLAN: 1. End-stage renal disease. Continue on hemodialysis Thursday, Thursday, and Thursday. 2. Hyperkalemia. 3. Anemia. 4. Edema. 5. Hypertension. Continue dialysis on Thursday, Thursday, and Thursday as tolerated. Job ID: [id number]
--- NOTE | 2018-07-06 20:28 | CON ---
DATE OF CONSULTATION: HISTORY OF PRESENT ILLNESS: This is a 68-year-old gentleman with end-stage renal disease on chronic hemodialysis, who recently underwent a right below-knee amputation for peripheral vascular disease and was at rehab unit when he experienced some confusion, perhaps some speech difficulties and facial droop. However, upon presenting to the hospital, symptoms had resolved. He had stable vital signs in the emergency room with a hemoglobin of 7. Workup included carotid ultrasonography showing some elevated velocities in the right internal carotid artery up to 237 cm/second. He had an MRI showing no obvious stroke in the brain and a CT angiogram showing a severely and diffusely diseased left internal carotid artery, a string sign with about a 60% to 70% stenosis at the origin of the right internal carotid artery. PAST MEDICAL HISTORY: Includes ESRD, hypertension, dyslipidemia, coronary artery disease status post aortic valve replacement, diabetes type 2, peripheral vascular disease, and chronic anemia as well as hypothyroidism. PAST SURGICAL HISTORY: Includes the previously noted aortic valve replacement with a Maze procedure and left atrial appendage ligation in 2016, aortogram and bilateral lower extremity runoff with FORESTRY SUPPORT SPECIALIST of the right SFA and popliteal in May of 2018 and a right [id number] amputation in 2019. PHYSICAL EXAMINATION: GENERAL: On examination, he is alert and cooperative gentleman with no neurologic deficits at this time. HEART: He has a regular rate and rhythm with a soft systolic murmur. LUNGS: Clear lungs bilaterally. EXTREMITIES: No edema in his left leg and his right leg is surgically absent below the knee. IMPRESSIO AND PLAN: At this time, the internal carotid artery on the left has a string sign and non-reconstructible and the right internal carotid artery could be considered for eventual right carotid endarterectomy, but would like to let him get over his current surgical procedures and get back to baseline before this would be considered. Would allow some permissive hypertension, avoiding hypotension given the carotid artery disease and continue the aspirin and Plavix. Job ID: [id number]
[2018-07-06] MEDS: Carvedilol 6.25 MG TAB PO SCH (20:43)
[2018-07-06] MEDS: Gabapentin 100 MG CAP PO SCH (20:44)
[2018-07-07] MEDS: Levothyroxine Sodium 100 MCG TAB PO SCH (05:45)
[2018-07-07] MEDS: glipiZIDE 5 MG TAB PO SCH (09:31)
[2018-07-07] MEDS: Atorvastatin Calcium 20 MG TAB PO SCH (09:31)
[2018-07-07] MEDS: Cyanocobalamin (Vitamin B-12) 1,000 MCG TAB PO SCH (09:31)
[2018-07-07] MEDS: Gabapentin 100 MG CAP PO SCH ×2 (09:31→21:47)
[2018-07-07] MEDS: Clopidogrel Bisulfate 75 MG TAB PO SCH (09:31)
[2018-07-07] MEDS: Senokot S 8.6-50 MG TAB PO SCH ×2 (09:31→21:48)
[2018-07-07] MEDS: Carvedilol 6.25 MG TAB PO SCH ×2 (09:31→21:47)
[2018-07-07] MEDS: Pantoprazole 40 MG VIAL IVP SCH ×2 (09:32→21:48)
[2018-07-07] MEDS: Lisinopril 5 MG TAB PO SCH (09:32)
[2018-07-07] MEDS: Folic Acid 1 MG TAB PO SCH (09:32)
[2018-07-07] MEDS: Sodium Chloride 0.9% (PF) 10 ML VIAL FS PRN (09:32)
[2018-07-07] MEDS: Insulin Regular 300 UNITS/3 ML VIAL SC PRN (12:10)
--- NOTE | 2018-07-07 14:07 | PDOC.PN ---
- Subjective Encounter Start Date: 07/07/18 Encounter Start Time: 07:28 Subjective: Patient found resting comfortably. Without any complaints. -: States he did well overnight. No sob or CP. No headaches. -: Denies any n/v. No abdominal pain. Tolerating oral intake. Patient has not major discomfort at wound site of right leg, s/p BKA. States he was undergoing evaluation for inpatient rehab when he was transferred here for work up of his AMS. He has had no further episodes throughout this hospitalization. - Objective Resuscitation Status - Order Detail: 07/04/18 23:38 Resuscitation Status Routine Resuscitation Status: FULL: Full Resuscitation Vital Signs & Weight: Vital Signs (12 hours) Temp Pulse Pulse Pulse Resp BP BP 07/07/18 11:24 98 F 60 17 07/07/18 10:16 67 66 140/66 122/58 L 07/07/18 09:32 60 07/07/18 08:00 07/07/18 07:27 98.9 F 60 16 07/07/18 04:00 98.2 F 62 16 BP Pulse Ox 07/07/18 11:24 114/54 L 98 07/07/18 10:16 07/07/18 09:32 07/07/18 08:00 96 07/07/18 07:27 131/62 96 07/07/18 04:00 141/66 H 96 Weight Weight 137 lb 8 oz I&O: 07/06/18 07/07/18 07/08/18 06:59 06:59 06:59 Intake Total 490 250 480 Output Total 0 Balance 490 250 480 Result Diagrams: 07/05/18 05:25 07/04/18 20:01 Additional Labs: Accuchecks 07/07/18 07/07/18 07/06/18 10:46 05:22 20:21 POC Glucose 255 H 134 H 225 H 07/06/18 17:39 POC Glucose 272 H Phys Exam - Physical Examination Constitutional: NAD HEENT: PERRLA, oral pharynx no lesions Neck: supple, full ROM Respiratory: clear to auscultation bilateral Cardiovascular: RRR Gastrointestinal: soft, non-tender, no distention Musculoskeletal: no edema In left lower leg, Rt BKA with healing wound. no erythema/swelling/warmth Psychiatric: normal affect, A&O x 3 Skin: no rash Dx/Plan (1) Altered mental status Code(s): R41.82 - ALTERED MENTAL STATUS, UNSPECIFIED Status: Resolved Plan: No further episodes during his admission. Seen by [facility] Surgery due to high-grade stenosis of left ICA and mod stenosis of right ICA. For possible consideration of right carotid endarterectomy, however this would be pending his recovery from most recent surgery. Advised to continue Plavix and Aspirin, allow for permissible HTN, given degree of stenosis. Seen by Dr. Ramírez who also advised to continue aspirin. (2) Hypothyroidism Code(s): E03.9 - HYPOTHYROIDISM, UNSPECIFIED Status: Chronic Comment: Resume home meds. (3) DM type 2 (diabetes mellitus, type 2) Status: Chronic Qualifiers: Diabetes mellitus halfway insulin use: with halfway use Diabetes mellitus complication status: with kidney complications Chronic kidney disease stage: on chronic dialysis Comment: controlled (4) ESRD (end stage renal disease) on dialysis Code(s): N18.6 - END STAGE RENAL DISEASE; Z99.2 - DEPENDENCE ON RENAL DIALYSIS Status: Chronic Comment: HD per Renal service - Plan cont current plan of care Patient due for HD today. -: Has been doing well otherwise. -: No surgical intervention at this present time. -: Patient likely for discharge, pending PT/OT eval and rehab screening. -: He will need rehab given recent BKA. * .
[2018-07-07] MEDS ORDERED: Aspirin 81 mg Enteric Coated Tablet PO SCH (14:15)
[2018-07-07 14:43] VITALS: BMI 24.3
[2018-07-07 17:16] LABS: #Basophils 0.1 thou/uL (0.0-0.2); #Eosinphils 0.3 thou/uL (0.0-0.7); #Lymphocytes 0.9 thou/uL (1.20-3.40); #Monocytes 0.7 thou/uL (0.11-0.59); %Basophils 1.1 % (0.0-1.0); %Eosinophils 5.7 % (0.0-10.0); %Lymphocytes 14.8 % (21.0-51.0); %Monocytes 11.2 % (0.0-10.0); %Neutrophils 67.3 % (42.0-75.0); Hemoglobin 7.8 g/dL (14.0-18.0); Mean Corpuscular HGB CONC 31.5 g/dL (32.0-36.0); Mean Corpuscular Hemoglobin 29.9 pg (27.0-31.0); Mean Corpuscular Volume 94.6 fL (78.0-98.0); Mean Platelet Volume 8.6 fL (7.4-10.4); Platelet Count 154 thou/uL (130-400); RBC Distribution Width 16.6 % (11.5-14.5); Red Blood Cell (RBC) Count 2.61 mill/uL (4.70-6.10); White Blood Cell (WBC) Count 5.9 thou/uL (4.8-10.8)
--- NOTE | 2018-07-07 17:33 | PRG ---
DATE OF SERVICE: 07/07/2018 SUBJECTIVE: Patient was seen and examined at bedside and overnight events noted. Patient denies any shortness of breath or chest pain or palpitation. No history of nausea or vomiting or diarrhea or fever or chills or cramps. OBJECTIVE: GENERAL: This is a well-built male, in no apparent distress. VITAL SIGNS: Temperature 98.0. Pulse 60. Respiratory rate 18. Blood pressure 114/54. HEENT: Atraumatic, normocephalic. Oral mucosa is moist NECK: Supple. CARDIOVASCULAR: S1, S2 heard. Rate and rhythm regular. RESPIRATORY: Clear to auscultation. GASTROINTESTINAL: Abdomen is soft. MUSCULOSKELETAL: No tenderness. No edema. DERMATOLOGIC: No skin rash. NEUROLOGIC: Alert and awake and oriented X3. No focal neurologic deficits. Moving all the extremities. PSYCHIATRIC: Mood and affect normal. LABORATORY DATA: There are no labs noted. ASSESSMENT AND PLAN: 1. End-stage renal disease. Continue on dialysis Thursday, Thursday, and Thursday. 2. Hyperkalemia. Limit potassium intake. 3. Anemia. 4. Edema. 5. Hypertension. Plan is to continue dialysis on Thursday, Thursday, and Thursday as tolerated. Job ID: [id number]
[2018-07-07 17:35] LABS: Anion Gap 14 mmol/L (10-20); BUN (Urea Nitrogen) 54 mg/dL (8.4-25.7); Calc. Creatinine Clearance 9 mL/min (70-130); Calcium 8.3 mg/dL (7.8-10.44); Carbon Dioxide 27 mmol/L (23-31); Chloride 95 mmol/L (98-107); Estimated GFR-MDRD 8; Potassium 4.9 mmol/L (3.5-5.1); Sodium 131 mmol/L (136-145)
[2018-07-07 17:44] LABS: Glucose 58 mg/dL (80-115)
--- NOTE | 2018-07-07 18:38 | PRG ---
DATE OF SERVICE: 07/07/2018 SUBJECTIVE: Jose Ramon Bowers is a 68-year-old male, status post recent, 06/10/2018, right below-knee amputation for PAD, ischemic foot. He has been in rehab. He experienced a TIA, transferred to the hospital, has string sign in one carotid artery and high-grade stenosis in other. Dr. Ramírez has seen the patient. Dr. Brice has seen the patient. The patient may be considered for a left carotid endarterectomy in the near future after stabilization. I have been asked to see him regarding his right BKA wound. He has most of his huyen removed. A few huyen remain. There is some granulation tissue of the stump, but overall is fairly well healed. There is a superficial wound medially, for which I will ask Wound Care to see it. It is approximately about 2 cm x 2 cm. They can wash this area with soap and water and place a wet-to-dry dressing. The patient should see me in my office in probably about 2 weeks. He will need a daily to every other day wound care as per Wound Care's recommendations. Job ID: [id number]
[2018-07-08] MEDS: Epoetin (ESRD) 10,000 UNITS/ML VIAL IVP SCH (05:57)
[2018-07-08] MEDS: Levothyroxine Sodium 100 MCG TAB PO SCH (05:57)
[2018-07-08] MEDS: Pantoprazole 40 MG VIAL IVP SCH ×2 (08:58→21:34)
[2018-07-08] MEDS: Lisinopril 5 MG TAB PO SCH (08:58)
[2018-07-08] MEDS: glipiZIDE 5 MG TAB PO SCH (08:59)
[2018-07-08] MEDS: Atorvastatin Calcium 20 MG TAB PO SCH (08:59)
[2018-07-08] MEDS: Clopidogrel Bisulfate 75 MG TAB PO SCH (08:59)
[2018-07-08] MEDS: Gabapentin 100 MG CAP PO SCH ×2 (08:59→21:34)
[2018-07-08] MEDS: Carvedilol 6.25 MG TAB PO SCH (08:59)
[2018-07-08] MEDS: Cyanocobalamin (Vitamin B-12) 1,000 MCG TAB PO SCH (09:00)
[2018-07-08] MEDS: Aspirin 81 mg Enteric Coated Tablet PO SCH (09:00)
[2018-07-08] MEDS: Folic Acid 1 MG TAB PO SCH (09:00)
[2018-07-08] MEDS: Senokot S 8.6-50 MG TAB PO SCH ×2 (09:00→21:34)
--- NOTE | 2018-07-08 10:49 | PDOC.PN ---
- Subjective Encounter Start Date: 07/08/18 Encounter Start Time: 10:47 Subjective: Admitted due to acute onset of transient facial droop and dysarthria +AMS -: back to baseline. Found to have bilateral carotid atherosclerosis. -: last HD was on - Objective Resuscitation Status - Order Detail: 07/04/18 23:38 Resuscitation Status Routine Resuscitation Status: FULL: Full Resuscitation Vital Signs & Weight: Vital Signs (12 hours) Temp Pulse Resp BP BP Pulse Ox 07/08/18 08:59 122/63 07/08/18 08:58 61 122/63 07/08/18 08:00 97 07/08/18 07:38 99.7 F H 61 16 122/63 97 07/08/18 04:00 98.3 F 65 16 148/65 H 98 07/08/18 00:00 98.3 F 60 16 133/61 97 Weight Weight 137 lb 5 oz I&O: 07/07/18 07/08/18 07/09/18 06:59 06:59 06:59 Intake Total 250 960 Balance 250 960 Result Diagrams: 07/07/18 16:00 07/07/18 16:00 Additional Labs: Accuchecks 07/08/18 07/07/18 07/07/18 05:33 20:08 18:28 POC Glucose 151 H 104 100 07/07/18 10:46 POC Glucose 255 H Phys Exam - Physical Examination HEENT: PERRLA, moist MMs Neck: no JVD, supple fair air entry bilaterally with no obvious crackles or rhonchi Cardiovascular: RRR soft systolic murmur at the aortic area noted Gastrointestinal: soft, non-tender, no distention, positive bowel sounds Musculoskeletal: no edema Right BKA with dressing on the stump. Neurological: non-focal, moves all 4 limbs Psychiatric: A&O x 3 Dx/Plan (1) TIA (transient ischemic attack) Code(s): G45.9 - TRANSIENT CEREBRAL ISCHEMIC ATTACK, UNSPECIFIED Status: Acute Comment: For surgical intervention when stabilized after recent R BKA as per vascular syuyrgery (2) Atherosclerosis of both carotid arteries Code(s): I65.23 - OCCLUSION AND STENOSIS OF BILATERAL CAROTID ARTERIES Status : Acute (3) S/P BKA (below knee amputation) unilateral Code(s): Z89.519 - ACQUIRED ABSENCE OF UNSPECIFIED LEG BELOW KNEE Status: Acute (4) Altered mental status Code(s): R41.82 - ALTERED MENTAL STATUS, UNSPECIFIED Status: Resolved (5) Anemia of renal disease Code(s): D63.1 - ANEMIA IN CHRONIC KIDNEY DISEASE Status: Chronic (6) DM type 2 (diabetes mellitus, type 2) Status: Chronic Qualifiers: Diabetes mellitus [facility] insulin use: with [facility] use Diabetes mellitus complication status: with kidney complications Chronic kidney disease stage: on chronic dialysis Comment: controlled (7) ESRD (end stage renal disease) on dialysis Code(s): N18.6 - END STAGE RENAL DISEASE; Z99.2 - DEPENDENCE ON RENAL DIALYSIS Status: Chronic Comment: HD per Renal service (8) HLD (hyperlipidemia) Code(s): E78.5 - HYPERLIPIDEMIA, UNSPECIFIED Status: Chronic Comment: resume statin (9) HTN (hypertension) Code(s): I10 - ESSENTIAL (PRIMARY) HYPERTENSION Status: Chronic Qualifiers: Hypertension type: essential hypertension Qualified Code(s): I10 - Essential (primary) hypertension Comment: resume isosorbide mononitrate (10) Hypothyroidism Code(s): E03.9 - HYPOTHYROIDISM, UNSPECIFIED Status: Chronic Comment: Resume home meds. (11) PVD (peripheral vascular disease) Code(s): I73.9 - PERIPHERAL VASCULAR DISEASE, UNSPECIFIED Status: Chronic Comment: Severe PVD, continue ASA (12) S/P aortic valve replacement Code(s): Z95.2 - PRESENCE OF PROSTHETIC HEART VALVE Status: Chronic Comment : for severe aortic stenosis - Plan Continue current treatments. -: Avoid hypotension due to bilateral caraotid atherosclerosis -: For discharage back to [facility] once placement is sorted out. -: Continue PT.OT. -: HD and Anemia treatment as per [facility]. * .
[2018-07-08] MEDS: Insulin Regular 300 UNITS/3 ML VIAL SC PRN (12:54)
--- NOTE | 2018-07-08 13:28 | PRG ---
DATE OF SERVICE: 07/08/2018 SUBJECTIVE: Patient was seen and examined at bedside and overnight events noted. Patient denies any shortness of breath or chest pain or palpitation. No history of nausea or vomiting or diarrhea or fever or chills or cramps. OBJECTIVE: GENERAL: This is a well-built male, in no apparent distress. VITAL SIGNS: Temperature 98.0. Pulse 60. Respiratory rate 18. Blood pressure 122/63. HEENT: Atraumatic, normocephalic. Oral mucosa is moist. NECK: Supple. CARDIOVASCULAR: S1, S2 heard. Rate and rhythm regular. RESPIRATORY: Clear to auscultation. GASTROINTESTINAL: Abdomen is soft. MUSCULOSKELETAL: No tenderness. No edema. DERMATOLOGIC: No skin rash. NEUROLOGIC: Alert and awake and oriented X3. No focal neurologic deficits. Moving all the extremities. PSYCHIATRIC: Mood and affect normal. LABORATORY DATA: Not done today. ASSESSMENT AND PLAN: 1. End-stage renal disease. Continue dialysis on Thursday, Thursday, and Thursday. 2. Hyperkalemia. Monitor and limit potassium intake. 3. Anemia. 4. Edema. 5. Hypertension. Continue dialysis on Thursday, Thursday, and Thursday as tolerated. Job ID: [id number]
[2018-07-08] MEDS: Sodium Chloride 0.9% (PF) 10 ML VIAL FS PRN (21:33)
[2018-07-09] MEDS: Carvedilol 6.25 MG TAB PO SCH ×2 (04:44→12:09)
[2018-07-09] MEDS: Levothyroxine Sodium 100 MCG TAB PO SCH (06:04)
[2018-07-09 11:42] VITALS: BP 140/65; TEMP 99.5
[2018-07-09] MEDS: glipiZIDE 5 MG TAB PO SCH (12:09)
[2018-07-09] MEDS: Lisinopril 5 MG TAB PO SCH (12:09)
[2018-07-09] MEDS: Gabapentin 100 MG CAP PO SCH (12:10)
[2018-07-09] MEDS: Senokot S 8.6-50 MG TAB PO SCH (12:10)
[2018-07-09] MEDS: Atorvastatin Calcium 20 MG TAB PO SCH (12:10)
[2018-07-09] MEDS: Aspirin 81 mg Enteric Coated Tablet PO SCH (12:11)
[2018-07-09] MEDS: Folic Acid 1 MG TAB PO SCH (12:11)
[2018-07-09] MEDS: Clopidogrel Bisulfate 75 MG TAB PO SCH (12:11)
[2018-07-09] MEDS: Cyanocobalamin (Vitamin B-12) 1,000 MCG TAB PO SCH (12:11)
[2018-07-09] MEDS: Pantoprazole 40 MG VIAL IVP SCH (12:11)
[2018-07-09] MEDS: Insulin Regular 300 UNITS/3 ML VIAL SC PRN (12:27)
[2018-07-09] MEDS: Epoetin (ESRD) 10,000 UNITS/ML VIAL IVP SCH (12:57)
--- NOTE | 2018-07-09 14:20 | DIS ---
DATE OF ADMISSION: 07/06/2018 DATE OF DISCHARGE: 07/09/2018 DISCHARGE DIAGNOSES: 1. Transient ischemic attack. 2. Atherosclerosis of both carotid arteries. 3. Acute encephalopathy due to transient ischemic attack. 4. Type 2 diabetes mellitus. 5. Hyperlipidemia. 6. Hypertension. 7. Hypothyroidism. 8. Peripheral vascular disease. 9. Status post recent right below knee amputation. 10. Status post aortic valve replacement. 11. End-stage renal disease, on dialysis. 12. Anemia of renal disease. 13. Hyperkalemia. CONSULTS: 1. Nephrology. 2. General Surgery. 3. Neurology. 4. Vascular Surgery. PROCEDURES PERFORMED: Hemodialysis. HOSPITAL COURSE: A 68-year-old male with known history of coronary artery disease, hypertension, hyperlipidemia, diabetes, and end-stage renal disease on hemodialysis, as well as peripheral vascular disease with recent right BKA. Following which, he was discharged to acute rehab, was readmitted from the acute rehab due to acute onset of altered mental status. The patient was noted to have acute drop in blood pressure around the time of acute mental status of slurred speech as well as facial droop. Neurologic symptoms soon resolved after about 20 to 30 minutes. Blood pressure reportedly remained stable subsequently. Impression of acute TIA was met and the patient was evaluated subsequently with CT scan of the brain, which was negative. The patient, however, was found to have bilateral atherosclerosis of the carotids with critical on the left and severe on the right. Neurology consult was obtained. An addition of aspirin to Plavix was recommended. Vascular Surgery consult was obtained for possible endarterectomy, but Vascular Surgery was of the view that this should be considered only when the patient has recovered fully from recent surgery. Moreover, he also of the view that the left side has a string sign, hence not amenable to surgical intervention, that right site should be considered for endarterectomy when the patient is medically ready and has recovered from recent discharge. The patient also was noted to have acute drop in hemoglobin from baseline 8 to 9 to 7.1, hence was transfused 1 unit of packed red blood cells. The patient also was noted to have hyperkalemia and Nephrology consult was obtained, and the patient was treated with regular hemodialysis. General Surgery consult was also obtained for wound on the BKA stump and this was felt to be mild dehiscence and wound care was recommended. The patient remained hemodynamically stable and initially held antihypertensives were restarted with hemodynamics remain stable, hence was subsequently discharged back to the acute rehab for continuation of his restorative therapy. PHYSICAL EXAMINATION: VITAL SIGNS: Temperature 99.5, pulse 66, respiratory rate 16, SpO2 of 94% on room air, and blood pressure 140/65. GENERAL: Elderly looking male, in no obvious distress. Afebrile, anicteric. HEENT: Normocephalic and atraumatic. Pupils are equal and reacting to light. RESPIRATORY: Good air entry bilaterally with no obvious crackle or rhonchi. CARDIOVASCULAR: Regular rhythm and rate with normal heart sounds 1 and 2. Systolic murmur heard at aortic area noted. GI: Soft, nontender, and nondistended with normal bowel sounds. MUSCULOSKELETAL: Right BKA stump with dressing noted. Other lower extremities and upper extremities are grossly normal looking. Right forearm AV fistula noted. NEUROLOGIC: Conscious, alert, and oriented x3 with appropriate mental status. PERTINENT DIAGNOSTIC DATA: MRI of the brain performed on July 06, 2018, showed absent restricted diffusion consistent with no acute infarct. CT angio of the head and neck showed intermittent occlusion of the left internal carotid artery (cervical portion at the level of the bifurcation and proximal internal carotid artery as well as the mid to distal left internal carotid artery). Moderate stenosis involving the right carotid artery also was noted. Also reported there was a possible mass in the right hilum and subcarinal regions. Echocardiogram performed on July 06, 2018, showed ejection fraction of 50% to 55% with probable diastolic dysfunction. DISCHARGE MEDICATIONS: 1. Bisacodyl suppository 10 mg p.o. p.r.n. daily. 2. Lipitor 20 mg daily. 3. Tylenol 325 p.o. q.4 hours p.r.n. 4. Clonidine 0.1 mg q.6 hours p.r.n. for hypertension. 5. Calcium carbonate 500 mg q.i.d. p.r.n. 6. Glucagon 1 mg IM p.r.n. 7. Neurontin 100 mg p.o. b.i.d. 8. Guaifenesin 200 mg p.o. q.4 p.r.n. for cough. 9. Benadryl 25 mg p.o. q.6 p.r.n. 10. Lactulose 20 g p.o. t.i.d. p.r.n. 11. MiraLAX 17 g p.o. daily. 12. Protonix 40 mg p.o. daily. 13. Milk of magnesia 30 mL p.o. at bedtime p.r.n. 14. Insulin sliding scale. 15. Carvedilol 12.5 mg p.o. b.i.d. 16. PhosLo (calcium acetate) 1334 mg p.o. t.i.d. with meals. 17. Plavix 75 mg p.o. daily. 18. Metoclopramide 5 mg t.i.d. 19. Lisinopril 5 mg p.o. daily. 20. Synthroid 100 mcg daily at 6 a.m. 21. Isosorbide mononitrate 30 mg p.o. daily. 22. . 23. Glipizide 5 mg p.o. daily. 24. . 25. Nitroglycerin sublingual 0.4 mg p.o. every 5 minutes p.r.n. for chest pain. 26. Folic acid 1 mg daily. 27. Cyanocobalamin 1000 mcg p.o. daily. 28. Aspirin 81 mg daily. FOLLOWUP: The patient is to follow with the PCP for further evaluation of possible soft krystle mass. The patient also is to follow up with General Surgery about the BKA stump. The patient also is to follow up with Vascular Surgery for re-evaluation for consideration of endarterectomy in 3 to 4 weeks. TIME SPENT: Discharge took more than 37 minutes. Job ID: [id number]
--- NOTE | 2018-07-09 19:51 | PRG ---
DATE OF SERVICE: 07/09/2018 SUBJECTIVE: Patient was seen and examined at bedside and overnight events noted. Patient denies any shortness of breath or chest pain or palpitation. No history of nausea or vomiting or diarrhea or fever or chills or cramps. OBJECTIVE: GENERAL: This is a well-built male, in no apparent distress. VITAL SIGNS: Temperature 99, heart rate 60, respiratory rate 16, and blood pressure 140/65. HEENT: Atraumatic, normocephalic. Oral mucosa is moist NECK: Supple. CARDIOVASCULAR: S1, S2 heard. Rate and rhythm regular. RESPIRATORY: Clear to auscultation. GASTROINTESTINAL: Abdomen is soft. MUSCULOSKELETAL: No tenderness. No edema. DERMATOLOGIC: No skin rash. NEUROLOGIC: Alert and awake and oriented X3. No focal neurologic deficits. Moving all the extremities. PSYCHIATRIC: Mood and affect normal. LABORATORY DATA: Not done today. ASSESSMENT AND PLAN: 1. End-stage renal disease. Continue dialysis on Thursday, Thursday, and Thursday. 2. Hyperkalemia. Limit potassium intake. 3. Anemia. 4. Edema. 5. Hypertension. Continue dialysis as tolerated. Job ID: [id number]
--- NOTE | 2018-07-10 18:46 | EKG ---
Test Reason : ER Blood Pressure : / mmHG Vent. Rate : 071 BPM Atrial Rate : 071 BPM P-R Int : 164 ms QRS Dur : 086 ms QT Int : 406 ms P-R-T Axes : 072 -02 139 degrees QTc Int : 441 ms Normal sinus rhythm Peaked T waves Abnormal ECG Confirmed by ALBA MONTOYA, VALENTINA Cantu ([id number]), editor greeting card MARIA ESTHER BARRETT ([id number]) on 07/10/2018 6:45:36 PM Referred By: Confirmed By:VALENTINA WILLIS MD
== END 2018-07-09 15:45 | DRG 67 ==
LOC: ERS 19:34 → 2NO 21:00 → INTOOBSV 21:00 → OBSVTOIN 07-06 07:33 → 2SE 07-06 14:46
PROVIDERS: ADMIT Internal Medicine; ATTEND Internal Medicine
PROC: 30233N1 Transfusion of Nonautologous Red Blood Cells into Peripheral Vein, Percutaneous Approach (ICD-10-PCS; principal; 2018-07-04)
PROC: 5A1D70Z Performance of Urinary Filtration, Intermittent, Less than 6 Hours Per Day (ICD-10-PCS; 2018-07-04)
DX: I65.23 Occlusion and stenosis of bilateral carotid arteries (principal); N18.6 End stage renal disease; I24.8 Other forms of acute ischemic heart disease; E87.1 Hypo-osmolality and hyponatremia; E44.1 Mild protein-calorie malnutrition; I12.0 Hypertensive chronic kidney disease with stage 5 chronic kidney disease or end stage renal disease; G93.49 Other encephalopathy; I25.10 Atherosclerotic heart disease of native coronary artery without angina pectoris; E78.5 Hyperlipidemia, unspecified; E11.22 Type 2 diabetes mellitus with diabetic chronic kidney disease; E11.51 Type 2 diabetes mellitus with diabetic peripheral angiopathy without gangrene; E03.9 Hypothyroidism, unspecified; D63.1 Anemia in chronic kidney disease; E87.5 Hyperkalemia; T87.81 Dehiscence of amputation stump; Z99.2 Dependence on renal dialysis; Z86.73 Personal history of transient ischemic attack (TIA), and cerebral infarction without residual deficits; Z89.511 Acquired absence of right leg below knee; Z79.4 Long term (current) use of insulin; Z79.02 Long term (current) use of antithrombotics/antiplatelets; Z79.899 Other long term (current) drug therapy; Z87.891 Personal history of nicotine dependence; Z95.2 Presence of prosthetic heart valve; Y83.5 Amputation of limb(s) as the cause of abnormal reaction of the patient, or of later complication, without mention of misadventure at the time of the procedure
CPT/HCPCS: 36415; 36416; 36430; 51701; 70450; 70496; 70498; 70551; 71045; 80048; 80053; 80061; 81003; 81015; 82553; 84443; 84484; 85025; 85610; 85730; 86850; 86900; 86901; 87086; 90935; 93005; 93306; 93880; 94760; C9113; G0257; J1815; P9016; Q4081; Q9967

== ENCOUNTER 2019-08-01 16:28 | Emergency (ER) | payer MEDICARE ==
[2019-08-01 17:06] LABS: #Eosinphils 0.2 thou/uL (0.0-0.7); #Lymphocytes 0.6 thou/uL (1.20-3.40); #Monocytes 0.4 thou/uL (0.11-0.59); #Neutrophils 4.6 thou/uL (1.40-6.50); %Basophils 0.8 % (0.0-1.0); %Eosinophils 3.2 % (0.0-10.0); %Lymphocytes 10.2 % (21.0-51.0); %Monocytes 6.8 % (0.0-10.0); Hemoglobin 11.4 g/dL (14.0-18.0); Mean Corpuscular HGB CONC 32.4 g/dL (32.0-36.0); Mean Corpuscular Hemoglobin 31.2 pg (27.0-31.0); Mean Corpuscular Volume 96.3 fL (78.0-98.0); Mean Platelet Volume 9.1 fL (7.4-10.4); Platelet Count 129 thou/uL (130-400); RBC Distribution Width 14.8 % (11.5-14.5); Red Blood Cell (RBC) Count 3.65 mill/uL (4.70-6.10); White Blood Cell (WBC) Count 5.8 thou/uL (4.8-10.8)
[2019-08-01] MEDS ORDERED: Ondansetron PF 4 MG/2 ML Vial ONE (17:07)
[2019-08-01 17:21] LABS: ALT (SGPT) 9 U/L (8-55); AST (SGOT) 16 U/L (5-34); Albumin 4.6 g/dL (3.4-4.8); Alkaline Phosphatase 107 U/L (40-110); Anion Gap 12 mmol/L (10-20); BUN (Urea Nitrogen) 26 mg/dL (8.4-25.7); Bilirubin, Total 0.8 mg/dL (0.2-1.2); Calc. Creatinine Clearance 0 mL/min (70-130); Calcium 9.7 mg/dL (7.8-10.44); Carbon Dioxide 33 mmol/L (23-31); Chloride 100 mmol/L (98-107); Estimated GFR-MDRD 14; Globulin 3.7 g/dL (2.4-3.5); Glucose 113 mg/dL (80-115); Potassium 3.7 mmol/L (3.5-5.1); Protein, Total 8.3 g/dL (5.8-8.1); Sodium 141 mmol/L (136-145)
[2019-08-01 17:44] LABS: CKMB 2.1 ng/mL (0-6.6)
--- NOTE | 2019-08-06 09:59 | EKG ---
Test Reason : VOMITING, DIZZY Blood Pressure : / mmHG Vent. Rate : 062 BPM Atrial Rate : 062 BPM P-R Int : 166 ms QRS Dur : 092 ms QT Int : 460 ms P-R-T Axes : 081 004 152 degrees QTc Int : 466 ms Poor data quality, interpretation may be adversely affected Normal sinus rhythm Left ventricular hypertrophy with repolarization abnormality Abnormal ECG Confirmed by LYN ALEGRE ([id number]), machinist job setter CARA HART ([id number]) on 08/06/2019 9:59:34 AM Referred By: Confirmed By:LYN ALEGRE
== END 2019-08-01 20:10 | disposition home or self-care (01) ==
LOC: ERS 16:28
DX: R42 Dizziness and giddiness (principal); R11.2 Nausea with vomiting, unspecified; E78.5 Hyperlipidemia, unspecified; E78.00 Pure hypercholesterolemia, unspecified; I10 Essential (primary) hypertension; I25.10 Atherosclerotic heart disease of native coronary artery without angina pectoris; E11.9 Type 2 diabetes mellitus without complications; Z86.73 Personal history of transient ischemic attack (TIA), and cerebral infarction without residual deficits; Z87.891 Personal history of nicotine dependence; Z79.891 Long term (current) use of opiate analgesic; Z79.899 Other long term (current) drug therapy
CPT/HCPCS: 80053; 82553; 84484; 85025; 93005; 94760; 96361; 96374; J2405

== ENCOUNTER 2019-10-27 14:52 | Emergency (ER) | payer MEDICARE, OTHER ==
[2019-10-27 15:29] LABS: #Eosinphils 0.1 thou/uL (0.0-0.7); #Lymphocytes 0.6 thou/uL (1.20-3.40); #Monocytes 0.7 thou/uL (0.11-0.59); #Neutrophils 11.8 thou/uL (1.40-6.50); %Basophils 0.3 % (0.0-1.0); %Eosinophils 0.6 % (0.0-10.0); %Lymphocytes 4.7 % (21.0-51.0); %Monocytes 5.3 % (0.0-10.0); %Neutrophils 89.1 % (42.0-75.0); Hemoglobin 12.9 g/dL (14.0-18.0); Mean Corpuscular HGB CONC 30.1 g/dL (32.0-36.0); Mean Corpuscular Hemoglobin 27.7 pg (27.0-31.0); Mean Corpuscular Volume 92.1 fL (78.0-98.0); Mean Platelet Volume 10.2 fL (7.4-10.4); Platelet Count 184 thou/uL (130-400); RBC Distribution Width 18.4 % (11.5-14.5); Red Blood Cell (RBC) Count 4.66 mill/uL (4.70-6.10); White Blood Cell (WBC) Count 13.3 thou/uL (4.8-10.8)
[2019-10-27 15:56] LABS: ALT (SGPT) Less than 7 U/L (8-55); AST (SGOT) 20 U/L (5-34); Alkaline Phosphatase 153 U/L (40-110); Anion Gap 17 mmol/L (10-20); BUN (Urea Nitrogen) 10 mg/dL (8.4-25.7); Calc. Creatinine Clearance 0 mL/min (70-130); Calcium 9.7 mg/dL (7.8-10.44); Carbon Dioxide 28 mmol/L (23-31); Chloride 98 mmol/L (98-107); Estimated GFR-MDRD 16; Globulin 4.3 g/dL (2.4-3.5); Glucose 61 mg/dL (80-115); Potassium 3.9 mmol/L (3.5-5.1); Protein, Total 8.3 g/dL (5.8-8.1); Sodium 139 mmol/L (136-145)
[2019-10-27] MEDS ORDERED: Acetaminophen 500 MG TAB ONE (16:03)
--- NOTE | 2019-10-27 16:29 | RAD ---
PORTABLE CHEST ONE VIEW: 10/27/19 at 4:06 p.m. HISTORY: Cough, shortness of breath, COVID positive. FINDINGS/IMPRESSION: Comparison is made with the exam of 07/04/18. Changes of median sternotomy again seen. The heart size is normal. There is interval worsening of con solidative change in the right lower lung with accompanying small effusion. A vascular stent is seen in the right arm. No pneumothoraces identified. POS: [facility]
[2019-10-28 14:53] LABS: SARS-CoV-2 MS2 Positive; SARS-CoV-2 N Gene Positive; SARS-CoV-2 S Gene Positive; SARS-CoV-2 orf1ab Positive
== END 2019-10-27 19:30 | disposition home or self-care (01) ==
LOC: ERS 14:52
DX: U07.1 COVID-19 (principal); N18.6 End stage renal disease; E78.5 Hyperlipidemia, unspecified; I10 Essential (primary) hypertension; I25.10 Atherosclerotic heart disease of native coronary artery without angina pectoris; E11.9 Type 2 diabetes mellitus without complications; Z86.73 Personal history of transient ischemic attack (TIA), and cerebral infarction without residual deficits; Z87.891 Personal history of nicotine dependence
CPT/HCPCS: 71045; 80053; 82553; 83605; 84484; 85025; 87040; 93005; 99284; U0003; 87635

== ENCOUNTER 2021-01-31 15:56 | Outpatient (CLI) | payer MEDICARE | END 2021-01-31 15:57 | disposition home or self-care (01) | LOC: BICRAD 15:56 | PROVIDERS: ATTEND Internal Medicine Nephrology | DX: R06.02 Shortness of breath (principal); I51.7 Cardiomegaly | CPT/HCPCS: 71046 ==

== ENCOUNTER 2021-10-29 15:30 | Inpatient (IN) | payer MEDICARE ==
[2021-10-31] MEDS ORDERED: Bupivacaine 0.25% HCL 30 ML VIAL ONE (06:45)
[2021-10-31] MEDS ORDERED: Protamine Sulfate 50 MG/5 ML VIAL ONE (06:45)
[2021-10-31] MEDS ORDERED: Heparin 5,000 UNITS/ML VIAL ONE (06:45)
[2021-10-31] MEDS ORDERED: EPINEPHrine 1 MG/ML AMP ONE (06:45)
[2021-10-31] MEDS ORDERED: Lidocaine 1% MPF 2 ML VIAL ONE (07:09)
[2021-10-31] MEDS ORDERED: Fentanyl 100 MCG/2 ML VIAL ONE (07:12)
[2021-10-31] MEDS ORDERED: Midazolam HCl 2 mg/2 ml Vial ONE (07:12)
[2021-10-31] MEDS ORDERED: PROPOFOL 200 MG/20 ML VIAL ONE (07:15)
[2021-10-31] MEDS ORDERED: Lidocaine 1% PF 5 ML VIAL ONE (07:15)
[2021-10-31] MEDS ORDERED: Glycopyrrolate 0.2 MG/ML 5 ML SYRINGE ONE (07:15)
[2021-10-31] MEDS ORDERED: CEFAZOLIN 2 GM VIAL ONE (07:21)
[2021-10-31] MEDS ORDERED: Sodium Chloride 0.9% 100 ML ONE (07:22)
[2021-10-31] MEDS ORDERED: Nitroglycerin 50 MG/250 ML BOT 0 ML ONE (07:38)
[2021-10-31] MEDS ORDERED: Phenylephrine 10 MG/ML VIAL ONE (07:38)
[2021-10-31] MEDS ORDERED: niCARdipine 25 MG/10 ML VIAL ONE (07:38)
[2021-10-31] MEDS ORDERED: Phenylephrine 40 MG in Sodium Chloride 0.9% 250 ML 250 ML IVPB PRN (09:42)
[2021-10-31] MEDS ORDERED: Dextrose 5% in Water 1,000 ML IV PRN (09:42)
[2021-10-31] MEDS ORDERED: Ondansetron PF 4 MG/2 ML Vial IVP PRN (09:42)
[2021-10-31] MEDS ORDERED: traMADol HCl 50 MG TAB PO PRN (09:42)
[2021-10-31] MEDS ORDERED: Calcium Carbonate 500 MG ChewTAB PO PRN (09:42)
[2021-10-31] MEDS ORDERED: Dextrose 50% Abboject 50 ML SYRINGE SLOW IVP PRN (09:42)
[2021-10-31] MEDS ORDERED: Insulin Regular 300 UNITS/3 ML VIAL SC PRN (09:42)
[2021-10-31] MEDS ORDERED: ceFAZolin 2 GM/Dextrose 50 ML 2 GM in Premix Bag 1 BAG IVPB SCH (09:42)
[2021-10-31] MEDS ORDERED: niCARdipine 25 MG in Sodium Chloride 0.9% 250 ML 250 ML IVPB PRN (09:42)
[2021-10-31] MEDS ORDERED: Acetaminophen 325 MG TAB PO PRN (09:42)
[2021-10-31] MEDS ORDERED: Morphine 2 MG/ML VIAL SLOW IVP PRN (09:42)
[2021-10-31] MEDS ORDERED: Ondansetron HCl/PF 4 MG/2 ML Vial IVP PRN (09:47)
[2021-10-31] MEDS ORDERED: Promethazine HCl 25 MG/ML VIAL IVPB PRN (09:47)
[2021-10-31] MEDS ORDERED: Promethazine HCl 25 MG/ML VIAL IM PRN (09:47)
[2021-10-31] MEDS ORDERED: hydrALAZINE 20 MG/ML VIAL ONE (10:17)
[2021-10-31] MEDS: Sodium Chloride 0.9% 1,000 ML IV SCH (11:29)
[2021-10-31 12:32] LABS: Glucose 60 mg/dL (83-110)
[2021-10-31] MEDS: CEFAZOLIN 2 GM in Sodium Chloride 0.9% 100 ML IVPB SCH ×2 (12:35→21:11)
[2021-10-31] MEDS ORDERED: Non-Formulary Item 1 EACH (Carvedilol [Coreg] 12.5 MG Tab) PO SCH (21:00)
[2021-10-31] MEDS: Carvedilol 6.25 MG TAB PO SCH (21:29)
[2021-11-01 04:09] LABS: Anion Gap 19 mmol/L (10-20); BUN (Urea Nitrogen) 31 mg/dL (8.4-25.7); Calc. Creatinine Clearance 10 mL/min (70-130); Calcium 8.5 mg/dL (7.8-10.44); Carbon Dioxide 22 mmol/L (23-31); Chloride 100 mmol/L (98-107); Estimated GFR 9; Glucose 110 mg/dL (83-110); Sodium 136 mmol/L (136-145)
[2021-11-01] MEDS: CEFAZOLIN 2 GM in Sodium Chloride 0.9% 100 ML IVPB SCH (06:27)
[2021-11-01] MEDS ORDERED: Atorvastatin Calcium 20 MG TAB PO SCH (09:00)
[2021-11-01] MEDS ORDERED: Aspirin Chewable 81 MG TAB PO SCH (09:00)
[2021-11-01] MEDS ORDERED: glipiZIDE 5 MG TAB PO SCH (09:00)
[2021-11-01] MEDS ORDERED: Lisinopril 5 MG TAB PO SCH (09:00)
[2021-11-01] MEDS ORDERED: GLIPIZIDE 5 MG PO SCH (09:00)
[2021-11-01] MEDS ORDERED: Calcium Acetate 667 MG CAP PO SCH (09:00)
[2021-11-01 09:27] VITALS: BP 143/51
[2021-11-01] MEDS: Carvedilol 6.25 MG TAB PO SCH (09:27)
[2021-11-01] MEDS: Sodium Chloride 0.9% 1,000 ML IV SCH (12:12)
[2021-11-01 13:24] LABS: HBSAg Index 0.27 S/CO (0-0.99); Hep B Core Total Ab Non-Reactive (NonReactive); Hep B Core Total Index 0.12 S/CO (0-0.79); Hep B Surf Ag Non-Reactive S/CO (NonReactive); Hep C IgG Ab Non-Reactive (NonReactive); Hep C Index 0.17 S/CO (0-0.79)
[2021-11-01 13:29] LABS: HBSAB Concentration 20.83 mIU/mL; Hep B Surf AB Reactive (NonReactive)
[2021-11-01 14:32] VITALS: BMI 23.3
[2021-11-01 15:40] VITALS: TEMP 96.4
== END 2021-11-01 17:00 | disposition home or self-care (01) | DRG 37 ==
LOC: SURG A 10-31 05:57 → CCU 10-31 11:37
PROVIDERS: ADMIT Thoracic Surgery (Cardiothoracic Vascular Surgery); ATTEND Thoracic Surgery (Cardiothoracic Vascular Surgery)
PROC: 03CK0ZZ Extirpation of Matter from Right Internal Carotid Artery, Open Approach (ICD-10-PCS; principal; 2021-10-31)
PROC: 03UK0KZ Supplement Right Internal Carotid Artery with Nonautologous Tissue Substitute, Open Approach (ICD-10-PCS; 2021-10-31)
PROC: 5A1D70Z Performance of Urinary Filtration, Intermittent, Less than 6 Hours Per Day (ICD-10-PCS; 2021-11-01)
DX: I65.23 Occlusion and stenosis of bilateral carotid arteries (principal); N18.6 End stage renal disease; E11.52 Type 2 diabetes mellitus with diabetic peripheral angiopathy with gangrene; I12.0 Hypertensive chronic kidney disease with stage 5 chronic kidney disease or end stage renal disease; Z20.822 Contact with and (suspected) exposure to COVID-19; E11.22 Type 2 diabetes mellitus with diabetic chronic kidney disease; E03.9 Hypothyroidism, unspecified; D63.1 Anemia in chronic kidney disease; Z79.899 Other long term (current) drug therapy; Z79.82 Long term (current) use of aspirin; Z79.84 Long term (current) use of oral hypoglycemic drugs; Z79.4 Long term (current) use of insulin; Z99.2 Dependence on renal dialysis; Z98.890 Other specified postprocedural states; Z89.611 Acquired absence of right leg above knee; Z83.3 Family history of diabetes mellitus; Z82.49 Family history of ischemic heart disease and other diseases of the circulatory system; Z87.891 Personal history of nicotine dependence; Z86.73 Personal history of transient ischemic attack (TIA), and cerebral infarction without residual deficits
CPT/HCPCS: 36415; 36416; 80048; 82947; 85014; 85018; 85027; 86704; 87340; 87811; 90935; C1768; G0257; J0171; J0360; J0690; J1644; J2250; J2270; J2370; J2704; J2710; J2720; J3010; J3490; J7050; S0020

== ENCOUNTER 2021-10-29 15:44 | Outpatient (CLI) | payer MEDICARE ==
[2021-10-29 16:28] LABS: Hemoglobin 10.7 g/dL (13.5-17.5); Mean Corpuscular HGB CONC 31.1 g/dL (32.0-36.0); Mean Corpuscular Hemoglobin 30.1 pg (27.0-33.0); Mean Corpuscular Volume 96.9 fl (81.2-95.1); Mean Platelet Volume 11.5 fl (7.4-10.4); Platelet Count 89 10x3/uL (150-450); RBC Distribution Width 14.9 % (11.5-14.5); Red Blood Cell (RBC) Count 3.55 10x6/uL (4.32-5.72); White Blood Cell (WBC) Count 4.3 10x3/uL (3.5-10.5)
[2021-10-29 16:44] LABS: Anion Gap 17 mmol/L (10-20); BUN (Urea Nitrogen) 33 mg/dL (8.4-25.7); Calc. Creatinine Clearance 0 mL/min (70-130); Calcium 8.7 mg/dL (7.8-10.44); Carbon Dioxide 29 mmol/L (23-31); Chloride 101 mmol/L (98-107); Estimated GFR 9; Potassium 5.2 mmol/L (3.5-5.1); Sodium 142 mmol/L (136-145)
[2021-10-29 16:50] LABS: Glucose 58 mg/dL (83-110)
== END 2021-10-29 15:45 | disposition home or self-care (01) ==
LOC: LABBT 15:44
PROVIDERS: ATTEND Thoracic Surgery (Cardiothoracic Vascular Surgery)
DX: Z01.812 Encounter for preprocedural laboratory examination (principal); I65.21 Occlusion and stenosis of right carotid artery; Z20.822 Contact with and (suspected) exposure to COVID-19
CPT/HCPCS: 80048; 85027; 87811

== ENCOUNTER 2022-07-02 12:37 | Emergency (ER) | payer MEDICARE ==
[2022-07-02 13:05] LABS: #Eosinphils 0.2 thou/uL (0.0-0.7); #Lymphocytes 0.8 thou/uL (1.20-3.40); #Monocytes 0.3 thou/uL (0.11-0.59); #Neutrophils 3.9 thou/uL (1.40-6.50); %Basophils 0.6 % (0.0-1.0); %Eosinophils 3.5 % (0.0-10.0); %Lymphocytes 15.5 % (21.0-51.0); %Monocytes 6.1 % (0.0-10.0); %Neutrophils 74.4 % (42.0-75.0); Hemoglobin 11.5 g/dL (14.0-18.0); Mean Corpuscular HGB CONC 32.8 g/dL (32.0-36.0); Mean Corpuscular Volume 97.6 fl (78.0-98.0); Mean Platelet Volume 9.8 fL (7.4-10.4); Platelet Count 85 10x3/uL (130-400); Red Blood Cell (RBC) Count 3.58 mill/uL (4.70-6.10); White Blood Cell (WBC) Count 5.2 10x3/uL (4.8-10.8)
== END 2022-07-02 16:05 | disposition home or self-care (01) ==
LOC: ERS 12:37
DX: R04.0 Epistaxis (principal)
CPT/HCPCS: 36415; 85025; 99283

== ENCOUNTER 2022-09-02 22:31 | Inpatient (IN) | payer MEDICARE ==
[2022-09-03 00:20] LABS: #Eosinphils 0.2 thou/uL (0.0-0.7); #Monocytes 0.4 thou/uL (0.11-0.59); #Neutrophils 2.4 thou/uL (1.40-6.50); %Eosinophils 3.8 % (0.0-10.0); %Lymphocytes 24.4 % (21.0-51.0); %Monocytes 10.8 % (0.0-10.0); %Neutrophils 59.7 % (42.0-75.0); Hemoglobin 11.6 g/dL (14.0-18.0); Mean Corpuscular HGB CONC 31.8 g/dL (32.0-36.0); Mean Corpuscular Hemoglobin 30.9 pg (27.0-31.0); Mean Corpuscular Volume 97.3 fl (78.0-98.0); Mean Platelet Volume 11.8 fL (7.4-10.4); RBC Distribution Width 14.7 % (11.5-14.5); Red Blood Cell (RBC) Count 3.75 mill/uL (4.70-6.10)
[2022-09-03 00:23] LABS: Platelet Count 72 10x3/uL (130-400)
[2022-09-03 00:40] LABS: ALT (SGPT) 12 U/L (8-55); AST (SGOT) 23 U/L (5-34); Alkaline Phosphatase 140 U/L (40-110); Anion Gap 20 mmol/L (10-20); BUN (Urea Nitrogen) 54 mg/dL (8.4-25.7); Bilirubin, Total 0.7 mg/dL (0.2-1.2); Calc. Creatinine Clearance 0 mL/min (70-130); Calcium 8.2 mg/dL (7.8-10.44); Carbon Dioxide 21 mmol/L (23-31); Chloride 103 mmol/L (98-107); Estimated GFR 8; Globulin 3.5 g/dL (2.4-3.5); Glucose 97 mg/dL (83-110); Potassium 5.6 mmol/L (3.5-5.1); Protein, Total 7.5 g/dL (5.8-8.1); Sodium 138 mmol/L (136-145)
[2022-09-03] MEDS ORDERED: Ondansetron ODT 4 MG TAB PO PRN (01:09)
[2022-09-03] MEDS ORDERED: Senokot S 8.6-50 MG TAB PO PRN (01:09)
[2022-09-03] MEDS ORDERED: Dextrose 50% Abboject 50 ML SYRINGE SLOW IVP PRN (02:21)
[2022-09-03] MEDS ORDERED: Dextrose 5% in Water 1,000 ML IV PRN (02:21)
[2022-09-03] MEDS ORDERED: Acetaminophen 500 MG TAB PO SCH (02:30)
[2022-09-03 03:43] VITALS: BMI 24.7
[2022-09-03 04:46] LABS: #Eosinphils 0.1 thou/uL (0.0-0.7); #Monocytes 0.5 thou/uL (0.11-0.59); #Neutrophils 2.2 thou/uL (1.40-6.50); %Basophils 0.8 % (0.0-1.0); %Eosinophils 3.7 % (0.0-10.0); %Lymphocytes 24.3 % (21.0-51.0); %Monocytes 11.9 % (0.0-10.0); Hemoglobin 11.1 g/dL (14.0-18.0); Mean Corpuscular HGB CONC 30.7 g/dL (32.0-36.0); Mean Corpuscular Hemoglobin 30.2 pg (27.0-31.0); Mean Corpuscular Volume 98.4 fl (78.0-98.0); Mean Platelet Volume 11.3 fL (7.4-10.4); RBC Distribution Width 14.6 % (11.5-14.5); Red Blood Cell (RBC) Count 3.67 mill/uL (4.70-6.10); White Blood Cell (WBC) Count 3.8 10x3/uL (4.8-10.8)
[2022-09-03 04:47] LABS: Platelet Count 71 10x3/uL (130-400)
[2022-09-03] MEDS ORDERED: HumaLOG 300 UNITS/3 ML VIAL SC PRN (04:47)
[2022-09-03 05:07] LABS: Anion Gap 17 mmol/L (10-20); BUN (Urea Nitrogen) 57 mg/dL (8.4-25.7); Calc. Creatinine Clearance 8 mL/min (70-130); Carbon Dioxide 25 mmol/L (23-31); Chloride 101 mmol/L (98-107); Estimated GFR 7; Glucose 120 mg/dL (83-110); Magnesium 2.2 mg/dL (1.6-2.6); Potassium 5.3 mmol/L (3.5-5.1); Sodium 138 mmol/L (136-145)
[2022-09-03] MEDS ORDERED: Sterile Water 0 ML ONE (05:16)
[2022-09-03] MEDS ORDERED: Heparin 10,000 UNITS/ 10 ML VIAL ONE (09:13)
[2022-09-03] MEDS ORDERED: Aspirin 81 mg Enteric Coated Tablet PO SCH (09:15)
[2022-09-03] MEDS: Loratadine 10 MG TAB PO SCH (09:47)
[2022-09-03] MEDS: Famotidine 20 MG TAB PO SCH (09:47)
[2022-09-03] MEDS: Acetaminophen 325 MG TAB PO PRN (09:51)
[2022-09-03 11:01] LABS: HBSAg Index 0.16 S/CO (0-0.99); Hep B Core Total Ab Non-Reactive (NonReactive); Hep B Core Total Index 0.11 S/CO (0-0.79); Hep B Surf Ag Non-Reactive S/CO (NonReactive); Hep C IgG Ab Non-Reactive S/CO (NonReactive); Hep C Index 0.16 S/CO (0-0.79)
[2022-09-03 11:11] LABS: HBSAB Concentration 14.71 mIU/mL; Hep B Surf AB Reactive (NonReactive)
[2022-09-03] MEDS ORDERED: Atorvastatin Calcium 40 MG TAB PO SCH (21:00)
[2022-09-04 05:54] LABS: Anion Gap 14 mmol/L (10-20); BUN (Urea Nitrogen) 29 mg/dL (8.4-25.7); Calc. Creatinine Clearance 12 mL/min (70-130); Calcium 8.5 mg/dL (7.8-10.44); Carbon Dioxide 26 mmol/L (23-31); Chloride 98 mmol/L (98-107); Estimated GFR 11; Glucose 125 mg/dL (83-110); Potassium 4.3 mmol/L (3.5-5.1); Sodium 134 mmol/L (136-145)
[2022-09-04] MEDS ORDERED: Non-Formulary Item 1 EACH (Omeprazole [Omeprazole] 20 MG Capsule.Dr) PO SCH (09:00)
[2022-09-04] MEDS ORDERED: Cetirizine HCl 10 MG TAB PO SCH (09:00)
[2022-09-04] MEDS ORDERED: Aspirin 81 mg Enteric Coated Tablet PO SCH (09:00)
[2022-09-04] MEDS: Acetaminophen 325 MG TAB PO PRN (10:01)
[2022-09-04] MEDS: Loratadine 10 MG TAB PO SCH (10:02)
[2022-09-04] MEDS: Famotidine 20 MG TAB PO SCH (10:03)
[2022-09-04 12:19] VITALS: TEMP 97.7
[2022-09-04 12:26] VITALS: BP 157/62
== END 2022-09-04 16:50 | disposition home or self-care (01) | DRG 640 ==
LOC: ERS 22:31 → NEURO 09-03 01:26
PROVIDERS: ADMIT Student in an Organized Health Care Education/Training Program; ATTEND Internal Medicine
DX: E87.5 Hyperkalemia (principal); N18.6 End stage renal disease; I12.0 Hypertensive chronic kidney disease with stage 5 chronic kidney disease or end stage renal disease; I48.0 Paroxysmal atrial fibrillation; E11.22 Type 2 diabetes mellitus with diabetic chronic kidney disease; I25.10 Atherosclerotic heart disease of native coronary artery without angina pectoris; E78.5 Hyperlipidemia, unspecified; E11.51 Type 2 diabetes mellitus with diabetic peripheral angiopathy without gangrene; E03.9 Hypothyroidism, unspecified; D63.1 Anemia in chronic kidney disease; Z95.5 Presence of coronary angioplasty implant and graft; Z89.511 Acquired absence of right leg below knee; Z91.018 Allergy to other foods; Z79.4 Long term (current) use of insulin; Z79.82 Long term (current) use of aspirin; Z79.899 Other long term (current) drug therapy; Z86.73 Personal history of transient ischemic attack (TIA), and cerebral infarction without residual deficits; Z87.891 Personal history of nicotine dependence
CPT/HCPCS: 36415; 36416; 70450; 72125; 80048; 80053; 83735; 84439; 84443; 85025; 86704; 93005; 93306; J1611; J1644

== ENCOUNTER 2024-05-02 14:35 | Emergency (ER) | payer MEDICARE, OTHER ==
[2024-05-02 15:42] LABS: #Basophils 0.04 10x3/uL (0.0-0.2); %Basophils 0.7 % (0.0-1.0); %Eosinophils 0.7 % (0.0-10.0); %Lymphocytes 9.2 % (21.0-51.0); %Monocytes 6.8 % (0.0-10.0); %Neutrophils 82.1 % (42.0-75.0); Hematocrit 43.2 % (42.0-52.0); Hemoglobin 13.6 g/dL (14.0-18.0); Mean Corpuscular HGB CONC 31.5 g/dL (32.0-36.0); Mean Corpuscular Hemoglobin 30.1 pg (27.0-31.0); Mean Corpuscular Volume 95.6 fL (78.0-98.0); Platelet Count 57 10x3/uL (130-400); RBC Distribution Width 16.3 % (11.5-14.5); Red Blood Cell (RBC) Count 4.52 mill/uL (4.70-6.10)
[2024-05-02 16:06] LABS: ALT (SGPT) 7 U/L (8-55); AST (SGOT) 22 U/L (5-34); Albumin 3.6 g/dL (3.4-4.8); Alkaline Phosphatase 108 U/L (40-110); Anion Gap 18 mmol/L (10-20); BUN (Urea Nitrogen) 35 mg/dL (8.4-25.7); Bilirubin, Total 1.2 mg/dL (0.2-1.2); Calc. Creatinine Clearance 0 mL/min (70-130); Calcium 9.7 mg/dL (7.8-10.44); Carbon Dioxide 26 mmol/L (23-31); Chloride 97 mmol/L (98-107); Estimated GFR 9; Globulin 4.3 g/dL (2.4-3.5); Glucose 57 mg/dL (83-110); Potassium 4.7 mmol/L (3.5-5.1); Protein, Total 7.9 g/dL (5.8-8.1); Sodium 136 mmol/L (136-145)
[2024-05-02 16:16] LABS: Troponin I 0.048 ng/mL (< 0.028)
[2024-05-02 20:06] LABS: Actual Bicarbonate (HCO3a) 27.4 mEq/L (22-28); Analyzer IN Cardio ER; Base Excess (BEa) 1.9 mEq/L (-2.0 to +3.0); CO2 Tension 46.5 mmHg (35.0-45.0); Calcium, Ionized (arterial) 1.13 mmol/L (1.12-1.30); Carboxyhemoglobin (COHb) 1.1 gm% (0.0-3.0); Hematocrit-ABG 39 % (42.0-52.0); Hemoglobin (Hb) 13.1 g/dL (14.0-18.0); O2 Tension (PaO2), arterial 77.4 mmHg (> 70.0); Potassium - ABG Lab 4.47 mmol/L (3.70-5.30); pH, Arterial 7.388 (7.35-7.45)
[2024-05-02 20:12] LABS: ALV-art Gradient 14.205 mmHg (0-20); Puncture Site Left Radial artery
== END 2024-05-02 20:40 | disposition home or self-care (01) ==
LOC: ERS 14:35
DX: R53.1 Weakness (principal); I12.0 Hypertensive chronic kidney disease with stage 5 chronic kidney disease or end stage renal disease; E11.22 Type 2 diabetes mellitus with diabetic chronic kidney disease; N18.6 End stage renal disease; I25.10 Atherosclerotic heart disease of native coronary artery without angina pectoris; Z99.2 Dependence on renal dialysis; Z55.6 Problems related to health literacy; Z75.3 Unavailability and inaccessibility of health-care facilities; Z75.8 Other problems related to medical facilities and other health care; Z89.511 Acquired absence of right leg below knee; Z95.5 Presence of coronary angioplasty implant and graft
CPT/HCPCS: 36415; 36600; 51701; 70450; 71045; 72125; 80053; 82550; 82805; 83880; 84484; 85025; 87428; 93005